=== PATIENT | female | born 1970 | race African-American/Black ===

== ENCOUNTER → 2022-11-17 08:09 | Outpatient (BNVA) | payer OTHER, SELFPAY | PROVIDERS: PCP Internal Medicine; Visit Provider Physician Assistant ==

== ENCOUNTER → 2022-11-28 08:17 | Outpatient (BNVA) | payer OTHER, SELFPAY | PROVIDERS: PCP Internal Medicine; Visit Provider Physician Assistant | DX: E66.9 Obesity, unspecified (principal); E78.5 Hyperlipidemia, unspecified; I89.0 Lymphedema, not elsewhere classified; I10 Essential (primary) hypertension; D68.9 Coagulation defect, unspecified; K58.9 Irritable bowel syndrome, unspecified; K76.0 Fatty (change of) liver, not elsewhere classified; Z98.84 Bariatric surgery status; Z68.38 Body mass index [BMI] 38.0-38.9, adult | CPT/HCPCS: 99202 ==

== ENCOUNTER 2023-01-02 08:10 | Outpatient (REF) | payer OTHER, SELFPAY ==
[2023-01-02 08:28] LABS: MANUAL DIFF FLAG NO
[2023-01-02 08:48] LABS: Basophils Percent Auto 0.4 % (0-2); Eosinophils Percent Auto 0.7 % (0-4); Hematocrit 42.4 % (37.0-47.0); Hemoglobin 13.7 g/dl (12.0-16.0); Imm Gran Abs Auto 0.01 X10*3/uL (0.00-0.03); Imm Gran Pct Auto 0.2 % (0.0-0.4); Lymphocytes Absolute Auto 1.5 X10*3/uL (1.2-4.9); Lymphocytes Percent Auto 27.7 % (20-40); Mean Corpuscular HGB Conc 32.3 g/dl (31.0-35.0); Mean Corpuscular Hemoglobin 29.8 pg (27.0-33.0); Mean Corpuscular Volume 92.4 fL (80.0-98.0); Mean Platelet Volume 9.3 fL (9.4-12.3); Monocytes Absolute Auto 0.3 X10*3/uL (0.1-1.2); Monocytes Percent Auto 5.6 % (2-11); Neutrophils Absolute Auto 3.5 x10*3/uL (2.0-8.3); Neutrophils Percent Auto 65.4 % (45-73); Platelet Count 291 X10*3/uL (160-400); Red Blood Count 4.59 X10*6/uL (4.20-5.50); White Blood Count 5.3 X10*3/uL (4.8-10.8)
[2023-01-02 09:02] LABS: Estimated Average Glucose 105 mg/dL; Hemoglobin A1c % 5.3 %
[2023-01-04 14:28] LABS: Calcium (PTHI) 10.1 mg/dL (8.6-10.4); PTHI 55 pg/mL (16-77)
[2023-01-05 14:54] LABS: Zinc 75 mcg/dL (60-130)
[2023-01-06 06:04] LABS: Vitamin A 31 mcg/dL (38-98)
[2023-01-07 15:39] LABS: Vitamin B1 <6 nmol/L (8-30)
== END 2023-01-02 08:11 | disposition home or self-care (01) ==
LOC: HO.LAB 08:10
PROVIDERS: PCP Internal Medicine; Visit Provider Physician Assistant
DX: D68.9 Coagulation defect, unspecified (principal); E66.9 Obesity, unspecified; E78.5 Hyperlipidemia, unspecified; I10 Essential (primary) hypertension; K58.9 Irritable bowel syndrome, unspecified; K76.0 Fatty (change of) liver, not elsewhere classified; Z98.84 Bariatric surgery status; Z71.3 Dietary counseling and surveillance
CPT/HCPCS: 36415; 80053; 80061; 82306; 82607; 82728; 82746; 83036; 83525; 83540; 83970; 84425; 84443; 84590; 84630; 85025; 86140; 97802

== ENCOUNTER → 2023-02-17 10:02 | Outpatient (BNVA) | payer OTHER, SELFPAY | PROVIDERS: PCP Internal Medicine; Visit Provider Physician Assistant | DX: E66.9 Obesity, unspecified (principal); I82.220 Acute embolism and thrombosis of inferior vena cava; Z68.35 Body mass index [BMI] 35.0-35.9, adult | CPT/HCPCS: 99212 ==

== ENCOUNTER 2023-03-21 09:10 | Outpatient (AMB) | payer OTHER, SELFPAY ==
--- NOTE | 2023-03-21 09:15 | A.OFFVIS_ITS ---
Intake VS Expanded 03/21/23 09:19 Height 5 ft 8 in Weight 226 lb 12.8 oz BMI 34.5 BP 127/82 Blood Pressure Location Rt brachial Blood Pressure Position Sitting Pulse 72 Pulse Source Pulse Oximeter Temp 96 F L Temperature Source Temporal Artery Scan Pulse Oximetry 98 Oxygen Delivery Method Room Air Body Fat 84.4 Body Fat Percentage 37.3 Free Fat Mass 142.2 Muscle Mass 135.2 Visceral Mass 10.0 Water Mass 101.2 BMR 1,939 Intake Visit Reasons: (OV) F/U MWL Allergies No Known Allergies Allergy (Verified 03/21/23 09:18) HPI HPI Comments History of Present Illness Details MWL patient started on 11/28/22 at 252.1 lbs, TBWL of 25.3 lbs or 10%. Goal of 160 lbs and being able to hike with daughter in [place]. Meal plan now: morning -shake afternoon - shake - sometimes frogets bar dinner Walks up to 5 miles per day. PFSH Surgical History History of back surgery Hx of breast biopsy Hx of colonoscopy Hx of hysterectomy Hx of laparoscopic gastric banding S/P laparoscopic sleeve gastrectomy Family History Mother No problems noted. Father No problems noted. Sister No problems noted. Sister No problems noted. Son No problems noted. Son No problems noted. Son No problems noted. Daughter No problems noted. Social History Alcohol intake: former Patient Tobacco Use Status: Never used Tobacco Physical Exam Vital Signs: Last Vital Signs Temp 96 F L 03/21/23 09:19 Pulse 72 03/21/23 09:19 BP 127/82 03/21/23 09:19 Pulse Ox 98 03/21/23 09:19 Oxygen Delivery Method Room Air 03/21/23 09:19 BMI result Body Mass Index 34.5 Assessment & Plan Assessment & Plan (1) Obesity: Code(s): E66.9 - Obesity, unspecified Plan: Pt has completed our MWL program with 25.3 lbs or 10% TBWL in 4 months. She will continue her meal and exercise , declined appt with RD at this time. We discussed o organization and midfulness as keys to continuing her new lifestyle. Will set goal of weighing less than 200 lbs and hining, using TBP videos also by next appt with me in 3 months. Patient is obese and is not considered stable at this time. I spent 25 minutes in total with patient reviewing/updating records, examining the patient and counseling the patient on weight management as detailed above. (2) S/P laparoscopic sleeve gastrectomy: Comment: [id number] Code(s): Z98.84 - Bariatric surgery status Coding Level of Care Code Est Pt Level 4 (93880) Diagnoses Obesity E66.9 S/P laparoscopic sleeve gastrectomy Z98.84
[2023-03-21 09:19] VITALS: BP 127/82; PULSE 72; TEMP 35.5; O2SAT 98; BMI 34.5
== END 2023-03-21 09:50 | disposition home or self-care (01) ==
PROVIDERS: PCP Internal Medicine; Visit Provider Physician Assistant
DX: E66.9 Obesity, unspecified (principal); Z68.34 Body mass index [BMI] 34.0-34.9, adult; Z90.3 Acquired absence of stomach [part of]; Z98.84 Bariatric surgery status
CPT/HCPCS: 99213

== ENCOUNTER → 2023-03-21 09:10 | Outpatient (BNVA) | payer OTHER, SELFPAY | PROVIDERS: PCP Internal Medicine; Visit Provider Physician Assistant | DX: E66.9 Obesity, unspecified (principal); Z98.84 Bariatric surgery status; Z68.34 Body mass index [BMI] 34.0-34.9, adult | CPT/HCPCS: 99212 ==

== ENCOUNTER 2023-08-11 08:58 | Outpatient (AMB) | payer OTHER, SELFPAY ==
--- NOTE | 2023-08-11 09:06 | A.SPINEOV_ITS ---
Intake Intake Visit Reasons: Lumbar spinal stenosis Intake Note: Ms. Goff is here today c/o low back pain. MRI done @ [facility]. Manager Non Profit Required: No Allergies No Known Allergies Allergy (Verified 03/21/23 09:18) Assessment & Plan Assessment & Plan (1) Chronic SI joint pain: Code(s): M53.3 - Sacrococcygeal disorders, not elsewhere classified; G89.29 - Other chronic pain Plan Dear Cale, Thank you for referring Mrs Goff to our office today. She is a very nice 53-year-old female with a history of a previous lumbar surgery [place] [address] Mata who presents to the office today, who presents with a multiyear history of pain on the left side of her low back which radiates down into her posterior thigh and into her calf. The pain has progressed slowly over time, but it is now to a point where it is there 24 hours a day. It is particularly bad at night when she is trying to sleep. If she lays on her back or on her left side it will radiate down her leg. She can get up and move around but it does not necessarily help. The symptoms are not provoked specifically with activity but prolonged walking can make her feel as though she has to limp and she will walk in the flexed posture. Using a shopping cart can help when she is in the store. She has taken over the years medications including tramadol, Tylenol, morphine, oxycodone. She cannot take anti-inflammatories due to a clotting disorder and a blood thinner that she is on. She has been through physical therapy. She has also been through of a host of cortisone injections with Dr. Naranjo. There is a list of these on the [facility] website from an office visit that he recently had for her. She did recently have an L4 block but does not report any significant improvement from that. PMH: History of colon cancer, she had a polyp removed which was cancerous but no further subsequent treatment has been necessary. 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 History of depression, anxiety, recurrent UTI, irritable bowel syndrome, GERD, hypertension, borderline high cholesterol Social hx: She reports that she does not smoke cigarettes, she did try marijuana for her pain and it helped but she did not like the idea of using a long-term. She has 1 cocktail each evening but no excessive alcohol consumption. She has 4 children, all natural births. Medications: Eliquis, tramadol, Tylenol, Ativan, Zyrtec, Flonase, Lasix, Ditropan, Linzess, Cozaar, Protonix, duloxetine Allergies: Oxycodone and Vicodin give her nausea Physical exam: No acute distress, strength and reflexes normal, she has positive FEDERICO sign on the left, positive Gaenslen sign on the left as well as positive finger Carson sign on the left. Imaging review: She has a lumbar MRI done at [facility] in 2022 showing a severely collapsed disc at L5-S1 with what appears to be postsurgical changes on the left side of the lamina. I do not see any specific nerve compression other than some mild foraminal stenosis. Impression: 53-year-old female history of a previous L5-S1 surgery in 1999 presents with a multiyear history of a left-sided low back pain going down into her posterior thigh and into her calf. It is particularly worse at night and when she sleeping on her back or on her left side. It can be elicited with activity as well to a degree. She has been through numerous rounds of conservative treatment for this including PT, injections and medication trials. There are 2 potential sources of her pain. The 1st thing that stands out obviously that she has a severely collapsed disc at L5-S1 but only very mild nerve root impingement. The 2nd thing and I think this may be more pertinent is that her SI joint is demonstrating on physical exam multiple signs of irritation and her story seems to fit well with SI joint inflammation, particularly in that there is a lot of pain with laying on her side at night that will cause it to go down her leg. She did have for natural births, and it is known that that can be a factor in causing SI joint pain. She did have an SI joint injection according to the [facility] records, but it was many years ago. I am going to send a referral back to Dr. Naranjo to see if he will inject this area to more time to see we can get a consistent response with pain relief. If that does not help, then I think we need to look back at the L5-S1 disc as the potential source. Thank you for allowing us to care for your patient. The total time spent with this visit with this patient was 45 minutes reviewing history, physical exam, lumbar MRI imaging review, and implementation of treatment plan or further diagnostic testing Ezio Machado MD,PhD [facility] Orders: Referrals Physiatry Referral G89.29 - Other chronic pain, M53.3 - Sacrococcygeal disorders, not elsewhere classified Coding Level of Care Code New Pt Level 4 (70990) Diagnoses Chronic SI joint pain M53.3; G89.29
== END 2023-08-11 09:38 | disposition home or self-care (01) ==
PROVIDERS: PCP Internal Medicine; Referring Provider Physician Assistant; Visit Provider Physician Assistant
DX: M53.3 Sacrococcygeal disorders, not elsewhere classified (principal); G89.29 Other chronic pain
CPT/HCPCS: 99204

== ENCOUNTER → 2023-08-11 08:58 | Outpatient (BNVA) | payer OTHER, SELFPAY | PROVIDERS: PCP Internal Medicine; Visit Provider Physician Assistant | DX: M53.3 Sacrococcygeal disorders, not elsewhere classified (principal); G89.29 Other chronic pain | CPT/HCPCS: 99202 ==

== ENCOUNTER 2025-05-21 08:41 | Outpatient (REF) | payer OTHER, SELFPAY ==
--- NOTE | 2025-05-21 08:43 | EMG_ITS ---
Chief complaint: Right worse than left arm pain and numbness Reason for referral: Evaluate for Carpal Tunnel Syndrome Referred by: Dar READ Procedure done: Bilateral upper extremities NCS/EMG Precautions and/or limitations: None The limb temperature was monitored continuously and remained between 32-36 degrees C during the performance of the NCS. Nerve Conduction Studies Anti Sensory Summary Table ?Stim Site NR Onset (ms) Norm Onset (ms) Peak (ms) Norm Peak (ms) O-P Amp (?V) Norm O-P Amp Site1 Site2 Delta-0 (ms) Dist (cm) Compa (m/s) Norm Compa (m/s) Left Median Anti Sensory (2nd Digit) Wrist ? 3.5 4.6 <3.6 27.6 >10 Wrist 2nd Digit 3.5 14.0 40 Right Median Anti Sensory (2nd Digit) Wrist ? 3.1 4.0 <3.6 24.5 >10 Wrist 2nd Digit 3.1 14.0 45 Right Radial Anti Sensory (Thumb) Forearm ? 1.4 1.9 <3.1 43.9 Forearm Thumb 1.4 0.0 Left Ulnar Anti Sensory (5th Digit) Wrist ? 2.4 3.2 <3.7 42.2 >15.0 Wrist 5th Digit 2.4 14.0 58 Right Ulnar Anti Sensory (5th Digit) Wrist ? 2.4 3.3 <3.7 26.1 >15.0 Wrist 5th Digit 2.4 14.0 58 Motor Summary Table ?Stim Site NR Onset (ms) Norm Onset (ms) O-P Amp (mV) Norm O-P Amp iAmp (mV) Amp (1st) (%) Site1 Site2 Delta-0 (ms) Dist (cm) Compa (m/s) Norm Compa (m/s) Left Median Motor (Abd Poll Brev) Wrist ? 7.2 <3.9 3.4 >4.5 3.9 100.0 Elbow Wrist 5.0 23.0 46 >45 Elbow ? 12.2 3.1 3.4 91.2 Right Median Motor (Abd Poll Brev) Wrist ? 4.3 <3.9 8.6 >4.5 9.6 100.0 Elbow Wrist 4.6 23.0 50 >45 Elbow ? 8.9 7.3 8.1 84.9 Left Ulnar Motor (Abd Dig Minimi) Wrist ? 2.8 <3.0 10.5 >5 12.0 100.0 B Elbow Wrist 3.9 22.0 56 >45 B Elbow ? 6.7 10.3 11.8 98.1 A Elbow B Elbow 1.4 10.0 71 >45 A Elbow ? 8.1 10.2 11.6 97.1 Right Ulnar Motor (Abd Dig Minimi) Wrist ? 2.9 <3.0 11.5 >5 15.0 100.0 B Elbow Wrist 3.7 22.0 59 >45 B Elbow ? 6.6 11.6 15.1 100.9 A Elbow B Elbow 1.4 10.0 71 >45 A Elbow ? 8.0 11.7 15.1 101.7 EMG ?Side Muscle Nerve Root Ins Act Fibs Psw Amp Dur Poly Recrt Int Pat Comment Right 1stDorInt Ulnar C8-T1 Nml Nml Nml Nml Nml 0 Nml Complete Right FlexCarRad Median C6-7 Nml Nml Nml Nml Nml 0 Nml Complete Right FlexCarpiUln Ulnar C8,T1 Nml Nml Nml Nml Nml 0 Nml Complete Right Biceps Musculocut C5-6 Nml Nml Nml Nml Nml 0 Nml Complete Right Triceps Radial C6-7-8 Nml Nml Nml Nml Nml 0 Nml Complete Right Deltoid Axillary C5-6 Nml Nml Nml Nml Nml 0 Nml Complete Left 1stDorInt Ulnar C8-T1 Nml Nml Nml Nml Nml 0 Nml Complete Left FlexCarRad Median C6-7 Nml Nml Nml Nml Nml 0 Nml Complete Left FlexCarpiUln Ulnar C8,T1 Nml Nml Nml Nml Nml 0 Nml Complete Left Biceps Musculocut C5-6 Nml Nml Nml Nml Nml 0 Nml Complete Left Triceps Radial C6-7-8 Nml Nml Nml Nml Nml 0 Nml Complete Left Deltoid Axillary C5-6 Nml Nml Nml Nml Nml 0 Nml Complete FINDINGS: Right median motor nerve showed prolonged distal latency, normal amplitude and normal conduction velocity. Left median motor nerve showed prolonged distal latency, small amplitude and normal conduction velocity. Bilateral median sensory nerves showed prolonged peak latency. All other nerves tested were within normal. Concentric needle EMG was performed in selected muscles of the bilateral upper extremities. Study did not reveal signs of electric abnormalities as shown in the table above. IMPRESSION: 1. This is an abnormal study. 2. There is electrodiagnostic evidence for bilateral moderate-severe median neuropathy at the wrist, consistent with carpal tunnel syndrome. 3. There is no electrodiagnostic evidence for ulnar neuropathy, brachial plexopathy, or cervical radiculopathy. Thank you for your kind referral. Yahaira Carolina MD, LIZETH Board Certified, [place] Board of [employer] Medicine and Rehabilitation (ABPMR) Board Certified, [place] Board of Electrodiagnostic Medicine (ABEM) CODIN [phone] MTDD
--- OUTSIDE RECORDS SUMMARY | 2025-05-21 10:04 | XMS_ITS | Clinical Summary ---
Author Organization [facility] Address [address] [place] [address] Care Team Providers Care Diet Aide Name Role Phone Unavailable Primary Care Provider Unavailabl e Source Comments PLEASE NOTE, if this patient is a minor, it may be UNLAWFUL to discuss sensitive information that is contained in these records (such as FAMILY PLANNING, MENTAL HEALTH or SUBSTANCE ABUSE) with the minor patient's parent or other person without the patient's specific authorization.[facility] Social History Tobacco Use Types Packs/Day Years Used Date Smoking Tobacco: Never Assessed Social Connections Answer Date Recorded Social Connections and Isolation 0 02/24/2021 Financial Resource Strain Answer Date R ecorded Financial Resource Strain 0 2020 Stress Answer Date Recorded Stress 0 02/24/2021 Physical Activity Answer Date Recorded Physical Activity 0 02/24/2021 Food Insecurity Answer Date Recorded Food 0 02/24/2021 Transportation Needs Answer Date Record ed Transportation 0 02/24/2021 Housing Stability Answer Date Recorded Housing 0 02/24/2021 Safety and Environment Answer Date Kelvin rded Safety 0 02/24/2021 Utilities Answer Date Recorded Utilities 0 02/24/2021 Employment Answer Date Recorded Employment 0 02/24/2021 Comments Unknown Sex and Gender Information Value Date Recorded Sex Assigned at Not on file Legal Sex Female 5:23 AM PDT Gender Identity Not on file Sexual Orientation Not on file Plan of Treatment Not on file Insurance [facility] NET DENTAL
--- OUTSIDE RECORDS SUMMARY | 2025-05-21 10:04 | XMS_ITS | Encounter Summary ---
Author Organization [facility] Address [address] [place] [address] Care Team Providers Care Tank Truck Mechanic Name Role Phone Antelmo Ruelas MD Primary Care Provider [phone] Reason for Visit * Reason Onset Date Comments Forms/questionnaires 05/14/2025 [facility] Medical Form Encounter Details Date Type Department Care Team (Late st Contact Info) Description 05/14/2025 Telephone Internal Medicine - [address] [phone] Antelmo Ruelas MD [address] [place] [id number] Social History Tobacco Use Types Packs/Day Years Used Date Smoking Tobacco: Never Smokeless Tobacco: Never Alcohol Use Standard Drinks/Week Comments Yes 0 (1 standard drink = 0.6 oz pur e alcohol) Interpersonal Safety Answer Date Record ed Physical Abuse 10/09/2024 Verbal Abuse 10/09/2024 Comments No Sex and Gender Information Value Date Recorded Sex Assigned at Female 07/30/2024 1:28 PM EST Legal Sex Female 6:07 AM EST Gender Identity Female 07/30/2024 1:28 PM EST Sexual Orientation Straight 07/30/2024 1: 28 PM EST documented as of this encounter Progress Notes * Belem Mccain MA - 05/19/2025 3:48 PM EDT See message from 04/11/25. * Kt Breen - 05/19/2025 8:40 AM EDT Pt came in person to check on the status of her paperwork, pls call the pt back at [phone]. The deadline of this paperwork was 04/25/25. * Stephanie Olivo - 05/14/2025 1:29 PM EDT Please see 04-11-25 encounter Pt states that she picked up 1 of 2 forms that were dropped off but the one she dropped off 04-11-[address] Ruelas and she needs it cayetano. documented in this encounter Plan of Treatment Upcoming Encounters Date Type Department Care Team (Late st Contact Info) Description 07/10/2025 8:15 AM EDT Office Visit Bariatric Surgery - [address] [phone] Lucretia Garvin PA [address] [place] [phone] 12/22/2025 3:40 PM EDT Appointment Radiology Department - [address] [phone] documented as of this encounter Visit Diagnoses Not on filedocumented in this encounter Care Teams Tank Truck Mechanic Relationship Specialty Start Date End Date Antelmo Ruelas MD [address] [place] [phone] PCP - General Internal Medicine 07/01/11 documented as of this encounter
--- OUTSIDE RECORDS SUMMARY | 2025-05-21 10:04 | XMS_ITS ---
Author Organization [address] [facility] Address [address] [place] [address] Phone Care Team Providers Care Ride Assembly Supervisor Name Role Phone Antelmo Ruelas MD Primary Care Provider [phone] Active Problems Problem Noted Date Diagnosed Date S/P bariatric surgery 12/12/2024 History of recurrent deep vein thrombosis (DVT) 10/21/2024 Bilateral primary osteoarthritis of knee 025 Abdominal pain 10/16/2024 Phlebitis 10/16/2024 Class 2 severe obesity with serious comorbidity and body mass index (BMI) of 35.0 to 35.9 in adult ([facility] V24, [facility] V28) 10/16/2024 Pulmonary embolism without a cute cor pulmonale ([facility] V24, [facility] V28) 07/25/2024 Hepatic steatosis 11/10/2022 History of COVID-19 09/14/2021 Obstructive sleep apnea 12/09/2020 Overview (07/01/2024): [facility] Home Sleep Apnea Test: Date 12/02/2020; Wt 270#; BMI 41; CHI (AHI) 5, AI 1; HI 4; Unclassified apneas 0; Obstructive apneas 0; Central apneas 4; Mixed apneas 0; hypopneas 14; average oxygen saturation 93% (lowest 88% without saturations <88% for 5% or more of study) - Obstructive Sleep Apnea - mild; mostly hypopneas with central apneas; without sleep related hypoventilation by 2020 home sleep apnea test. 11/2021 Home Sleep Study did not reveal sleep apnea or nocturnal hypoxia. mychart sent - if still symptomatic; recommend diagnostic polysomnogram Iron deficiency 09/17/2020 Overview (07/01/2024): Without anemia, 09/2020 Vitamin D deficiency 09/17/2020 Overview (07/01/2024): 09/2020 Uterine fibroid 09/16/2020 Venous insufficiency of both lower extremities 0 09/16/2020 Breast mass 07/07/2020 Overview (07/01/2024): right breast major duct excision on 05/29/2020; the pathology demonstrates a large intraductal papilloma and apocrine metaplasia. 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 Resection was a cure. NO potential for recurrance at that location. 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 Past Plans No past plan information found. Radiation Treatments * No radiation treatments are documented for this patient in [facility]. Treatments may have been administered in another system. Lifetime Dose Tracking * Chemical Lifetime Dose Automatic Entry Manual Entr y Fluoro Time 2 minutes 2 minutes 0 minutes Air Kerma 86.82 mGy 86.82 mGy 0 mGy Dose Area Product 1,478.8 mGy-cm2 1,478.8 mGy-cm2 0 mG y-cm2
--- OUTSIDE RECORDS SUMMARY | 2025-05-21 10:05 | XMS_ITS | Clinical Summary ---
Author Organization [facility] Address [address] [place] [address] Phone Care Team Providers Care Circus Hand Name Role Phone Antelmo Ruelas MD Primary Care Provider [phone] Allergies Active Allergy Reactions Criticality Noted Date Comments Hydrocodone Nausea Only Low 10/09/2024 HYDROMORPHONE OK Oxycodone Hcl Nausea And Vomiting Low 07/01/2024 HYDROMORPHONE OK Medications cetirizine (ZyrTEC) 10 mg tablet Take 1 tablet (10 mg total) by mouth 1 (one) time each day. 2 Active fluticasone propionate (FLONASE) 50 mcg/actuation nasal spray INHALE 2 SPRAYS BY NASAL ROUTE DAILY 2 Active LORazepam (ATIVAN) 0.5 mg tablet Take 1 tablet (0.5 mg total) by mouth if needed for anxiety. Active rivaroxaban (XARELTO) 20 mg tablet Take by mouth 1 (one) time each day with dinner. Take with food. Active losartan (COZAAR) 25 mg tablet Take 1 tablet (25 mg total) by mouth 1 (one) time each day. 90 tablet 1 4 Active gabapentin (NEURONTIN) 300 mg capsule Take 1 capsule (300 mg total) by mouth 3 (three) times a day. Active albuterol HFA (PROAIR HFA ; PROVENTIL HFA ; VENTOLIN HFA) 90 mcg/actuation inhalerIndicati ons:Acute cough Inhale 2 puffs by mouth every 4 (four) hours if needed for wheezing. Inhale 2 Puffs into the lungs every 4 hours as needed for Cough or Wheezing. - Inhalation 6.7 g 4 Active multivitamin tablet Take 1 tablet by mouth 1 (one) time each day. Active BIOTIN ORAL Take by mouth. Act fiorella ferrous sulfate 325 mg (65 mg iron) EC tablet Take 1 tablet (325 mg total) by mouth 1 (one) time each day with breakfast. Do not crush, chew, or split. Active omeprazole (PriLOSEC) [address] capsule Take 1 capsule (40 mg total) by mouth 1 (one) time each day. DO NOT CRUSH OR CHEW 5 Active chlorthalidone (HYGROTON) 25 mg tablet Take 1 tablet (25 mg total) by mouth 1 (one) time each day. Active methylPREDNISol one (MEDROL) 4 mg tablet Take 6 tabs PO on day 1, 5 tabs PO on day 2, 4 tabs PO on day 3, 3 tabs PO on day 2, 2 tabs PO on day 5 and 1 tab PO on day 6. 21 tablet 5 Active Active Problems Problem Noted Date Diagnosed Date S/P bariatric surgery 12/12/2024 History of recurrent deep vein thrombosis (DVT) 10/21/2024 Bilateral primary osteoarthritis of knee 025 Abdominal pain 10/16/2024 Phlebitis 10/16/2024 Class 2 severe obesity with serious comorbidity and body mass index (BMI) of 35.0 to 35.9 in adult ([facility] V24, [facility] V28) 10/16/2024 Pulmonary embolism without a cute cor pulmonale ([facility] V24, [facility] V28) 07/25/2024 Hepatic steatosis 11/10/2022 History of COVID-19 09/14/2021 Obstructive sleep apnea 12/09/2020 Overview (07/01/2024): [facility] Home Sleep Apnea Test: Date 12/02/2020; Wt [...] Hips, Knees Recurrent UTI 01/10/2012 Hyperlipidemia 09/15/2011 Encounters Date Type Department Care Team Description 05/14/2025 Telephone Internal Medicine - [address] [phone] Antelmo Ruelas MD 05/06/2025 Telephone Internal Medicine - [address] [phone] Antelmo Ruelas MD 04/24/2025 7:30 AM EDT Treatment [address] [phone] Richard Fernandez, [employer] Strain of right Achilles tendon, initial encounter (Primary Dx) 04/11/2025 Telephone Internal Medicine - [address] [phone] Antelmo Ruelas MD 04/08/2025 6:33 PM EDT - 04/08/2025 9:50 PM EDT Emergency [facility] Emergency [address] [place] [phone] Antelmo Montero MD Pain (Primary Dx); Hx of pulmonary embolus; Deep vein thrombosis (DVT) of right lower extremity, unspecified chronicity, unspecified vein ([facility] V24, [facility] V28) Discharge Disposition: Home or Self Care 04/08/2025 1:30 PM EDT Office Visit Internal Medicine - [address] [phone] Treva Bergman, LIN Acute pain of left shoulder (Primary Dx); Acute midline thoracic back pain; Left hand pain; Pulmonary embolism without acute cor pulmonale, unspecified chronicity, unspecified pulmonary embolism type ([facility] V24, [facility] V28) 03/21/2025 Telephone Internal Medicine - [address] [phone] Sissy Shah RN 03/19/2025 9:30 AM EDT Office Visit Walk-In Clinic - [address] [phone] Herb Baum PA Right lower quadrant abdominal pain (Primary Dx); Symptoms involving urinary system 03/18/2025 Telephone Internal Medicine - [address] [phone] Antelmo Ruelas MD 03/13/2025 7:15 AM EDT Evaluation [facility] Rehabilitation [facility] [address] [place] [address] Anne Fernandez, PT Strain of right Achilles tendon, initial encounter (Primary Dx) 03/11/2025 8:15 AM EDT Office Visit Bariatric Surgery - [place] [address] [place] [address] Lucretia Garvin PA Class 2 severe obesity due to excess calories with serious comorbidity and body mass index (BMI) of 35.0 to 35.9 in adult (CMS/HCC V24, [facility] V28) (Primary Dx); Bariatric surgery status 02/24/2025 2:30 PM EDT Office Visit Obstetrics and Gynecology - [address] [phone] Sarah Novak, WANDA Vulvar irritation (Primary Dx) from Last 3 Months Immunizations Name Administration Dates Next Due Influenza Quadravalent, MDCK , 0.5ml, preservative free (Flucelvax) 6mo and older 06/21/2023,06/23/2022,06/10/2021,2019 Influenza trivalent, 0.5mL, preservative free (Fluarix; FluLaval; Fluzone) ages 6mo and older (Afluria) 3 years and older 06/15/2015,06/18/2012,08/29/2011 PPD Test 01/20/2017,06/18/2012 Rubella 10/23/2015 Tb Skin Test 10/28/2022 Tdap Tetanus diptheria acell ular pertussis (Boostrix; Adacel) 7yo and older 06/21/2023,08/29/2011 Surgical History Surgery Date Site/Laterality Comments GASTRIC BYPASS 04/16/2016 PROCEDURE: GASTRIC BYPASS FOR OBESIT; COMMENT: Sleeve Gastrecetomy, previous lap band surgery BACK SURGERY 10/17/1999 PROCEDURE: HISTORICAL BACK SURGERY; COMMENT: Lumbar Laminectomy UPPER GASTROINTESTINAL ENDOSCOPY 04/09/2003 Benjamin PROCEDURE: LA UPPER GI ENDOSCOPY PERFORMED; COMMENT: Antral gastritis; H. pylori treated with Prevpac UPPER GASTROINTESTINAL ENDOSCOPY 11/19/2012 PROCEDURE: LA UPPER GI ENDOSCOPY PERFORMED; COMMENT: lap band; chronic gastritis with H. pylori UPPER GASTROINTESTINAL ENDOSCOPY 07/01/2020 PROCEDURE: UPPER GI ENDOSCOPY/EXAM; COMMENT: esophagitis COLONOSCOPY 07/01/2020 PROCEDURE: HISTORICAL COLONOSCOPY; COMMENT: large pedunculated polyp removed from transverse colon with adenocarcinoma OTHER SURGICAL HISTORY PROCEDURE: ---- OTHER ----; COMMENT: IVC filter, remains in place OTHER SURGICAL HISTORY PROCEDURE: ---- OTHER ----; COMMENT: ablation of uterine fibroid COLONOSCOPY 08/04/2021 PROCEDURE: HISTORICAL COLONOSCOPY; COMMENT: tubular adenoma OTHER SURGICAL HISTORY 12/07/2021 PROCEDURE: LA SLCTV CATH PLMT JOE SYS 1ST ORDER BRANCH OTHER SURGICAL HISTORY 12/07/2021 PROCEDURE: X-RAY EXAM OF TRUNK VEINS OTHER SURGICAL HISTORY 12/07/2021 PROCEDURE: LA INTRAVASCULAR US NONCORONARY RS&I INTIAL VESSEL OTHER SURGICAL HISTORY 12/07/2021 PROCEDURE: LA INTRAVASCULAR US NONCORONARY RS&I ADDL VESSEL OTHER SURGICAL HISTORY 12/07/2021 PROCEDURE: ULTRASOUND GUIDANCE FOR VASCULAR AC TOTAL ABDOMINAL HYSTERECTOMY GASTRIC BAND ADJUSTMENT BAND REMOVED STEREOTACTIC CORE BIOPSY BX BREAST W DEVICE 1ST LESION STEREOTACTIC GUIDE Left benign Medical History Medical History Date Comments History of DVT (deep vein thrombosis) 08/19/2011 DX:History of DVT (deep vein thrombosis) Essential hypertension 01/27/2016 DX:Essent ial hypertension IBS (irritable bowel syndrome) 07/19/2012 D X:IBS (irritable bowel syndrome) Anticoagulated on Coumadin 12/17/2017 DX:An ticoagulated on Coumadin Morbid obesity with BMI of 4 0.0-44.9, adult (CMS/HCC V24, CMS/HCC V28) 11/02/2015 DX:Morbid obesity wit h BMI of 40.0-44.9, adult (HCC) GERD (gastroesophageal reflu x disease) 05/21/2013 DX:GERD (gastroesophageal re flux disease); COMMENT: H.pylori Osteoarthritis 06/18/2012 DX:Osteoarthriti s; COMMENT: Cervical, & Lumbosacral Spine, Hips, Knees History of bariatric surgery 06/18/2012 DX: History of bariatric surgery; COMMENT: Gastric sleeve, previous lap band Allergic rhinitis 11/30/2018 DX:Allergic rh initis Hyperlipidemia 09/15/2011 DX:Hyperlipidemi a Recurrent UTI 01/10/2012 DX:Recurrent UTI Hematuria, microscopic 11/30/2018 DX:Hematu tab, microscopic Stress incontinence 11/30/2018 DX:Stress in continence Lumbar radiculitis 11/30/2018 DX:Lumbar rad iculitis Adjustment reaction with anx iety and depression 02/13/2018 DX:Adjustment reaction with anxiety and depression Chronic constipation 07/19/2012 DX:Chronic constipation Lymphedema 11/02/2015 DX:Lymphedema 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 Resection was a cure. NO potential for recurrance at that location. Recommend repeat colonoscopy in 1 year and then every 5 years Asthma Hiatal hernia Chronic kidney disease CYST ON K IDNEY Clotting disorder ([facility]/HCC V24) Pulmonary embolism (CMS/HCC V24, CMS/HCC V28) Neuromuscular disorder (CMS/ HCC V24, [facility]/HCC V28) CLOTS IN LEGS Family History Medical History Relation Name Comments No Known Problems Brother 1 No Known Problems Brother 2 Allergies Daughter Other: muscle deficiency Daughter Hypertension Father Colon cancer Maternal Grandfather Other: bone cancer Maternal Grandfather Prostate cancer Maternal Grandfather Throat cancer Maternal Grandfather COPD Maternal Grandmother CA, Hyp ertension, Cataract No Known Problems Mother No Known Problems Sister 1 No Known Problems Sister 2 No Known Problems Sister 3 No Known Problems Son 1 No Known Problems Son 2 No Known Problems Son 3 Blindness Neg Hx Breast cancer Neg Hx Glaucoma Neg Hx Macular degeneration Neg Hx Strabismus Neg Hx Relation Name Status Comments Brother 1 Alive Brother 2 Alive Daughter Alive Father Alive Maternal Grandfather Maternal Grandmother Materna l Grandmother with PE/DVT Mother Alive Sister 1 Alive Sister 2 Alive Sister 3 Alive Son 1 Alive Son 2 Alive Son 3 Alive Social History Tobacco Use Types Packs/Day Years Used Date Smoking Tobacco: Never Smokeless Tobacco: Never Tobacco Cessation:Counseling Given: Not Answered Alcohol Use Standard Drinks/Week Comments Yes 0 [...] Orientation Straight 07/30/2024 1: 28 PM EST Obstetrics History Para Term AB IAB SAB Ectopic Multiple Livin g Live Births 4 4 4 4 4 Date Outcome GA Total Labor Labor/2nd/3rd Weight Sex Type Anes PTL Mica A1 A5 Name Clin 1982 Term M Vag-Spo nt Living 1983 Term M Vag-Spo nt Living 1989 Term F Incompl ete M Living 1992 Term M Vag-Spo nt Living Last Filed Vital Signs Vital Sign Reading Time Taken Comments Blood Pressure 127/86 04/08/2025 9:24 PM EDT Pulse 59 04/08/2025 9:24 PM EDT Temperature 36.8 C (98.3 F) 04/08/2025 9:24 PM EDT Respiratory Rate 18 04/08/2025 9:24 PM EDT Oxygen Saturation 100% 04/08/2025 9:24 PM EDT Inhaled Oxygen Concentration - - Weight 100 kg (221 lb) 04/08/2025 3:33 PM EDT Height 172.7 cm (5' 8 ) 04/08/2025 3:33 PM EDT Body Mass Index 33.6 04/08/2025 3:33 PM EDT Plan of Treatment Upcoming Encounters Date Type Department Care Team (Late st Contact Info) Description 07/10/2025 8:15 AM EDT Office Visit Bariatric Surgery - [address] [phone] Lucretia Garvin, JACEK [address] [place] [phone] 12/22/2025 3:40 PM EDT Appointment Radiology Department [address] [phone] Health Maintenance Due Date Last Done Comments Hepatitis B Vaccines (1 of 3 - 19+ 3-dose series) 1987 Zoster Vaccines (1 of 2) 1987 Cervical Cancer Screening: Pap Smear 1989 Pneumococcal Vaccine: 50+ Years (2 of 2 - PCV) 05/11/2016 05/11/2015 COVID-19 Vaccine (3 - Moderna risk series) 12/21/2020 11/23/2020, 10/26/2020 HIV Screening 08/20/2022 Hepatitis C Screening 08/20/2022 Social Influencers of Health Screening 08/20/2022 Depression Screening 09/11/2024 Influenza Vaccine (#1) 2025 , 06/21/2023, 06/23/2022, Additional history exists Hypertension/CHF/CAD Annual BMP Blood Test 04/08/2026 04/08/2025, 01/14/2025, 10/10/2024, Additional history exists Breast Cancer Screening 12/16/2026 12/17/19 25, 04/16/2021, 03/12/2020, Additional history exists Colorectal Cancer Screening: Colonoscopy 03/23/2028 03/23/2023 Cholesterol Screening (Lipid Panel) 01/14/2030 01/14/2025, 10/23/2023 DTaP,Tdap,and Td Vaccines (4 - Td or Tdap) 06/21/2033 06/21/2023, 06/21/2022, 08/29/2011 Hepatitis A Vaccines Aged Out 01/02/2014 No long er eligible based on patient's age to complete this topic HIB Vaccines Aged Out No longer eligi ble based on patient's age to complete this topic HPV Vaccines Aged Out No longer eligi ble based on patient's age to complete this topic IPV Vaccines Aged Out No longer eligi ble based on patient's age to complete this topic MMR Vaccines Aged Out No longer eligi ble based on patient's age to complete this topic Meningococcal ACWY Vaccine Aged Out N o longer eligible based on patient's age to complete this topic Meningococcal B Vaccine Aged Out No l onger eligible based on patient's age to complete this topic RSV Immunization Patients Under 20 months Aged Out No longer eligible based on patient's age to complete this topic Varicella Vaccines Aged Out No longer eligible based on patient's age to complete this topic Procedures Procedure Name Priority Date/Time Associated Diagnosis Comments URINALYSIS MICROSCOPIC ONLY Routine 05/07/2025 1:09 PM EDT Micturition frequency URINALYSIS MICROSCOPIC ONLY Routine 05/07/2025 1:09 PM EDT Micturition frequency CULTURE URINE Routine 05/07/2025 1:09 PM EDT Micturition frequency ECG ANNOTATED 04/10/2025 TROPONIN I HIGH SENSITIVITY STAT 04/08/2025 7:[address] ANGIO CHEST WO AND/OR W CONTRAST STAT 04/08/2025 7:18 PM EDT Pain Hx of pulmonary embolus ECG 12-LEAD STAT 04/08/2025 7:01 PM EDT VAS US DUPLEX LOWER EXT VENOUS RIGHT STAT 04/08/2025 6:13 PM EDT Pain CBC WITH AUTO DIFFERENTIAL STAT 04/08/2025 3:48 PM EDT PROTHROMBIN TIME WITH INR STAT 04/08/2025 3:48 PM EDT MAGNESIUM STAT 04/08/2025 3:48 PM EDT LIPASE STAT 04/08/2025 3:48 PM EDT COMPREHENSIVE METABOLIC PANEL STAT 04/08/2025 3:48 PM EDT CBC AND DIFFERENTIAL STAT 04/08/2025 3:48 PM EDT POC URINE NON-AUTO W/O MICRO Routine 03/19/2025 10:39 AM EDT Symptoms involving urinary system URINALYSIS MICROSCOPIC ONLY Routine 03/19/2025 10:20 AM EDT Symptoms involving urinary system URINALYSIS MICROSCOPIC ONLY Routine 03/19/2025 10:20 AM EDT Symptoms involving urinary system CULTURE URINE Routine 03/19/2025 10:20 AM EDT Symptoms involving urinary system LIPID PANEL WITH REFLEX TO DIRECT LDL Routine 01/14/2025 1:32 PM EDT Essential hypertension MG MAMMO DIGITAL SCREENING W SANTY BILAT Routine 12/16/2024 5:36 PM EDT Screening mammogram for breast cancer HM COLONOSCOPY Routine 03/23/2023 from Last 3 Months or Most Recently Relevant to Health Maintenance Results * (ABNORMAL) Urinalysis microscopic only (05/07/2025 1:09 PM EDT) Only the most recent of2 resultswithin the time period is included. RBC, Urine 3.7 0 - 4 /HPF LAB URINALYSIS - AUTOMATED METHOD 05/07/2025 3:06 PM [facility] WBC, Urine 8.4(H) 0 - 4 /HPF LAB URINALYSIS - AUTOMATED METHOD 05/07/2025 3:06 PM [facility] Squamous Epithelial, Urine 19 0 - 60 /LPF LAB URINALYSIS - AUTOMATED METHOD 05/07/2025 3:06 PM [facility] Bacteria, Urine Many(A) Negative /HPF LAB URINALYSIS - AUTOMATED METHOD 05/07/2025 3:06 PM [facility] Hyaline Casts, Urine 0.8 0 - 3 /LPF LAB URINALYSIS - AUTOMATED METHOD 05/07/2025 3:06 PM [facility] Urine Urine specimen obtained by clean catch procedure / Unknown Non-blood Collection / Unknown 05/07/2025 1:09 PM EDT 05/07/2025 1:09 PM EDT Naresh Scott MD LAB URINE ORDERABLES Final Resul t [facility] [address] [place] [address], [place] [phone] * (ABNORMAL) Culture urine (05/07/2025 1:09 PM EDT) Only the most recent of2 resultswithin the time period is included. Culture, Urine >=100,000 CFU/mL Escherichia coli(A) KRYSTAL 05/09/2025 10:37 AM EDT [facility] Urine Urine specimen obtained by clean catch procedure / Unknown Non-blood Collection / Unknown 05/07/2025 1:09 PM EDT 05/07/2025 1:09 PM EDT Narrative Organism Antibiotic Method Susceptibility Escherichia coli Amoxicillin/Clavulanate KRYSTAL 4 ug/ml: Susceptible Escherichia coli Ampicillin/Sulbactam KRYSTAL 4 ug/ml: Susceptible Escherichia coli Piperacillin/Tazobactam KRYSTAL <=4 ug/ml: Susceptible Escherichia coli Cefazolin (Urine) KRYSTAL <=1 ug/ml: Susceptible Escherichia coli Cefoxitin KRYSTAL <=4 ug/ml: Susceptible Escherichia coli Ceftazidime KRYSTAL <=0.5 ug/ml: Susceptible Escherichia coli Ceftriaxone KRYSTAL <=0.25 ug/ml: Susceptible Escherichia coli Cefepime KRYSTAL <=0.12 ug/ml: Susceptible Escherichia coli Meropenem KRYSTAL <=0.25 ug/ml: Susceptible Escherichia coli Amikacin KRYSTAL 2 ug/ml: Susceptible Escherichia coli Gentamicin KRYSTAL <=1 ug/ml: Susceptible Escherichia coli Ciprofloxacin KRYSTAL <=0.06 ug/ml: Susceptible Escherichia coli Levofloxacin KRYSTAL <=0.12 ug/ml: Susceptible Escherichia coli Nitrofurantoin KRYSTAL <=16 ug/ml: Susceptible Escherichia coli Trimethoprim/Sulfamethoxazole KRYSTAL <=20 ug/ml: Susceptible Naresh Scott MD LAB MICROBIOLOGY - GENERAL ORDER SHAW Final Result Performing Organization Address [facility] Co de Phone Number [facility] [address] [place] [address], [place] [phone] * ECG-Annotated (04/10/2025) us Provider Onbase ECG ORDERABLES Final Result * Troponin I High Sensitivity (04/08/2025 7:57 PM EDT) [facility] High Sensitivity Troponin I 4 <=54 ng/L LAB CHEMISTRY METHOD 04/08/2025 8:32 PM EDT [facility] Blood Venous blood specimen / Unknown Venipuncture / Unknown 04/08/2025 7:57 PM EDT 04/08/2025 8:02 PM EDT Narrative [facility] - 04/08/2025 8:32 PM EDT High levels of biotin in samples may falsely decrease hsTroponin values. Use caution when interpreting hsTroponin results in patients taking biotin who exhibit renal impairment (eGFR <60) or in patients taking more than 20 mg/day of biotin. us Antelmo Montero MD LAB BLOOD ORDERABLES Final Resul t Performing Organization Address [facility] Co de Phone Number [facility] [address] [place] [address], * CT Angio Chest wo and/or w Contrast (04/08/2025 7:18 PM EDT) Anatomical Region Laterality Modality Body Computed Tomogra phy 04/08/2025 8:02 PM EDT Impressions 04/08/2025 8:02 PM EDT Impression: 1. No pulmonary embolism, aortic dissection or acute pulmonary disease. This document has been electronically signed by: Denver Rahman MD on 04/08/2025 20:02:43 Narrative 04/08/2025 8:02 PM EDT INDICATION: PE suspected, high prob Exam: Contrast-enhanced chest CT pulmonary angiogram with multiplanar reformats. Comparison: None. Findings: There is no pulmonary embolism or thoracic aortic dissection. No mediastinal or hilar masses or adenopathy. No pleural or pericardial effusions. Images below the diaphragms reveal no acute abnormalities. Hepatic cysts are present. Sequela of prior gastric bypass procedure is partially imaged, without evidence of operative complication Lungs are free of focal consolidation. Airways are patent. No pneumothorax. Osseous structures reveal no destructive osseous lesions. Procedure Note Denver Rahman MD - 04/08/2025 INDICATION: PE suspected, high prob Exam: Contrast-enhanced chest CT pulmonary angiogram with multiplanar reformats. Comparison: None. Findings: There is no pulmonary embolism or thoracic aortic dissection.No mediastinal or hilar masses or adenopathy. No pleural or pericardial effusions. Images below the diaphragms reveal no acute abnormalities. Hepatic cysts are present. Sequela of prior gastric bypass procedure is partially imaged, without evidence of operative complication Lungs are free of focal consolidation. Airways are patent. Nopneumothorax. Osseous structures reveal no destructive osseous lesions. IMPRESSION: Impression: 1. No pulmonary embolism, aortic dissection or acute pulmonary disease. This document has been electronically signed by: Denver Rahman MD on 04/08/2025 20:02:43 Antelmo Montero MD IMG CT PROCEDURES Final Result * ECG 12 lead (04/08/2025 7:01 PM EDT) Ventricular Rate ECG 59 BPM GEMUSE Atrial Rate 59 BPM GEMUSE P-R Interval 188 ms GEMUSE QRS Duration 82 ms GEMUSE Q-T Interval 458 ms GEMUSE QTc 453 ms GEMUSE P Wave Edison 50 degrees GEMUSE R Edison 31 degrees GEMUSE T Edison 31 degrees GEMUSE ECG Interpretation Sinus bradycardia When compared with ECG of 08-OCT-2024 10:56, No significant change was found Confirmed by TOR MONROE ([id number]) on 04/09/2025 10:02:31 PM GEMUSE 04/08/2025 7:01 PM EDT 04/09/2025 10:02 PM EDT David Chavarria MD ECG ORDERABLES Final Resul t GEMUSE * Vascular US Duplex Lower Extremity Venous Right (04/08/2025 6:13 PM EDT) Anatomical Region Laterality Modality Vascular, Abdomen Ultrasound 04/09/2025 9:11 AM EDT Impressions 04/09/2025 9:14 AM EDT Impression: 1. Age indeterminate, partially occlusive deep vein thrombosis in the popliteal vein, similar to the 06/29/24 exam. 2. Age indeterminate deep calf vein thrombosis involving a gastrocnemius vein, also similar to previous. Telerad JACEK ([id number]) -------- FINAL REPORT -------- Dictated By: Khushi Stone Dictated Date: 04/09/2025 09:11 ET Assigned Physician: Khushi Stone Reviewed and Electronically Signed By: Khushi Stone Signed Date: 04/09/2025 09:14 ET Workstation ID: [id number] Transcribed By: Self Edit Transcribed Date: 04/09/2025 09:11 ET Narrative 04/09/2025 9:14 AM EDT History: Right lower extremity pain. History of deep vein thrombosis. Comparison: 06/29/24 Findings: Duplex and color Doppler imaging of the deep veins of the right lower extremity was performed from the calf to the inguinal ligament. The common femoral and femoral veins are patent and compress completely. Normal spontaneous and phasic venous flow is demonstrated with Doppler. The popliteal vein is mildly distended and only partially compressible, consistent with deep vein thrombosis. The appearance is similar to the previous study, suggesting chronicity, although acute thrombus cannot be completely excluded. A short segment of a gastrocnemius vein in the calf is also noncompressible, similar to the previous exam. The remainder of the deep calf veins are patent and compressible. Procedure Note Khushi Stone MD - 04/09/2025 History: Right lower extremity pain. History of deep vein thrombosis. Comparison: 06/29/24 Findings: Duplex and color Doppler imaging of the deep veins of the right lowerextremity was performed from the calf to the inguinal ligament. The common femoral and femoral veins are patent and compress completely.Normal spontaneous and phasic venous flow is demonstrated with Doppler. The popliteal vein is mildly distended and only partially compressible,consistent with deep vein thrombosis. The appearance is similar to theprevious study, suggesting chronicity, although acute thrombus cannot becompletely excluded. A short segment of a gastrocnemius vein in the calf is alsononcompressible, similar to the previous exam. The remainder of the deepcalf veins are patent and compressible. IMPRESSION: Impression: 1. Age indeterminate, partially occlusive deep vein thrombosis in thepopliteal vein, similar to the 06/29/24 exam. 2. Age indeterminate deep calf vein thrombosis involving a gastrocnemiusvein, also similar to previous. [place] ([id number]) -------- FINAL REPORT -------- Dictated By: Khushi Stone Dictated Date: 04/09/2025 09:11 ET Assigned Physician: Khushi Stone Reviewed and Electronically Signed By: Khushi Stone Signed Date: 04/09/2025 09:14 ET Workstation ID: [id number] Transcribed By: Self Edit Transcribed Date: 04/09/2025 09:11 ET us David Chavarria MD CV VASCULAR PROCEDURES Mireille l Result * CBC auto differential (04/08/2025 3:48 PM EDT) [facility] WBC 5.8 4.8 - 10.8 K/mcL LAB HEMETOLOGY METHOD 04/08/2025 4:13 PM EDT [facility] RBC 4.00 3.80 - 4.80 M/mcL LAB HEMETOLOGY METHOD 04/08/2025 4:13 PM EDT [facility] Hemoglobin 12.0 11.5 - 16.0 g/dL LAB HEMETOLOGY METHOD 04/08/2025 4:13 PM EDT [facility] Hematocrit 37.2 35.0 - 47.0 % LAB HEMETOLOGY METHOD 04/08/2025 4:13 PM EDT [facility] MCV 92.5 79.0 - 98.0 FL LAB HEMETOLOGY METHOD 04/08/2025 4:13 PM EDT [facility] MCH 29.9 27.0 - 32.0 pcg LAB HEMETOLOGY METHOD 04/08/2025 4:13 PM EDT [facility] MCHC 32.3 32.0 - 37.0 g/dL LAB HEMETOLOGY METHOD 04/08/2025 4:13 PM [facility] RDW 14.7 11.0 - 15.0 % LAB HEMETOLOGY METHOD 04/08/2025 4:13 PM EDT [facility] Platelets 327 130 - 400 K/mcL LAB HEMETOLOGY METHOD 04/08/2025 4:13 PM [facility] MPV 9.0 7.0 - 11.0 FL LAB HEMETOLOGY METHOD 04/08/2025 4:13 PM [facility] NRBC 0.0 <1.0 % LAB HEMETOLOGY METHOD 04/08/2025 4:13 PM [facility] NRBC Absolute 0.00 <0.10 K/mcL LAB HEMETOLOGY METHOD 04/08/2025 4:13 PM [facility] Neutrophils Relative 60.8 % LAB HEMETOLOGY METHOD 04/08/2025 4:13 PM [facility] Lymphocytes Relative 30.6 % LAB HEMETOLOGY METHOD 04/08/2025 4:13 PM [facility] Monocytes Relative 7.4 % LAB HEMETOLOGY METHOD 04/08/2025 4:13 PM [facility] Eosinophils Relative 0.7 % LAB HEMETOLOGY METHOD 04/08/2025 4:13 PM [facility] Basophils Relative 0.3 % LAB HEMETOLOGY METHOD 04/08/2025 4:13 PM [facility] Immature Granulocytes Relative 0.2 % LAB HEMETOLOGY METHOD 04/08/2025 4:13 PM EDT [facility] Neutrophils Absolute 3.51 1.50 - 7.00 K/mcL LAB HEMETOLOGY METHOD 04/08/2025 4:13 PM EDT [facility] Lymphocytes Absolute 1.77 1.00 - 5.00 K/mcL LAB HEMETOLOGY METHOD 04/08/2025 4:13 PM EDT [facility] Monocytes Absolute 0.43 0.20 - 1.00 K/mcL LAB HEMETOLOGY METHOD 04/08/2025 4:13 PM EDT [facility] Eosinophils Absolute 0.04 0.00 - 0.50 K/mcL LAB HEMETOLOGY METHOD 04/08/2025 4:13 PM EDT [facility] Basophils Absolute 0.02 0.00 - 0.20 K/mcL LAB HEMETOLOGY METHOD 04/08/2025 4:13 PM EDT [facility] Immature Granulocytes Absolute 0.01 0.00 - 0.03 K/mcL LAB HEMETOLOGY METHOD 04/08/2025 4:13 PM EDT [facility] Blood Venous blood specimen / Unknown Venipuncture / Unknown 04/08/2025 3:48 PM EDT 04/08/2025 3:54 PM EDT us David Chavarria MD LAB BLOOD ORDERABLES Final Result [facility] [address] [place] [address], * (ABNORMAL) Prothrombin time with INR (04/08/2025 3:48 PM EDT) Protime 15.3(H) 10.6 - 13.9 sec LAB COAGULATION METHOD 04/08/2025 4:14 PM EDT [facility] INR 1.2 LAB COAGULATION METHOD 04/08/2025 4:14 PM EDT [facility] Blood Venous blood specimen / Unknown Venipuncture / Unknown 04/08/2025 3:48 PM EDT 04/08/2025 3:54 PM EDT David Chavarria MD LAB BLOOD ORDERABLES Final Result Performing Organization Address [facility]/ZIP Co de Phone Number [facility] [address] [place] [address], [place] [phone] * Magnesium (04/08/2025 3:48 PM EDT) Pathologist [facility] Magnesium 2.1 1.9 - 2.6 mg/dL LAB CHEMISTRY METHOD 04/08/2025 4:33 PM EDT [facility] Blood Venous blood specimen / Unknown Venipuncture / Unknown 04/08/2025 3:48 PM EDT 04/08/2025 3:54 PM EDT David Chavarria MD LAB BLOOD ORDERABLES Final Result Performing Organization Address [facility] Co de Phone Number [facility] [address] [place] [address], [place] [phone] * Lipase (04/08/2025 3:48 PM EDT) [facility] Lipase 30 13 - 75 unit/L LAB CHEMISTRY METHOD 04/08/2025 4:33 PM EDT [facility] Blood Venous blood specimen / Unknown Venipuncture / Unknown 04/08/2025 3:48 PM EDT 04/08/2025 3:54 PM EDT us David Chavarria MD LAB BLOOD ORDERABLES Final Result Performing Organization Address City/[facility]/ZIP Co de Phone Number [facility] [address] [place] [address], [place] [phone] * Comprehensive metabolic panel (04/08/2025 3:48 PM EDT) Sodium 142 133 - 145 mmol/L LAB CHEMISTRY METHOD 04/08/2025 4:33 PM [facility] Potassium 4.0 3.5 - 5.5 mmol/L LAB CHEMISTRY METHOD 04/08/2025 4:33 PM [facility] Chloride 109 96 - 110 mmol/L LAB CHEMISTRY METHOD 04/08/2025 4:33 PM [facility] CO2 27 21 - 32 mmol/L LAB CHEMISTRY METHOD 04/08/2025 4:33 PM [facility] Anion Gap 6 3 - 11 LAB CHEMISTRY METHOD 04/08/2025 4:33 PM [facility] Glucose 87 70 - 100 mg/dL LAB CHEMISTRY METHOD 04/08/2025 4:33 PM [facility] BUN 8 5 - 25 mg/dL LAB CHEMISTRY METHOD 04/08/2025 4:33 PM [facility] Creatinine 0.74 0.50 - 1.10 mg/dL LAB CHEMISTRY METHOD 04/08/2025 4:33 PM [facility] eGFR 95 >=60 mL/min/1. 73m2 LAB CHEMISTRY METHOD 04/08/2025 4:33 PM [facility] Comment:Calculation based on the Chronic Kidney Disease Epidemiology Collaboration (CKD-EPI) equation refit without adjustment for race. BUN/Creatinine Ratio 10.8 LAB CHEMISTRY METHOD 04/08/2025 4:33 PM [facility] Calcium 9.5 8.5 - 10.5 mg/dL LAB CHEMISTRY METHOD 04/08/2025 4:33 PM [facility] AST (SGOT) 14 10 - 42 unit/L LAB CHEMISTRY METHOD 04/08/2025 4:33 PM [facility] ALT (SGPT) 24 10 - 60 unit/L LAB CHEMISTRY METHOD 04/08/2025 4:33 PM [facility] Alkaline Phosphatase 87 42 - 121 unit/L LAB CHEMISTRY METHOD 04/08/2025 4:33 PM EDT [facility] Total Protein 7.1 6.0 - 8.0 g/dL LAB CHEMISTRY METHOD 04/08/2025 4:33 PM EDT [facility] Albumin 3.9 3.2 - 5.0 g/dL LAB CHEMISTRY METHOD 04/08/2025 4:33 PM EDT [facility] Total Bilirubin 0.8 0.0 - 1.4 mg/dL LAB CHEMISTRY METHOD 04/08/2025 4:33 PM EDT [facility] Blood Venous blood specimen / Unknown Venipuncture / Unknown 04/08/2025 3:48 PM EDT 04/08/2025 3:54 PM EDT David Chavarria MD LAB BLOOD ORDERABLES Final Result [facility] [address] [place] [address], [place] [phone] * (ABNORMAL) POC Urine Non-Auto W/O Micro (03/19/2025 10:39 AM EDT) GLUCOSE POC Negative Negative, Trace mg/dL Leukocytes UA POC 1+(A) Negative mg/dL Nitrite UA POC Negative Urobilinogen UA POC 0.2 E.U./dL mg/dL Protein UA POC Positive Positive, Negative PH UA POC 5.0 ISIDRA/HM UA POC Trace(A) Negative Specific [place] UA POC 1.015 Ketones UA POC Negative Negative Bilirubin UA POC Negative Negative Urine Urine specimen obtained by clean catch procedure / Unknown 03/19/2025 10:39 AM EDT Herb READ POINT OF CARE TEST ENTER/E DIT ORDERABLES Final Result * Lipid panel with reflex to direct LDL (01/14/2025 1:32 PM EDT) Cholesterol 183 0 - 200 mg/dL LAB CHEMISTRY METHOD 01/14/2025 7:40 PM EDT [facility] Triglycerides 81 0 - 150 mg/dL LAB CHEMISTRY METHOD 01/14/2025 7:40 PM EDT [facility] HDL 71 >=40 mg/dL LAB CHEMISTRY METHOD 01/14/2025 7:40 PM EDT [facility] LDL Calculated 96 0 - 100 mg/dL LAB CHEMISTRY METHOD 01/14/2025 7:40 PM EDT [facility] VLDL Cholesterol Evaristo 16.2 mg/dL LAB CHEMISTRY METHOD 01/14/2025 7:40 PM EDT [facility] Non HDL Chol. (LDL+VLDL) 112 <145 mg/dL LAB CHEMISTRY METHOD 01/14/2025 7:40 PM EDT [facility] Chol/HDL Ratio 2.6 0.0 - 4.4 LAB CHEMISTRY METHOD 01/14/2025 7:40 PM EDT [facility] Blood Venous blood specimen / Unknown Venipuncture / Unknown 01/14/2025 1:32 PM EDT 01/14/2025 1:33 PM EDT Antelmo Ruelas MD LAB BLOOD ORDERABLES Final Res ult [facility] [address] [place] [address], [place] [phone] * MG Mammo Digital Screening w Santy bilat (12/16/2024 5:36 PM EDT) Anatomical Region Laterality Modality Breast Bilateral Mammography 12/17/2024 5:12 PM EDT Impressions 12/17/2024 5:14 PM EDT No mammographic evidence of malignancy. BREAST DENSITY: B - There are scattered areas of fibroglandular density. BI-RADS CATEGORY: 1 - NEGATIVE RECOMMENDATION: Screening bilateral mammogram is recommended in 1 year. MAMMO LOCATION: [facility], [address], [place], [address], . -------- FINAL REPORT -------- Dictated By: Alison Chavarria Dictated Date: 12/17/2024 17:12 ET Assigned Physician: Alison Chavarria Reviewed and Electronically Signed By: Alison Chavarria Signed Date: 12/17/2024 17:14 ET Workstation ID: [id number] Transcribed By: Self Edit Transcribed Date: 12/17/2024 17:12 ET Narrative 12/17/2024 5:14 PM EDT EXAM: Screening Mammogram CLINICAL: 54 years old, Female, routine annual exam. COMPARISON: 04/16/2021 and 03/12/2020 TECHNIQUE: Bilateral MLO and CC views were obtained digitally with 3-D mammogram (digital breast tomosynthesis). Computer-aided detection was utilized in evaluation of this exam (CAD). FINDINGS: No new suspicious mass, architectural distortion, or suspicious calcifications. Procedure Note Alison Chavarria MD - 12/17/2024 EXAM: Screening Mammogram CLINICAL: 54 years old, Female, routine annual exam. COMPARISON: 04/16/2021 and 03/12/2020 TECHNIQUE: Bilateral MLO and CC views were obtained digitally with 3-Dmammogram (digital breast tomosynthesis). Computer-aided detection wasutilized in evaluation of this exam (CAD). FINDINGS: No new suspicious mass, architectural distortion, or suspiciouscalcifications. IMPRESSION: No mammographic evidence of malignancy. BREAST DENSITY: B - There are scattered areas of fibroglandular density. BI-RADS CATEGORY: 1 - NEGATIVE RECOMMENDATION: Screening bilateral mammogram is recommended in 1 year. MAMMO LOCATION: [facility], [address] [place] [address], [id number], . -------- FINAL REPORT -------- Dictated By: Alison Chavarria Dictated Date: 12/17/2024 17:12 ET Assigned Physician: Alison Chavarria Reviewed and Electronically Signed By: Alison Chavarria Signed Date: 12/17/2024 17:14 ET Workstation ID: [id number] Transcribed By: Self Edit Transcribed Date: 12/17/2024 17:12 ET us Antelmo Ruelas MD IMG BI PROCEDURES Final Result * Colonoscopy (03/23/2023) Colonoscopy no interpretation , abstracted Anatomical Region Laterality Modality Other Historical Provider HEALTH MAINTENANCE Final Result from Last 3 Months or Most Recently Relevant to Health Maintenance Insurance [facility] [employer] Advance Directives * Full Code - Default (Latest Code Status on File) Date Activated Date Inactivated Comments 10/09/2024 6:39 AM 10/10/2024 5:39 PM This is orde r is used when code status has not been discussed with the patient, or code status is otherwise unknown/unconfirmed To update the patient's code status, place a code status order. Do not modify or discontinue any currently active code status orders. Care Teams Circus Hand Relationship Specialty Start Date End Date Antelmo Ruelas MD [address] [place] [id number] PCP - General Internal Medicine 07/01/11
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
== END 2025-05-21 08:42 | disposition home or self-care (01) ==
LOC: HO.NEURO 08:41
DX: R20.0 Anesthesia of skin (principal); R20.2 Paresthesia of skin; R94.131 Abnormal electromyogram [EMG]
CPT/HCPCS: 95886; 95911

== ENCOUNTER → 2025-05-21 08:43 | Outpatient (BNV) | payer OTHER, SELFPAY | PROVIDERS: Visit Provider Physical Medicine & Rehabilitation | DX: G56.03 Carpal tunnel syndrome, bilateral upper limbs (principal); G62.89 Other specified polyneuropathies | CPT/HCPCS: 95886; 95911 ==

== ENCOUNTER 2025-07-07 09:55 | Outpatient (AMB) | payer OTHER, SELFPAY ==
--- NOTE | 2025-07-07 09:58 | A.OFFVIS_ITS ---
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 Patient reports symptoms began several months ago. Patient complains of left hand numbness and tingling with associated sleep disturbance. 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 She also complains of left small finger locking. Has tried braces but these worsen the pain. She has also tried using a ball. Denies any prior injuries or surgeries to the left hand. Patient is on Xarelto. IMPRESSION 05/21/25: 1. This is an abnormal study. 2. There is electrodiagnostic evidence for bilateral moderate-severe median neuropathy at the wrist, consistent with carpal tunnel syndrome. 3. There is no electrodiagnostic evidence for ulnar neuropathy, brachial plexopathy, or cervical radiculopathy. 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 Patient reports symptoms began several months ago. Patient complains of left hand numbness and tingling with associated sleep disturbance. 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 She also complains of left small finger locking. Has tried braces but these worsen the pain. She has also tried using a ball. Denies any prior injuries or surgeries to the left hand. Patient is on Xarelto. IMPRESSION 05/21/25: 1. This is an abnormal study. 2. There is electrodiagnostic evidence for bilateral moderate-severe median neur opathy at the wrist, consistent with carpal tunnel syndrome. 3. There is no electrodiagnostic evidence for ulnar neuropathy, brachial plexopathy, or cervical radiculopathy. [facility] Surgical History Hx of breast biopsy History of back surgery Hx of hysterectomy S/P laparoscopic sleeve gastrectomy Hx of laparoscopic gastric banding Hx of colonoscopy Family History Mother No problems noted. Father No problems noted. Sister No problems noted. Sister No problems noted. Son No problems noted. Son No problems noted. Son No problems noted. Daughter No problems noted. 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 Good APB muscle firing and good finger cross. Vascular: Capillary refill brisk. ROM: Patient can make a fist and extend all their digits. Skin: No lacerations or abrasions noted. General: No ecchymosis. No erythema or evidence of infection. Assessment & Plan Assessment & Plan (1) Carpal tunnel syndrome, bilateral: Code(s): G56.03 - Carpal tunnel syndrome, bilateral upper limbs Category: Medical Plan 1. Right carpal tunnel syndrome Symptoms intermittent, daily, worse at night I educated the patient about the condition. I discussed both operative and nonoperative treatment options. The patient would like to proceed with surgery. The risks and benefits of operative treatment were discussed with the patient and the patient wishes to proceed with surgery. These risks include, but are not limited to, risk of damage to blood vessels, nerves, tendons, infection, recurrence, incomplete relief of preoperative symptoms, persistent pain, possible need for further surgery, and the risks associated with regional blocks and/or anesthesia. Plan is to take the patient to the operating room at some point in the next few weeks for the following procedures: 1. Right carpal tunnel release under local anesthesia All of the preoperative paperwork including the consent was discussed today. All of the patient's questions were answered in the clinic today. The patient understands that they will be in contact with our surgical supplies sterilizer to discuss scheduling their procedure. Patient denies diabetes, asthma, heart issues, lung issues, kidney issues, or current smoking. Patient is on Xarelto, does not need to stop prior to surgery due to epinephrine in local numbing medication Coding Level of Care Code New Pt Level 4 (34781) Diagnoses Carpal tunnel syndrome, bilateral G56.03
[2025-07-07 09:59] VITALS: BMI 33.3
--- OUTSIDE RECORDS SUMMARY | 2025-07-07 11:33 | XMS_ITS ---
Author Organization [facility] Address [address] [place] [address] Phone Care Team Providers Care Vice Investigator Name Role Phone Antelmo Ruelas MD Primary Care Provider [phone] Active Problems Problem Noted Date Diagnosed Date DVT (deep venous thrombosis) ([facility], [facility]) 06/05/2025 S/P bariatric surgery 12/12/2024 History of recurrent deep vein thrombosis (DVT) 10/21/2024 Bilateral primary osteoarthritis of knee 025 Abdominal pain 10/16/2024 Phlebitis 10/16/2024 Class 2 severe obesity with serious comorbidity and body mass index (BMI) of 35.0 to 35.9 in adult 10/16/2024 Pulmonary embolism without a cute cor pulmonale (CMS/HCC V24, CMS/HCC V28) 07/25/2024 Hepatic steatosis 11/10/2022 History of COVID-19 09/14/2021 Obstructive sleep apnea 12/09/2020 Overview (07/01/2024): [facility] [place] Home Sleep Apnea Test: Date 12/02/2020; Wt [...] Knees Recurrent UTI 01/10/2012 Hyperlipidemia 09/15/2011 Current Treatment and Therapy Plans No current plan information found. Past Treatment and Therapy Plans No past plan information found. Lifetime Dose Tracking * Chemical Lifetime Dose Automatic Entry Manual Entr y Fluoro Time 2 minutes 2 minutes 0 minutes Air Kerma 86.82 mGy 86.82 mGy 0 mGy Dose Area Product 1,478.8 mGy-cm2 1,478.8 mGy-cm2 0 mG y-cm2
--- OUTSIDE RECORDS SUMMARY | 2025-07-07 11:33 | XMS_ITS | Clinical Summary ---
Author Organization [facility] Address [address] [place] [address] Phone Care Team Providers Care Inhalation Therapist Name Role Phone Antelmo Ruelas MD Primary Care Provider [phone] Allergies Active Allergy Reactions Criticality Noted Date [...] by mouth if needed for anxiety. Active losartan (COZAAR) 25 mg tablet Take 1 tablet (25 mg total) by mouth 1 (one) time each day. 90 tablet 1 4 Active albuterol HFA (PROAIR HFA ; PROVENTIL [...] mouth 1 (one) time each day. Active rivaroxaban (XARELTO) starter pack Take 1 tablet (15 mg) by mouth 2 (two) times a day with meals for 21 days. Then take 1 tablet (20 mg) by mouth 1 (one) time each day with dinner. 51 tablet 5 Active Active Problems Problem Noted Date Diagnosed Date DVT (deep venous thrombosis) ([facility] V24, [facility] V28) 06/05/2025 S/P bariatric surgery 12/12/2024 History of recurrent deep vein thrombosis (DVT) 10/21/2024 Bilateral primary osteoarthritis of knee 025 Abdominal pain 10/16/2024 Phlebitis 10/16/2024 Class 2 severe obesity with serious comorbidity and body mass index (BMI) of 35.0 to 35.9 in adult 10/16/2024 Pulmonary embolism without a cute cor pulmonale ([facility] V24, [facility] V28) 07/25/2024 Hepatic steatosis 11/10/2022 History of COVID-19 09/14/2021 Obstructive sleep apnea 12/09/2020 [place] (07/01/2024[place] [facility] [place] Apnea Test: Date 12/02/2020; Wt [...] Encounters Date Type Department Care Team Description 06/05/2025 12:18 PM EDT - 06/06/2025 3:04 PM EDT Hospital Encounter [facility] Urology [address] [place] [phone] Bobby Abrams MD Seralathan, Manikandan, MD Kela, Kashyap Devendrabhai, MD Chest pain, unspecified type (Primary Dx); Acute deep vein thrombosis (DVT) of proximal vein of right lower extremity (CMS/HCC V24, CMS/HCC V28); Acute deep vein thrombosis (DVT) of other specified vein of right lower extremity (CMS/HCC V24, CMS/HCC V28) Discharge Disposition: Home-Health Care [facility] [place] 06/04/2025 9:02 PM EDT - 06/04/2025 10:39 PM EDT Emergency [facility] Emergency [address] [place] [phone] Juan Ramon Tinsley MD Leg pain (Primary Dx); Acute deep vein thrombosis (DVT) of proximal vein of right lower extremity (CMS/HCC V24, CMS/HCC V28); History of DVT (deep vein thrombosis); Anticoagulant long-term use Discharge Disposition: Left Against Medical Advice 06/04/2025 2:00 PM EDT Office Visit [facility] [address] [place] [address] [phone] Antelmo Ruelas MD Right leg pain (Primary Dx); History of recurrent deep vein thrombosis (DVT) 06/04/2025 Telephone [facility] [address] [place] [address] [phone] Antelmo Ruelas MD 06/04/2025 Telephone [facility] [address] [place], [place] [address], [place] [phone] Antelmo Ruelas MD 05/14/2025 [facility] [address] [place] [address] Antelmo Ruelas MD 05/06/2025 Telephone Internal Medicine - [address] [phone] Antelmo Ruelas MD 04/24/2025 7:30 AM EDT Treatment [facility] Outpatient Rehabilitation [facility] [address] [phone] Richard Fernandez, TRAINING COORDINATOR Strain of right Achilles tendon, initial encounter (Primary Dx) 04/11/2025 Telephone Internal Medicine - [address] [phone] Antelmo Ruelas MD 04/08/2025 6:33 PM EDT - 04/08/2025 9:50 PM EDT Emergency [facility] Emergency [address] [place] [phone] Antelmo Montero MD Pain (Primary Dx); Hx of pulmonary embolus; Deep vein thrombosis (DVT) of right lower extremity, unspecified chronicity, unspecified vein ([facility] V24, [facility] V28) Discharge Disposition: Home or Self Care 04/08/2025 1:30 PM EDT Office Visit Internal Medicine - [address] [phone] Treva Bergman, LIN Acute pain of left shoulder (Primary Dx); Acute midline thoracic back pain; Left hand pain; Pulmonary embolism without acute cor pulmonale, unspecified chronicity, unspecified pulmonary embolism type ([facility] V24, [facility] V28) from Last 3 Months Immunizations Immunization Administration Dates Next Due Influenza Quadravalent, MDCK [...] Laminectomy UPPER GASTROINTESTINAL ENDOSCOPY 04/09/2003 Benjamin PROCEDURE: [facility] UPPER GI ENDOSCOPY PERFORMED; COMMENT: Antral gastritis; H. pylori treated with Prevpac UPPER GASTROINTESTINAL ENDOSCOPY 11/19/2012 PROCEDURE: [facility] UPPER GI ENDOSCOPY PERFORMED; COMMENT: lap band; [...] tubular adenoma OTHER SURGICAL HISTORY 12/07/2021 PROCEDURE: [facility] SLCTV CATH PLMT JOE SYS 1ST ORDER BRANCH OTHER SURGICAL HISTORY 12/07/2021 PROCEDURE: X-RAY EXAM OF TRUNK VEINS OTHER SURGICAL HISTORY 12/07/2021 PROCEDURE: [facility] INTRAVASCULAR US NONCORONARY RS&I INTIAL VESSEL OTHER SURGICAL HISTORY 12/07/2021 PROCEDURE: [facility] INTRAVASCULAR US NONCORONARY RS&I ADDL VESSEL OTHER [...] obesity wit h BMI of 40.0-44.9, adult ([facility]) GERD (gastroesophageal reflu x disease) 05/21/2013 DX:GERD [...] 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 Resection was a cure. NO potential for recurrance at that location. 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 No 06/04/2025 Food Access & Nutrition Answer Date Rec orded Do you have access to a vari ety of food including fruits and vegetables? Yes 06/04/2025 Access to Healthcare Answer Date Record ed Within the last 3 months, ho w many times did you visit the emergency department for your medical care? 3 06/04/2025 Health Literacy Answer Date Recorded How often do you need to hav e someone help you when you read instructions, pamphlets, or other written material from your doctor or pharmacy? Never 06/04/2025 Caregiver: How often do you need to have someone help you when you read instructions, pamphlets, or other written material from your doctor or pharmacy? Not on file 06/04/2025 Financial Risk Answer Date Recorded How hard is it for you to pa y for the very basics like food, housing, medical care, and air conditioning / heating? Somewhat hard 06/04/2025 Transportation Answer Date Recorded Has the lack of transportati on kept you from meetings, work, or from getting things needed for daily living? No Has the lack of transportati on kept you from medical appointments or from getting medications? No 06/04/2025 Social Isolation Answer Date Recorded How often do you feel lonely or isolated from those around you? Sometimes 06/04/2025 Food Risk Answer Date Recorded Within the past 12 months we worried whether our food would run out before we got money to buy more. Never true 06/04/2025 Within the past 12 months th e food we bought just didn't last and we didn't have money to get more. Never true 06/04/2025 Dependent Care Answer Date Recorded Do you need help finding or paying for care for your loved ones. For example, children's tutor nursery or elderly care for an older adult? No 06/04/2025 Education Answer Date Recorded Do you think completing more education or training, like finishing a GED, going to college, or learning a trade, would be helpful for you? Yes 06/04/2025 Employment and Income Answer Date Recor ded During the last four weeks, have you been actively looking for work? Yes 06/04/2025 Living Situation Answer Date Recorded What is your living situation? Unrecognized valu e 06/04/2025 Interpersonal Safety Answer Date Record ed Physical Abuse Unrecognized value 06/05/2025 Verbal Abuse Unrecognized value 06/05/2025 Comments No Sex and Gender Information Value [...] Sign Reading Time Taken Comments Blood Pressure 144/87 06/06/2025 8:58 AM EDT Pulse 50 06/06/2025 8:58 AM EDT Temperature 36.4 C (97.5 F) 06/06/2025 8:58 AM EDT Respiratory Rate 20 06/06/2025 8:58 AM EDT Oxygen Saturation 100% 06/06/2025 8:58 AM EDT Inhaled Oxygen Concentration - - Weight 99.8 kg (220 lb) 06/05/2025 1:47 PM EDT Height 170.2 cm (5' 7 ) 06/05/2025 11:11 AM EDT Body Mass Index 34.46 06/05/2025 11:11 AM EDT Plan of Treatment Upcoming Encounters Date Type Department Care Team (Late st Contact Info) Description 07/10/2025 8:15 AM EDT Office Visit Bariatric Surgery - [address] [place] [phone] Lucretia Shaw PA [address] [place] [phone] 12/22/2025 3:40 PM EDT Appointment Radiology Department [address] [phone] Health Maintenance Due Date Last Done Comments Hepatitis B Vaccines (1 of 3 - 19+ 3-dose series) 1987 Zoster Vaccines (1 of 2) 1987 Cervical Cancer Screening: Pap Smear 1989 Pneumococcal Vaccine: 50+ Years (2 of 2 - PCV) 05/11/2016 05/11/2015 RSV Immunization Adult Patients (1 - Risk 50-74 years 1-dose series) 2018 COVID-19 Vaccine (3 - Moderna risk series) 12/21/2020 11/23/2020, 10/26/2020 HIV Screening 08/20/2022 Hepatitis C Screening 08/20/2022 Influenza Vaccine (#1) 2025 , 06/21/2023, 06/23/2022, Additional history exists Social Influencers of Health Screening 06/04/2026 06/04/2025 Hypertension/CHF/CAD Annual BMP Blood Test 06/06/2026 06/06/2025, 06/05/2025, 04/08/2025, Additional history exists Breast Cancer Screening 12/16/2026 12/17/19, 04/16/2021, 03/12/2020, Additional history exists Colorectal Cancer Screening: Colonoscopy 03/23/2028 03/23/2023 Cholesterol Screening (Lipid Panel) 01/14/2030 01/14/2025, 10/23/2023 DTaP,Tdap,and Td Vaccines (4 - Td or Tdap) 06/21/2033 06/21/2023, 06/21/2022, 08/29/2011 Hepatitis A Vaccines Aged Out 01/02/2014 No long er eligible based on patient's age to complete this topic Depression Screening Completed 06/04/2025 HIB Vaccines Aged Out No longer eligi [...] Procedure Name Priority Date/Time Associated Diagnosis Comments ACTIVATED PARTIAL THROMBOPLASTIN TIME Timed 06/06/2025 8:32 AM EDT CBC WITH AUTO DIFFERENTIAL Routine 06/06/2025 8:32 AM EDT CBC AND DIFFERENTIAL Routine 06/06/2025 8:32 AM EDT BASIC METABOLIC PANEL Routine 06/06/2025 8:32 AM EDT ACTIVATED PARTIAL THROMBOPLASTIN TIME Routine 06/06/2025 2:38 AM EDT ACTIVATED PARTIAL THROMBOPLASTIN TIME Routine 06/06/2025 1:15 AM EDT ECG ANNOTATED 06/06/2025 ACTIVATED PARTIAL THROMBOPLASTIN TIME Routine 06/05/2025 10:47 PM EDT ACTIVATED PARTIAL THROMBOPLASTIN TIME Timed 06/05/2025 8:02 PM EDT HEPARIN AND LOW MOLECULAR WEIGHT ANTI XA LEVEL Timed 06/05/2025 8:02 PM EDT TROPONIN I HIGH SENSITIVITY Timed 06/05/2025 8:[address] ANGIO CHEST WO AND/OR W CONTRAST STAT 06/05/2025 3:25 PM EDT Chest pain, unspecified type ACTIVATED PARTIAL THROMBOPLASTIN TIME STAT Add-on 06/05/2025 1:45 PM EDT HEPARIN AND LOW MOLECULAR WEIGHT ANTI XA LEVEL STAT Add-on 06/05/2025 1:45 PM EDT CBC WITH AUTO DIFFERENTIAL STAT 06/05/2025 1:45 PM EDT TYPE AND SCREEN STAT 06/05/2025 1:45 PM EDT PROTHROMBIN TIME WITH INR STAT 06/05/2025 1:45 PM EDT B-TYPE NATRIURETIC PEPTIDE STAT 06/05/2025 1:45 PM EDT LIPASE STAT 06/05/2025 1:45 PM EDT COMPREHENSIVE METABOLIC PANEL STAT 06/05/2025 1:45 PM EDT CBC AND DIFFERENTIAL STAT 06/05/2025 1:45 PM EDT TROPONIN I HIGH SENSITIVITY Timed 06/05/2025 1:45 PM EDT ECG 12-LEAD STAT 06/05/2025 1:43 PM EDT [facility] 30-74 MINUTES Routine 06/05/2025 10:56 AM EDT VAS US DUPLEX LOWER EXT VENOUS RIGHT STAT 06/04/2025 7:38 PM EDT Leg pain VAS US DUPLEX IVC COMPLETE Routine 05/30/2025 10:30 AM EDT URINALYSIS MICROSCOPIC ONLY Routine 05/07/2025 1:09 PM [...] AND DIFFERENTIAL STAT 04/08/2025 3:48 PM EDT LIPID PANEL WITH REFLEX TO DIRECT LDL Routine 01/14/2025 1:32 PM EDT Essential hypertension MG MAMMO DIGITAL SCREENING W SANTY BILAT Routine 12/16/2024 5:36 PM EDT Screening mammogram for breast cancer HM COLONOSCOPY Routine 03/23/2023 from Last 3 Months or Most Recently Relevant to Health Maintenance Results * (ABNORMAL) CBC auto differential (06/06/2025 8:32 AM EDT) Only the most recent of3 resultswithin the time period is included. WBC 4.2(L) 4.8 - 10.8 K/[facility] LAB HEMETOLOGY METHOD 06/06/2025 9:12 AM EDT [facility] RBC 3.70(L) 3.80 - 4.80 M/mcL LAB HEMETOLOGY METHOD 06/06/2025 9:12 AM [facility] Hemoglobin 11.0(L) 11.5 - 16.0 g/dL LAB HEMETOLOGY METHOD 06/06/2025 9:12 AM [facility] Hematocrit 34.0(L) 35.0 - 47.0 % LAB HEMETOLOGY METHOD 06/06/2025 9:12 AM [facility] MCV 92.9 79.0 - 98.0 FL LAB HEMETOLOGY METHOD 06/06/2025 9:12 AM [facility] MCH 30.1 27.0 - 32.0 pcg LAB HEMETOLOGY METHOD 06/06/2025 9:12 AM [facility] MCHC 32.4 32.0 - 37.0 g/dL LAB HEMETOLOGY METHOD 06/06/2025 9:12 AM [facility] RDW 15.4(H) 11.0 - 15.0 % LAB HEMETOLOGY METHOD 06/06/2025 9:12 AM [facility] Platelets 277 130 - 400 K/mcL LAB HEMETOLOGY METHOD 06/06/2025 9:12 AM [facility] MPV 9.4 7.0 - 11.0 FL LAB HEMETOLOGY METHOD 06/06/2025 9:12 AM [facility] NRBC 0.0 <1.0 % LAB HEMETOLOGY METHOD 06/06/2025 9:12 AM [facility] NRBC Absolute 0.00 <0.10 K/mcL LAB HEMETOLOGY METHOD 06/06/2025 9:12 AM [facility] Neutrophils Relative 49.6 % LAB HEMETOLOGY METHOD 06/06/2025 9:12 AM [facility] Lymphocytes Relative 40.9 % LAB HEMETOLOGY METHOD 06/06/2025 9:12 AM [facility] Monocytes Relative 6.7 % LAB HEMETOLOGY METHOD 06/06/2025 9:12 AM [facility] Eosinophils Relative 2.6 % LAB HEMETOLOGY METHOD 06/06/2025 9:12 AM [facility] Basophils Relative 0.2 % LAB HEMETOLOGY METHOD 06/06/2025 9:12 AM [facility] Immature Granulocytes Relative 0.0 % LAB HEMETOLOGY METHOD 06/06/2025 9:12 AM [facility] Neutrophils Absolute 2.07 1.50 - 7.00 K/mcL LAB HEMETOLOGY METHOD 06/06/2025 9:12 AM [facility] Lymphocytes Absolute 1.71 1.00 - 5.00 K/mcL LAB HEMETOLOGY METHOD 06/06/2025 9:12 AM [facility] Monocytes Absolute 0.28 0.20 - 1.00 K/mcL LAB HEMETOLOGY METHOD 06/06/2025 9:12 AM [facility] Eosinophils Absolute 0.11 0.00 - 0.50 K/mcL LAB HEMETOLOGY METHOD 06/06/2025 9:12 AM [facility] Basophils Absolute 0.01 0.00 - 0.20 K/mcL LAB HEMETOLOGY METHOD 06/06/2025 9:12 AM [facility] Immature Granulocytes Absolute 0.00 0.00 - 0.03 K/mcL LAB HEMETOLOGY METHOD 06/06/2025 9:12 AM [facility] Blood Venous blood specimen / Unknown Venipuncture / Unknown 06/06/2025 8:32 AM EDT 06/06/2025 9:06 AM EDT us Sarah READ LAB BLOOD ORDERABLES Fi nal Result Performing Organization Address [facility]/ZIP Co de Phone Number [facility] [address] [place] [address], [place] [phone] * (ABNORMAL) Activated Partial Thromboplastin Time - Every 6 Hours (06/06/2025 8:32 AM EDT) Only the most recent of6 resultswithin the time period is included. [facility] aPTT 86.2(H) 24.1 - 39.3 sec LAB COAGULATION METHOD 06/06/2025 9:38 AM EDT [facility] Blood Venous blood specimen / Unknown Venipuncture / Unknown 06/06/2025 8:32 AM EDT 06/06/2025 9:06 AM EDT Bulmaro Al MD LAB BLOOD ORDERABLES Fi nal Result Performing Organization Address [facility]/ZIP Co de Phone Number [facility] [address] [place] [address], [place] [phone] * (ABNORMAL) Basic metabolic panel (06/06/2025 8:32 AM EDT) [facility] Sodium 142 133 - 145 mmol/L LAB CHEMISTRY METHOD 06/06/2025 9:50 AM EDT [facility] Potassium 4.2 3.5 - 5.5 mmol/L LAB CHEMISTRY METHOD 06/06/2025 9:50 AM EDT [facility] Chloride 112(H) 96 - 110 mmol/L LAB CHEMISTRY METHOD 06/06/2025 9:50 AM EDT [facility] CO2 27 21 - 32 mmol/L LAB CHEMISTRY METHOD 06/06/2025 9:50 AM EDT [facility] Anion Gap 3 3 - 11 LAB CHEMISTRY METHOD 06/06/2025 9:50 AM EDT [facility] Glucose 80 70 - 100 mg/dL LAB CHEMISTRY METHOD 06/06/2025 9:50 AM EDT [facility] BUN 9 5 - 25 mg/dL LAB CHEMISTRY METHOD 06/06/2025 9:50 AM EDT [facility] Creatinine 0.49(L) 0.50 - 1.10 mg/dL LAB CHEMISTRY METHOD 06/06/2025 9:50 AM EDT [facility] eGFR 111 >=60 mL/min/1. 73m2 LAB CHEMISTRY METHOD 06/06/2025 9:50 AM EDT [facility] Comment:Calculation based on the Chronic Kidney Disease Epidemiology Collaboration (CKD-EPI) equation refit without adjustment for race. BUN/Creatinine Ratio 18.4 LAB CHEMISTRY METHOD 06/06/2025 9:50 AM EDT [facility] Calcium 9.0 8.5 - 10.5 mg/dL LAB CHEMISTRY METHOD 06/06/2025 9:50 AM EDT [facility] Blood Venous blood specimen / Unknown Venipuncture / Unknown 06/06/2025 8:32 AM EDT 06/06/2025 9:06 AM EDT Sarah READ LAB BLOOD ORDERABLES Fi nal Result [facility] [address] [place] [address], * ECG-Annotated (06/06/2025) Only the most recent of2 resultswithin the time period is included. us Provider Onbase MD ECG ORDERABLES Final Result * Troponin I high sensitivity (06/05/2025 8:02 PM EDT) Only the most recent of3 resultswithin the time period is included. High Sensitivity Troponin I 3 <=54 ng/L LAB CHEMISTRY METHOD 06/05/2025 9:41 PM EDT [facility] Blood Venous blood specimen / Unknown Venipuncture / Unknown 06/05/2025 8:02 PM EDT 06/05/2025 8:31 PM EDT [facility] - 06/05/2025 9:41 PM EDT High levels of biotin in samples may falsely decrease hsTroponin values. Use caution when interpreting hsTroponin results in patients taking biotin who exhibit renal impairment (eGFR <60) or in patients taking more than 20 mg/day of biotin. us Bobby Abrams MD LAB BLOOD ORDERABLES Final Resul t Performing Organization Address [facility]/ZIP Co de Phone Number [facility] [address] [place] [address], [place] [phone] * (ABNORMAL) Anti-Xa - Every 6 Hours (06/05/2025 8:02 PM EDT) Only the most recent of2 resultswithin the time period is included. Heparin Anti-Xa 1.25(H) 0.30 - 0.70 I Unit/mL LAB COAGULATION METHOD 06/05/2025 9:16 PM EDT [facility] Blood Venous blood specimen / Unknown Venipuncture / Unknown 06/05/2025 8:02 PM EDT 06/05/2025 8:31 PM EDT [facility] - 06/05/2025 9:16 PM EDT Therapeutic range listed is for Unfractionated Heparin. LMW Heparin therapeutic range: 0.50-1.20 IU/mL us Bobby Abrams MD LAB BLOOD ORDERABLES Final Resul t Performing Organization Address [facility]/ZIP Co de Phone Number [facility] [address] [place] [address], [place] [phone] * CT Angio Chest wo and/or w Contrast (06/05/2025 3:25 PM EDT) Only the most recent of2 resultswithin the time period is included. Anatomical Region Laterality Modality Body Computed Tomogra phy 06/05/2025 3:47 PM EDT Impressions 06/05/2025 3:59 PM EDT 1. No CT evidence of acute pulmonary embolism to the lobar level. Evaluation of the segmental and subsegmental pulmonary arteries is limited due to motion artifact and small peripheral pulmonary emboli cannot be excluded. 2. 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 3. Cardiomegaly. 4. Gastric bypass. Formed stool in the proximal jejunum distal to the GJ anastomosis which could be related to stasis. Stool in the splenic flexure. -------- FINAL REPORT -------- Dictated By: Cash Rivera Dictated Date: 06/05/2025 15:47 ET Assigned Physician: Cash Rivera Reviewed and Electronically Signed By: Cash Rivera Signed Date: 06/05/2025 15:59 ET Workstation ID: [id number] Transcribed By: Self Edit Transcribed Date: 06/05/2025 15:47 ET Narrative 06/05/2025 3:59 PM EDT PROCEDURE: CT ANGIO CHEST INDICATION: PE suspected, high prob COMPARISON: None. TECHNIQUE: CT pulmonary angiogram performed following uneventful IV administration of ISOVUE contrast material with bolus timing technique from the thoracic inlet through the lung bases. 3-D multiplanar reformations were obtained by the technologist on an independent workstation. [employer] VCT dose reduction utilizing iterative reconstruction. Total exam DLP 409 (mGy-cm) FINDINGS: There is no CT evidence of acute pulmonary embolism to the lobar level. Evaluation of the segmental and subsegmental pulmonary arteries is limited due to motion artifact and small peripheral pulmonary emboli cannot be excluded. 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 Cardiomegaly. The thoracic aorta is normal in caliber. There is no evidence for mediastinal or hilar lymphadenopathy. No concerning opacity. There are no pleural effusions. Small hiatal hernia. Gastric bypass. Formed stool in the proximal jejunum distal to the GJ anastomosis which could be related to stasis. Stool in the splenic flexure. Low-attenuation lesions in the liver. The included skeletal structures are within normal limits for technique. Procedure Note Cash Rivera MD - 06/05/2025 PROCEDURE: CT ANGIO CHEST INDICATION: PE suspected, high prob COMPARISON: None. TECHNIQUE: CT pulmonary angiogram performed following uneventful IVadministration of ISOVUE contrast material with bolus timing techniquefrom the thoracic inlet through the lung bases. 3-D multiplanar reformations were obtained by the technologist on anindependent workstation. [employer] VCT dose reduction utilizing iterative reconstruction. Total exam DLP 409 (mGy-cm) FINDINGS: There is no CT evidence of acute pulmonary embolism to the lobar level.Evaluation of the segmental and subsegmental pulmonary arteries is limiteddue to motion artifact and small peripheral pulmonary emboli cannot beexcluded. 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 Cardiomegaly. The thoracic aorta is normal in caliber. There is no evidence for mediastinal or hilar lymphadenopathy. No concerning opacity. There are no pleural effusions. Small hiatal hernia. Gastric bypass. Formed stool in the proximaljejunum distal to the GJ anastomosis which could be related to stasis.Stool in the splenic flexure. Low-attenuation lesions in the liver. The included skeletal structures are within normal limits for technique. IMPRESSION: 1. No CT evidence of acute pulmonary embolism to the lobar level.Evaluation of the segmental and subsegmental pulmonary arteries is limiteddue to motion artifact and small peripheral pulmonary emboli cannot beexcluded. 2. 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 3. Cardiomegaly. 4. Gastric bypass. Formed stool in the proximal jejunum distal to the GJanastomosis which could be related to stasis. Stool in the splenicflexure. -------- FINAL REPORT -------- Dictated By: Cash Rivera Dictated Date: 06/05/2025 15:47 ET Assigned Physician: Cash Rivera Reviewed and Electronically Signed By: Cash Rivera Signed Date: 06/05/2025 15:59 ET Workstation ID: [id number] Transcribed By: Self Edit Transcribed Date: 06/05/2025 15:47 ET Bobby Abrams MD [facility] PROCEDURES Final Result * Protime-INR (06/05/2025 1:45 PM EDT) Only the most recent of2 resultswithin the time period is included. Protime 12.0 10.6 - 13.9 sec LAB COAGULATION METHOD 06/05/2025 2:34 PM EDT [facility] INR 1.0 LAB COAGULATION METHOD 06/05/2025 2:34 PM EDT [facility] Blood Venous blood specimen / Unknown Venipuncture / Unknown 06/05/2025 1:45 PM EDT 06/05/2025 1:58 PM EDT us Bobby Abrams MD LAB BLOOD ORDERABLES Final Resul t Performing Organization Address [facility]/ZIP Co de Phone Number [facility] [address] [place] [address], [place] [phone] * Type and screen (06/05/2025 1:45 PM EDT) ABO Group B 06/05/2025 3:12 PM EDT [facility] Rh Type Positive 06/05/2025 3:12 PM EDT [facility] Antibody Screen Negative 06/05/2025 3:12 PM EDT [facility] Blood Venous blood specimen / Unknown Venipuncture / Unknown 06/05/2025 1:45 PM EDT 06/05/2025 1:59 PM EDT us Bobby Abrams MD LAB BLOOD BANK TEST ORDERABLES F inal Result Performing Organization Address City/[facility]/ZIP Co de Phone Number [facility] [address] [place] [address], [place] [phone] * B-type natriuretic peptide (06/05/2025 1:45 PM EDT) BNP 92 <=100 pcg/mL LAB CHEMISTRY METHOD 06/05/2025 2:38 PM EDT [facility] Blood Venous blood specimen / Unknown Venipuncture / Unknown 06/05/2025 1:45 PM EDT 06/05/2025 1:58 PM EDT us Bobby Abrams MD LAB BLOOD ORDERABLES Final Resul t Performing Organization Address City/[facility]/ZIP Co de Phone Number [facility] [address] [place] [address], [place] [phone] * Lipase (06/05/2025 1:45 PM EDT) Only the most recent of2 resultswithin the time period is included. Lipase 30 13 - 75 unit/L LAB CHEMISTRY METHOD 06/05/2025 2:26 PM EDT [facility] Blood Venous blood specimen / Unknown Venipuncture / Unknown 06/05/2025 1:45 PM EDT 06/05/2025 1:58 PM EDT us Bobby Abrams MD LAB BLOOD ORDERABLES Final Resul t Performing Organization Address [facility] de Phone Number [facility] [address] [place] [address], [place] [phone] * (ABNORMAL) Comprehensive metabolic panel (06/05/2025 1:45 PM EDT) Only the most recent of2 resultswithin the time period is included. Pathologist [facility] [place] Sodium 144 133 - 145 mmol/L LAB CHEMISTRY METHOD 06/05/2025 2:27 PM EDT [facility] Potassium 4.0 3.5 - 5.5 mmol/L LAB CHEMISTRY METHOD 06/05/2025 2:27 PM EDT [facility] Chloride 112(H) 96 - 110 mmol/L LAB CHEMISTRY METHOD 06/05/2025 2:27 PM EDT [facility] CO2 26 21 - 32 mmol/L LAB CHEMISTRY METHOD 06/05/2025 2:27 PM EDT [facility] Anion Gap 6 3 - 11 LAB CHEMISTRY METHOD 06/05/2025 2:27 PM EDT [facility] Glucose 85 70 - 100 mg/dL LAB CHEMISTRY METHOD 06/05/2025 2:27 PM [facility] BUN 13 5 - 25 mg/dL LAB CHEMISTRY METHOD 06/05/2025 2:27 PM [facility] Creatinine 0.71 0.50 - 1.10 mg/dL LAB CHEMISTRY METHOD 06/05/2025 2:27 PM [facility] eGFR 100 >=60 mL/min/1. 73m2 LAB CHEMISTRY METHOD 06/05/2025 2:27 PM [facility] Comment:Calculation based on the Chronic Kidney Disease Epidemiology Collaboration (CKD-EPI) equation refit without adjustment for race. BUN/Creatinine Ratio 18.3 LAB CHEMISTRY METHOD 06/05/2025 2:27 PM [facility] Calcium 9.0 8.5 - 10.5 mg/dL LAB CHEMISTRY METHOD 06/05/2025 2:27 PM [facility] AST (SGOT) 24 10 - 42 unit/L LAB CHEMISTRY METHOD 06/05/2025 2:27 PM [facility] ALT (SGPT) 33 10 - 60 unit/L LAB CHEMISTRY METHOD 06/05/2025 2:27 PM [facility] Alkaline Phosphatase 83 42 - 121 unit/L LAB CHEMISTRY METHOD 06/05/2025 2:27 PM [facility] Total Protein 6.6 6.0 - 8.0 g/dL LAB CHEMISTRY METHOD 06/05/2025 2:27 PM [facility] Albumin 3.5 3.2 - 5.0 g/dL LAB CHEMISTRY METHOD 06/05/2025 2:27 PM [facility] Total Bilirubin 0.5 0.0 - 1.4 mg/dL LAB CHEMISTRY METHOD 06/05/2025 2:27 PM [facility] Blood Venous blood specimen / Unknown Venipuncture / Unknown 06/05/2025 1:45 PM EDT 06/05/2025 1:58 PM EDT Bobby Abrams MD LAB BLOOD ORDERABLES Final Resul t Performing Organization Address City/[facility]/ZIP Co de Phone Number [place] [facility] [address] [place] [address], [place] [phone] * ECG 12 lead (06/05/2025 1:43 PM EDT) Only the most recent of2 resultswithin the time period is included. Ventricular Rate ECG 57 BPM [facility] Atrial Rate 57 BPM [facility] P-R Interval 190 ms [facility] QRS Duration 80 ms [facility] Q-T Interval 454 ms GEM[facility] QTc 441 ms GEMUSE P Wave [place] 49 degrees GEMUSE R [place] 49 degrees GEMUSE T [place] 50 degrees GEMUSE ECG Interpretation Sinus bradycardia Otherwise normal ECG When compared with ECG of 08-APR-2025 19:01, T wave amplitude has decreased in Anterior leads Confirmed by Parisa FAROOQ JOHN ([id number]) on 06/05/2025 3:45:31 PM [facility] 06/05/2025 1:43 PM EDT 06/05/2025 3:45 PM EDT Bobby Abrams MD ECG ORDERABLES Final Result Performing Organization Address City/[facility] Co de Phone Number [facility] * [facility] 30-74 MINUTES (06/05/2025 10:56 AM EDT) Narrative Bobby Abrams MD - 06/05/2025 10:56 AM EDT Bobby Abrams MD 06/05/2025 5:04 PM Critical Care Performed by: Bobby Abrams MD Authorized by: Bobby Abrams MD Critical care provider statement: Critical care time (minutes): 36 Total face to face critical care time (minutes): 36 Critical care time was exclusive of: Separately billable procedures and treating other patients Critical care was necessary to treat or prevent imminent or life-threatening deterioration of the following conditions: Circulatory failure Critical care was time spent personally by me on the following activities: Development of treatment plan with patient or surrogate, discussions with consultants, evaluation of patient's response to treatment, ordering and review of laboratory studies, ordering and review of radiographic studies, re-evaluation of patient's condition, review of old charts, ordering and performing treatments and interventions and examination of patient Face to face critical care was time spent personally by me on the following activities: Examination of patient, ordering and review of laboratory studies, ordering and review of radiographic studies, pulse oximetry and obtaining history from patient or surrogate I assumed direction of critical care for this patient from another provider in my specialty: no Care discussed with: admitting provider Comments: DVT refractory Xarelto requiring IV heparin us Bobby Abarms MD IN CLINIC/BEDSIDE ORDERABLES Fin al Result * Vascular US duplex lower extremity venous right (06/04/2025 7:38 PM EDT) Only the most recent of2 resultswithin the time period is included. Anatomical Region Laterality Modality Vascular, Abdomen Ultrasound 06/04/2025 8:05 PM EDT Addenda Addendum by Madyson Reynolds MD on 06/04/2025 8:09 PM EDT ADDENDUM: This report was discussed with Dr. Lucretia Wellington on Jun 04, 2025 20:09:00 EDT. This document has been electronically signed by: Susan Nicholson on 06/04/2025 20:09:20 Impressions 06/04/2025 8:05 PM EDT Impression: 1. Positive study for acute occlusive DVT within the right gastrocnemius vein and a nonocclusive DVT within the proximal right peroneal vein. 2. Previously seen nonocclusive thrombus in the popliteal vein has resolved. This document has been electronically signed by: Madyson Reynolds MD on 06/04/2025 20:05:15 Narrative 06/04/2025 8:05 PM EDT INDICATION: pain Exam: Right lower extremity venous Doppler ultrasound Comparison: 04/08/2025 Clinical History: Pain Findings: Right lower extremity venous Doppler examination was performed. Selected images from the procedure are provided for interpretation. Right lower extremity: Prior study had demonstrated nonocclusive thrombus in the popliteal vein and gastrocnemius vein. The popliteal vein thrombus appears to have resolved. Acute occlusive DVT within the right gastrocnemius vein. Nonocclusive DVT seen within the proximal peroneal vein. Remaining veins in the right lower extremity are patent without thrombosis. Procedure Note Madyson Reynolds MD - 06/04/2025 INDICATION: pain Exam: Right lower extremity venous Doppler ultrasound Comparison: 04/08/2025 Clinical History: Pain Findings: Right lower extremity venous Doppler examination was performed. Selected images from the procedure are provided for interpretation. Right lower extremity: Prior study had demonstrated nonocclusive thrombus in the popliteal vein and gastrocnemius vein. The popliteal vein thrombus appears to have resolved. Acute occlusive DVT within the right gastrocnemius vein. Nonocclusive DVT seen within the proximal peroneal vein. Remaining veins in the right lower extremity are patent without thrombosis. IMPRESSION: Impression: 1. Positive study for acute occlusive DVT within the right gastrocnemius vein and a nonocclusive DVT within the proximal right peroneal vein. 2. Previously seen nonocclusive thrombus in the popliteal vein has resolved. This document has been electronically signed by: Madyson Reynolds MD on 06/04/2025 20:05:15 Poly READ CV VASCULAR PROCEDURES Edited Result - Final * Vascular US duplex IVC complete (05/30/2025 10:30 AM EDT) Anatomical Region Laterality Modality Vascular, Abdomen Ultrasound Historical Provider CV VASCULAR PROCEDURES Fi nal Result * (ABNORMAL) Urinalysis microscopic only (05/07/2025 1:09 PM EDT) RBC, Urine 3.7 0 - 4 /HPF LAB URINALYSIS - AUTOMATED METHOD 05/07/2025 3:06 PM EDT [facility] WBC, Urine 8.4(H) 0 - 4 /HPF LAB URINALYSIS - AUTOMATED METHOD 05/07/2025 3:06 PM EDT [facility] Squamous Epithelial, Urine 19 0 - 60 /LPF LAB URINALYSIS - AUTOMATED METHOD 05/07/2025 3:06 PM EDT [facility] Bacteria, Urine Many(A) Negative /HPF LAB URINALYSIS - AUTOMATED METHOD 05/07/2025 3:06 PM EDT [facility] Hyaline Casts, Urine 0.8 0 - 3 /LPF LAB URINALYSIS - AUTOMATED METHOD 05/07/2025 3:06 PM EDT [facility] Urine Urine specimen obtained by clean catch procedure / Unknown Non-blood Collection / Unknown 05/07/2025 1:09 PM EDT 05/07/2025 1:09 PM EDT us Naresh Scott MD LAB URINE ORDERABLES Final Resul t [facility] [address] [place] [address], * (ABNORMAL) Culture urine (05/07/2025 1:09 PM EDT) Culture, Urine >=100,000 CFU/mL Escherichia coli(A) KYRSTAL 05/09/2025 10:37 AM EDT [facility] Urine Urine specimen obtained by [...] KRYSTAL <=16 ug/ml: Susceptible Escherichia coli Trimethoprim/Sulfamethoxazole RKYSTAL <=20 ug/ml: Susceptible Naresh Scott MD LAB MICROBIOLOGY - GENERAL ORDER SHAW Final Result Performing Organization Address [facility]/ZIP Co de Phone Number [facility] [address] [place] [address], [place] [phone] * Magnesium (04/08/2025 3:48 PM EDT) [facility] Magnesium 2.1 1.9 - 2.6 mg/dL LAB CHEMISTRY METHOD 04/08/2025 4:33 PM EDT [facility] Blood Venous blood specimen / Unknown Venipuncture / Unknown 04/08/2025 3:48 PM EDT 04/08/2025 3:54 PM EDT David Chavarria MD LAB BLOOD ORDERABLES Final Result Performing Organization Address [facility]/ZIP Co de Phone Number [facility] [address] [place] [address], [place] [phone] * Lipid panel with reflex to direct LDL (01/14/2025 1:32 PM EDT) Cholesterol 183 0 - 200 mg/dL LAB CHEMISTRY METHOD 01/14/2025 7:40 PM EDT [facility] Triglycerides 81 0 - 150 mg/dL LAB CHEMISTRY METHOD 01/14/2025 7:40 PM EDT [facility] HDL 71 >=40 mg/dL LAB CHEMISTRY METHOD 01/14/2025 7:40 PM EDT [facility] LDL Calculated 96 0 - 100 mg/dL LAB CHEMISTRY METHOD 01/14/2025 7:40 PM EDT [facility] VLDL Cholesterol Evaristo 16.2 mg/dL LAB CHEMISTRY METHOD 01/14/2025 7:40 PM EDT [facility] Non HDL Chol. (LDL+VLDL) 112 <145 mg/dL LAB CHEMISTRY METHOD 01/14/2025 7:40 PM EDT [facility] Chol/HDL Ratio 2.6 0.0 - 4.4 LAB CHEMISTRY METHOD 01/14/2025 7:40 PM EDT [facility] Blood Venous blood specimen / Unknown Venipuncture / Unknown 01/14/2025 1:32 PM EDT 01/14/2025 1:33 PM EDT us Antelmo Ruelas MD LAB BLOOD ORDERABLES Final Res ult [facility] [address] [place] [address], [place] [phone] * MG Mammo Digital Screening w Santy bilat (12/16/2024 5:36 PM EDT) Anatomical Region Laterality Modality Breast Bilateral Mammography 12/17/2024 5:12 PM EDT Impressions 12/17/2024 5:14 PM EDT No mammographic evidence of malignancy. BREAST DENSITY: B - There are scattered areas of fibroglandular density. BI-RADS CATEGORY: 1 - NEGATIVE RECOMMENDATION: Screening bilateral mammogram is recommended in 1 year. MAMMO LOCATION: [facility], [address] [place] [address], [id number], . -------- FINAL REPORT -------- Dictated By: Alison Chavarria Dictated Date: 12/17/2024 17:12 ET Assigned Physician: Alison Chavarria Reviewed and Electronically Signed By: Alison Chavarria Signed Date: 12/17/2024 17:14 ET Workstation ID: [id number] Transcribed By: Self Edit Transcribed Date: 12/17/2024 [...] is recommended in 1 year. MAMMO LOCATION: [facility], [address] [place] [address], [phone], . -------- FINAL REPORT -------- Dictated By: Alison Chavarria Dictated Date: 12/17/2024 17:12 ET Assigned Physician: Alison Chavarria Reviewed and Electronically Signed By: Alison Chavarria Signed Date: 12/17/2024 17:14 ET Workstation ID: [id number] Transcribed By: Self Edit Transcribed Date: 12/17/2024 17:12 ET Antelmo Ruelas MD IMG BI PROCEDURES Final Result * Colonoscopy (03/23/2023) Colonoscopy no interpretation , abstracted Anatomical Region Laterality Modality Other Historical Provider HEALTH MAINTENANCE Final Result from Last 3 Months or Most Recently Relevant to Health Maintenance Insurance [facility] Advance Directives * Full Code - Default (Latest Code Status on File) Date Activated Date Inactivated Comments 06/05/2025 7:37 PM 06/06/2025 6:02 PM This is orde r is used when code status has not been discussed with the patient, or code status is otherwise unknown/unconfirmed To update the patient's code status, place a code status order. Do not modify or discontinue any currently active code status orders. * Full Code - Default Date Activated Date Inactivated Comments 10/09/2024 6:39 AM 10/10/2024 5:39 PM This is orde r is used when code status has not been discussed with the patient, or code status is otherwise unknown/unconfirmed To update the patient's code status, place a code status order. Do not modify or discontinue any currently active code status orders. Care Teams Inhalation Therapist Relationship Specialty Start Date End Date Antelmo Ruelas MD [address] [place] [id number] PCP - General Internal Medicine 07/01/11
--- OUTSIDE RECORDS SUMMARY | 2025-07-07 11:33 | XMS_ITS ---
Author Name [facility] Organization Unknown History of Medication Use Medication Directions Dispensed Refills Start Date End Date Stat us ursodioL (ACTIGALL) 300 mg capsule Take 1 capsule (300 mg total) by mouth 2 (two) times a day. 10/14/2024 active HYDROmorphone (DILAUDID) 2 mg tablet Take 1 tablet (2 mg total) by mouth every 4 (four) hours if needed for moderate pain. Max Daily Amount: 12 mg 10/10/2024 active albuterol HFA (PROAIR HFA ; PROVENTIL HFA ; VENTOLIN HFA) 90 mcg/actuation inhaler Inhale 2 puffs by mouth every 4 (four) hours if needed for wheezing. Inhale 2 Puffs into the lungs every 4 hours as needed for Cough or Wheezing. - Inhalation 08/21/2024 active losartan (COZAAR) 25 mg tablet Take 1 tablet (25 mg total) by mouth 1 (one) time each day. 07/25/2024 active pantoprazole (PROTONIX) 40 mg EC tablet Take 1 tablet (40 mg total) by mouth 1 (one) time each day. 03/06/2024 active fluticasone propionate (FLONASE) 50 mcg/actuation nasal spray INHALE 2 SPRAYS BY NASAL ROUTE DAILY 03/22/2022 active cetirizine (ZyrTEC) 10 mg tablet Take 1 tablet (10 mg total) by mouth 1 (one) time each day. 10/05/2021 active BIOTIN ORAL Take by mouth. activ e enoxaparin (Lovenox) 100 mg/mL syringe Inject 1 mL (100 mg total) under the skin every 12 (twelve) hours. active gabapentin (NEURONTIN) 300 mg capsule Take 1 capsule (300 mg total) by mouth 3 (three) times a day. active LORazepam (ATIVAN) 0.5 mg tablet Take 1 tablet (0.5 mg total) by mouth if needed for anxiety. active multivitamin tablet Take 1 tablet by mouth 1 (one) time each day. active rivaroxaban (XARELTO) 20 mg tablet Take by mouth 1 (one) time each day with dinner. Take with food. active Allergies Allergen Reaction Severity Comment Documented Date Source Status CONTACT METAL AGENT RASH REACTION TO CHEAP JEWELRY 10/21/2024 [facility] active HYDROCODONE NAUSEA ONLY HYDROMORPHONE OK 10/09/2024 [facility]_T [facility] active OXYCODONE HCL NAUSEA AND VOMITING HYDROMORPHONE OK 07/01/2024 [facility] active Problems Problem Status Onset Date Problem Type Date of Resoluti on Source Chronic constipation active 2012-07-19 ProblemAct [facility] Lumbar radicular pain active 2018-11-30 ProblemAct [facility] Hyperlipidemia active 2011-09-15 Problem[address] [facility] Uterine fibroid active 2020-09-[address] [facility] Abdominal pain active 2024-10-16 ProblemAct [facility]_ [facility] Breast mass active 2020-07-07 ProblemAct [facility] GERD (gastroesophageal reflux disease) active 2013-05-21 ProblemAct [facility] Recurrent UTI active 2012-01-10 ProblemAct [facility]T [facility] Bilateral primary osteoarthritis of knee active 2024-10-21 ProblemAct [facility] Osteoarthritis active 2012-06-18 ProblemAct [facility] History of recurrent deep vein thrombosis (DVT) active 2024-10-21 ProblemAct [facility] Hematuria, microscopic active 2018-11-30 ProblemAct [facility] Pulmonary embolism without acute cor pulmonale active 2024-07-25 ProblemAct [facility] Stress incontinence active 2018-11-30 ProblemAct [facility] Adjustment reaction with anxiety and depression active 2018-02-13 ProblemAct [facility] Severe obesity active 2024-10-16 ProblemAct [facility] 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-07-01 ProblemAct [facility] Venous insufficiency of both lower extremities active 2020-09-16 ProblemAct [facility] 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 ProblemAct [facility] History of COVID-19 active 2021-09-14 ProblemAct [facility] Vitamin D deficiency active 2020-09-17 ProblemAct [facility] Lymphedema active 2015-11-02 ProblemAct [facility] Iron deficiency active 2020-09-[address] [facility] Allergic rhinitis active 2018-11-30 ProblemAct [facility] Phlebitis active 2024-10-16 ProblemAct [facility] AN IBS (irritable bowel syndrome) active 2012-07-19 ProblemAct [facility] Essential hypertension active 2016-01-27 ProblemAct [facility] Hepatic steatosis active 2022-11-10 ProblemAct [facility] Obstructive sleep apnea active 2020-12-09 ProblemAct [facility] Immunizations Vaccine Date Source Lot Number Status Influenza Quadravalent, MDCK , 0.5ml, preservative free (Flucelvax) 6mo and older 06/21/2023 [id number] completed Tdap Tetanus diptheria acell ular pertussis (Boostrix; Adacel) 7yo and older 06/21/2023 [facility] [id number] completed Tb Skin Test 10/28/2022 [facility] completed Influenza Quadravalent, MDCK , 0.5ml, preservative free (Flucelvax) 6mo and older 06/23/2022 [facility] [id number] completed Influenza Quadravalent, MDCK , 0.5ml, preservative free (Flucelvax) 6mo and older 06/10/2021 [facility] [id number] completed Influenza Quadravalent, MDCK , 0.5ml, preservative free (Flucelvax) 6mo and older 05/21/2020 [facility] [id number] completed PPD Test 01/20/2017 [facility] [id number] completed Rubella 10/23/2015 [facility] completed Influenza trivalent, 0.5mL, preservative free (Fluarix; FluLaval; Fluzone) ages 6mo and older (Afluria) 3 years and older 06/15/2015 [facility] [id number] completed Influenza trivalent, 0.5mL, preservative free (Fluarix; FluLaval; Fluzone) ages 6mo and older (Afluria) 3 years and older 06/18/2012 [facility] [id number] completed PPD Test 06/18/2012 [facility] [id number] completed Influenza trivalent, 0.5mL, preservative free (Fluarix; FluLaval; Fluzone) ages 6mo and older (Afluria) 3 years and older 08/29/2011 [facility] [id number] completed Tdap Tetanus diptheria acell ular pertussis (Boostrix; Adacel) 7yo and older 08/29/2011 [facility] [id number] completed Care Team Organization Name Specialty Phone Email Start Date End [facility] Antelmo Ruelas Primary Care 07/19/2022 04/29/20 24
== END 2025-07-07 10:25 | disposition home or self-care (01) ==
LOC: HO.HOS 09:55
DX: G56.03 Carpal tunnel syndrome, bilateral upper limbs (principal)
CPT/HCPCS: 99204

== ENCOUNTER → 2025-07-07 09:55 | Outpatient (BNVA) | payer OTHER, SELFPAY | DX: G56.03 Carpal tunnel syndrome, bilateral upper limbs (principal) | CPT/HCPCS: 99202 ==

== ENCOUNTER 2025-07-14 10:50 | Day surgery (SDC) | payer OTHER, SELFPAY ==
--- OUTSIDE RECORDS SUMMARY | 2025-07-09 18:08 | XMS_ITS | Data Portability ---
Author Organization [facility], [id number] Address [address] [place] [address] Assessment No assessment recorded. Plan of Treatment Reminders Order Date Submit Date Provider Last Modified By Organization Details Last Modified Time Details Appointments None recorded. Lab None recorded. Referral None recorded. Procedures None recorded. Surgeries None recorded. Imaging None recorded. Medication Orders Aplisol 5 tub. unit/0.1 mL intradermal injection solution 2022 023 [email or web address] Not available 3 08:33:09 Patient TargetsNo targets recorded. Patient InstructionsNo instructions recorded. Reason for Referral None Reported. Medical Equipment None Reported. Medications Name Sig Start Date Stop Date Status Note LastModified by Organization Details LastModified Time silver sulfadiazi ne 1 % topical cream APPLY TO AFFECTED AREA TWICE A DAY active Not Available Not Available No t Available azithromyc in 250 mg tablet TAKE 1 TABLET BY MOUTH EVERY DAY FOR 4 DAYS active Not Available Not Available No t Available fluconazol e 150 mg tablet TAKE 1 TAB NEEDED FOR YEAST INFECTION SYMPTOMS, MAY REPEAT DOSE IN 72 HOURS IF SYMPTOMS PERSIST active Not Available Not Available No t Available Aplisol 5 tub. unit/0.1 mL intraderma l injection solution Inject 0.1 mL by intraderm al route. 2022 active Billable units for PPD is one. Units are not the dose. Not Available Not Available Not Available sertraline 100 mg tablet TAKE 1 TABLET BY MOUTH EVERY DAY IN THE MORNING active Not Available Not Available No t Available ciprofloxa tomas 500 mg tablet TAKE 1 TABLET BY MOUTH TWICE A DAY FOR DIARRHEA active Not Available Not Available No t Available doxycyclin e monohydrat e 100 mg tablet TAKE 1 TABLET BY MOUTH TWICE A DAY FOR 10 DAYS active Not Available Not Available No t Available tramadol 50 mg tablet TAKE 1 TABLET BY MOUTH EVERY 6 HOURS NEEDED FOR PAIN FOR UP TO 7 DAYS. active Not Available Not Available No t Available methenamin e hippurate 1 gram tablet TAKE 1 TABLET BY MOUTH TWICE A DAY active Not Available Not Available No t Available vitamin A 3,000 mcg (10,000 unit) capsule TAKE 2 CAPSULES BY MOUTH EVERY DAY FOR 14 DAYS active Not Available Not Available No t Available lorazepam 0.5 mg tablet TAKE 1 TABLET BY MOUTH EVERY DAY NEEDED active Not Available Not Available No t Available pantoprazo le 40 mg tablet,del ayed release TAKE 1 TABLET BY MOUTH EVERY DAY active Not Available Not Available No t Available Proctofoam HC 1 %-1 % APPLY 1 SPRAY TOPICALLY 4 TIMES DAILY FOR 10 DAYS. active Not Available Not Available No t Available warfarin 5 mg tablet PLEASE SEE ATTACHED FOR DETAILED DIRECTION S active Not Available Not Available No t Available losartan 25 mg tablet TAKE 1 TABLET BY MOUTH EVERY DAY active Not Available Not Available No t Available oxybutynin chloride ER 5 mg tablet,ext ended release 24 hr TAKE 1 TABLET BY MOUTH EVERY DAY active Not Available Not Available No t Available gabapentin 300 mg capsule TAKE 1-4 CAPSULE ORAL EVERY NIGHT FOR 30 DAYS. RECOMMEND 1-2 HOURS BEFORE BEDTIME active Not Available Not Available No t Available codeine 10 mg-guaifen esin 100 mg/5 mL oral liquid TAKE 5 ML BY MOUTH EVERY 6 HOURS,X7 DAYS NEEDED FOR COUGH *N/C* active Not Available Not Available No t Available furosemide 20 mg tablet TAKE 1 TABLET BY MOUTH EVERY DAY active Not Available Not Available No t Available morphine 15 mg immediate release tablet PLEASE SEE ATTACHED FOR DETAILED DIRECTION S active Not Available Not Available No t Available cefdinir 300 mg capsule TAKE 1 CAPSULE BY MOUTH TWICE A DAY active Not Available Not Available No t Available fluticason e propionate 50 mcg/actuat ion nasal spray,susp ension USE 2 SPRAYS IN EACH NOSTRIL DAILY active Not Available Not Available No t Available thiamine HCl (vitamin B1) 50 mg tablet TAKE 1 TABLET BY MOUTH EVERY DAY active Not Available Not Available No t Available Laxative (bisacodyl ) 5 mg tablet,del ayed release TAKE 2 TABLETS BY MOUTH AT 6PM DIRECTED. active Not Available Not Available No t Available enoxaparin 100 mg/mL subcutaneo us syringe USE SUBCUTANE OUS TWICE A DAY FOR 14 DAYS active Not Available Not Available No t Available vitamin A palmitate 3,000 mcg (10,000 unit) capsule TAKE 2 CAPSULES BY MOUTH EVERY DAY FOR 2 WEEKS active Not Available Not Available No t Available duloxetine 30 mg capsule,de layed release TAKE 1 CAPSULE BY MOUTH EVERY DAY IN THE MORNING active Not Available Not Available No t Available GaviLyte-G 236 gram-22.74 gram-6.74 gram-5.86 gram oral solution PLEASE SEE ATTACHED FOR DETAILED DIRECTION S active Not Available Not Available No t Available Vitals None Recorded Social History None recorded. Functional Status None recorded. Mental Status None recorded. Family History Nothing Reported. Medical History No medical history recorded. Gynecological HistoryNo gynecological history recorded. Obstetrics History GPAL:G 0 P 0 0 0 0 Past Encounters Encounter ID Performer Location Encounter Start Date Encounter Closed Date Diagnosis/Indication Diagnosis SNOMED-CT Code Diagnosis ICD10 Code Diagnosis IMO Codes Diagnosis Note [id number] [address] [place] [address] 05/06/2020 18:15:23 05/06/2020 18:40:11 [id number] Andreia Rapp [facility] [address] [place] [address] 04/18/2023 16:33:56 04/18/2023 18:06:29 Tuberculosis screening 659553110 Z11.1 Health Concerns Section Related Observation LastModified by Organization Detai ls LastModified Time None Recorded Concern Status LastModified by Organization Details LastModified Time None Recorded Advance Directives Directive None Recorded Payers Insurance Date Sequence Insurance Name Policy Number Policy Lomeli Covered Member ID Lomeli Member ID Guarantor Name 04/18/2023 [facility] OTHER Yojana Goff 04/18/2023 1 [facility] PL[facility] - [facility] (MEDICAID REPLACEMENT - HMO) SAMI Goff [id number] Yojana Goff OBGyn Episode No OBEpisode recorded.
--- OUTSIDE RECORDS SUMMARY | 2025-07-09 18:08 | XMS_ITS | Clinical Summary ---
Author Organization [facility] Address [address] [place] [address] Care Team Providers Care Supervisor Model Making Name Role Phone Unavailable Primary Care Provider [...] Plan of Treatment Not on file Insurance [facility] [employer]
--- OUTSIDE RECORDS SUMMARY | 2025-07-09 18:08 | XMS_ITS | Clinical Summary ---
Author Organization [address] [facility] Address [address] [place] [address] Phone Care Team Providers Care Digitizer Operator Name Role Phone Antelmo Ruelas MD Primary Care Provider [phone] Allergies Active Allergy Reactions Criticality Noted Date [...] Date Diagnosed Date DVT (deep venous thrombosis) ([facility] V24, [facility] V28) 06/05/2025 S/P bariatric surgery 12/12/2024 History of recurrent deep vein thrombosis (DVT) 10/21/2024 Bilateral primary osteoarthritis of knee 025 Abdominal pain 10/16/2024 Phlebitis 10/16/2024 Class 2 severe obesity with serious comorbidity and body mass index (BMI) of 35.0 to 35.9 in adult 10/16/2024 Pulmonary embolism without a cute cor pulmonale ([facility] V24, [facility] V28) 07/25/2024 Hepatic steatosis 11/10/2022 History of COVID-19 09/14/2021 Obstructive sleep apnea 12/09/2020 Overview (07/01/2024): [facility] Home Sleep Apnea Test: Date 12/02/2020; [...] - 06/06/2025 3:04 PM EDT Hospital Encounter [facility] [address] [place] [phone] Bobby Abrams MD Seralathan, Manikandan, MD Kela, Kashyap Devendrabhai, MD Chest pain, unspecified type (Primary Dx); Acute deep vein thrombosis (DVT) of proximal vein of right lower extremity (CMS/HCC V24, CMS/HCC V28); Acute deep vein thrombosis (DVT) of other specified vein of right lower extremity (CMS/HCC V24, CMS/HCC V28) Discharge Disposition: Home-Health Care [facility] 06/04/2025 9:02 PM EDT - 06/04/2025 10:39 PM EDT Emergency [facility] Emergency [address] [place] [phone] Juan Ramon Tinsley MD Leg pain (Primary Dx); Acute deep vein thrombosis (DVT) of proximal vein of right lower extremity (CMS/HCC V24, CMS/HCC V28); History of DVT (deep vein thrombosis); Anticoagulant long-term use Discharge Disposition: Left Against Medical Advice 06/04/2025 2:00 PM EDT Office Visit [facility] [address] [place] [address], [place] [phone] Antelmo Ruelas MD Right leg pain (Primary Dx); History of recurrent deep vein thrombosis (DVT) 06/04/2025 Telephone [facility] Medicine - [facility] [address] [place] [address] [phone] Antelmo Ruelas MD 06/04/2025 Telephone Internal Medicine - [facility] [address] [place], [place] [address], [place] [phone] Antelmo Ruelas MD 05/14/2025 [facility] [address] [place] [address] Antelmo Ruelas MD 05/06/2025 Telephone Internal Medicine - [address] [phone] Antelmo Ruelas MD 04/24/2025 7:30 AM EDT Treatment [facility] [address] [phone] Richard Fernandez, CYLINDRICAL MIXER Strain of right Achilles tendon, initial encounter (Primary Dx) 04/11/2025 Telephone Internal Medicine - [address] [phone] Antelmo Ruelas MD 04/08/2025 6:33 PM EDT - 04/08/2025 9:50 PM EDT Emergency [facility] [address] [place] [phone] Antelmo Montero MD Pain (Primary Dx); Hx of pulmonary embolus; Deep vein thrombosis (DVT) of right lower extremity, unspecified chronicity, unspecified vein ([facility] V24, [facility] V28) Discharge Disposition: Home or Self Care 04/08/2025 1:30 PM EDT Office Visit Internal Medicine - [address] [phone] Treva Bergman, LIN Acute pain of left shoulder (Primary Dx); Acute midline thoracic back pain; Left hand pain; Pulmonary embolism without acute cor pulmonale, unspecified chronicity, unspecified pulmonary embolism type ([facility] V24, [facility] V28) from Last 3 Months [...] Laminectomy UPPER GASTROINTESTINAL ENDOSCOPY 04/09/2003 Benjamin PROCEDURE: GA UPPER GI ENDOSCOPY PERFORMED; COMMENT: Antral gastritis; H. pylori treated with Prevpac UPPER GASTROINTESTINAL ENDOSCOPY 11/19/2012 PROCEDURE: GA UPPER GI ENDOSCOPY PERFORMED; COMMENT: lap band; [...] tubular adenoma OTHER SURGICAL HISTORY 12/07/2021 PROCEDURE: GA SLCTV CATH PLMT JOE SYS 1ST ORDER BRANCH OTHER SURGICAL HISTORY 12/07/2021 PROCEDURE: X-RAY EXAM OF TRUNK VEINS OTHER SURGICAL HISTORY 12/07/2021 PROCEDURE: GA INTRAVASCULAR US NONCORONARY RS&I INTIAL VESSEL OTHER SURGICAL HISTORY 12/07/2021 PROCEDURE: GA INTRAVASCULAR US NONCORONARY RS&I ADDL VESSEL OTHER [...] obesity wit h BMI of 40.0-44.9, adult ([facility]) GERD (gastroesophageal reflu x disease) [...] 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 Resection was a cure. NO potential for recurrance at that location. 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 For example, child care provider or elderly care for an older adult? [...] AM EDT Office Visit Bariatric Surgery - [address] [place] [phone] Lucretia Shaw PA [address] [place] [phone] 08/01/2025 11:15 AM EST Office Visit Internal Medicine - [address] [phone] Madeline Winkler, LIN [address] [place] [address] 12/22/2025 3:40 PM EDT Appointment Radiology Department - [address] [phone] Health Maintenance Due Date Last Done Comments [...] ECG 12-LEAD STAT 06/05/2025 1:43 PM EDT [facility] 30-74 MINUTES Routine 06/05/2025 10:56 [...] is included. WBC 4.2(L) 4.8 - 10.8 K/mcL LAB HEMETOLOGY METHOD 06/06/2025 9:12 AM [facility] RBC 3.70(L) 3.80 - 4.80 M/mcL LAB HEMETOLOGY METHOD 06/06/2025 9:12 AM [facility] Hemoglobin 11.0(L) 11.5 - 16.0 g/dL LAB HEMETOLOGY METHOD 06/06/2025 9:12 AM [facility] Hematocrit 34.0(L) 35.0 - 47.0 % LAB HEMETOLOGY METHOD 06/06/2025 9:12 AM [facility] MCV 92.9 79.0 - 98.0 FL LAB HEMETOLOGY METHOD 06/06/2025 9:12 AM [facility] MCH 30.1 27.0 - 32.0 pcg LAB HEMETOLOGY METHOD 06/06/2025 9:12 AM [facility] MCHC 32.4 32.0 - 37.0 g/dL LAB HEMETOLOGY METHOD 06/06/2025 9:12 AM [facility] RDW 15.4(H) 11.0 - 15.0 % LAB HEMETOLOGY METHOD 06/06/2025 9:12 AM [facility] Platelets 277 130 - 400 K/mcL LAB HEMETOLOGY METHOD 06/06/2025 9:12 AM [facility] MPV 9.4 7.0 - 11.0 FL LAB HEMETOLOGY METHOD 06/06/2025 9:12 AM [facility] NRBC 0.0 <1.0 % LAB HEMETOLOGY METHOD 06/06[facility]25 [facility] NRBC Absolute 0.00 <0.10 K/mcL LAB HEMETOLOGY METHOD 06/06/2025 9:12 AM [facility] Neutrophils Relative 49.6 % LAB HEMETOLOGY METHOD 06/06/2025 9:12 AM [facility] Lymphocytes Relative 40.9 % LAB HEMETOLOGY METHOD 06/06/2025 9:12 AM [facility] Monocytes Relative 6.7 % LAB HEMETOLOGY METHOD 06/06/2025 9:12 AM [facility] Eosinophils Relative 2.6 % LAB HEMETOLOGY METHOD 06/06/2025 9:12 AM [facility] Basophils Relative 0.2 % LAB HEMETOLOGY METHOD 06/06/2025 9:12 AM [facility] Immature Granulocytes Relative 0.0 % LAB HEMETOLOGY METHOD 06/06/2025 9:12 AM [facility] Neutrophils Absolute 2.07 1.50 - 7.00 K/mcL LAB HEMETOLOGY METHOD 06/06/2025 9:12 AM [facility] Lymphocytes Absolute 1.71 1.00 - 5.00 K/mcL LAB HEMETOLOGY METHOD 06/06/2025 9:12 AM [facility] Monocytes Absolute 0.28 0.20 - 1.00 K/mcL LAB HEMETOLOGY METHOD 06/06/2025 9:12 AM [facility] Eosinophils Absolute 0.11 0.00 - 0.50 K/mcL LAB HEMETOLOGY METHOD 06/06/2025 9:12 AM [facility] Basophils Absolute 0.01 0.00 - 0.20 K/mcL LAB HEMETOLOGY METHOD 06/06/2025 9:12 AM [facility] Immature Granulocytes Absolute 0.00 0.00 - 0.03 K/mcL LAB HEMETOLOGY METHOD 06/06/2025 9:12 AM EDT [facility] Blood Venous blood specimen / Unknown Venipuncture / Unknown 06/06/2025 8:32 AM EDT 06/06/2025 9:06 AM EDT Sarah READ LAB BLOOD ORDERABLES Fi nal Result Performing Organization Address [facility] de Phone Number [facility] [address] [place] [address], [place] [phone] * (ABNORMAL) Activated Partial Thromboplastin Time - Every 6 Hours (06/06/2025 8:32 AM EDT) Only the most recent of6 resultswithin the time period is included. aPTT 86.2(H) 24.1 - 39.3 sec LAB COAGULATION METHOD 06/06/2025 9:38 AM EDT [facility] Blood Venous blood specimen / Unknown Venipuncture / Unknown 06/06/2025 8:32 AM EDT 06/06/2025 9:06 AM EDT Bulmaro Al MD LAB BLOOD ORDERABLES Fi nal Result Performing Organization Address [facility] de Phone Number [facility] [address] [place] [address], [place] [phone] * (ABNORMAL) Basic metabolic panel (06/06/2025 8:32 AM EDT) Sodium 142 133 - 145 mmol/L LAB CHEMISTRY METHOD 06/06/2025 9:50 AM EDT [facility] Potassium 4.2 3.5 - 5.5 mmol/L LAB CHEMISTRY METHOD 06/06/2025 9:50 AM EDT [facility] Chloride 112(H) 96 - 110 mmol/L LAB CHEMISTRY METHOD 06/06/2025 9:50 AM EDT [facility] CO2 27 21 - 32 mmol/L LAB CHEMISTRY METHOD 06/06/2025 9:50 AM [facility] Anion Gap 3 3 - 11 LAB CHEMISTRY METHOD 06/06/2025 9:50 AM [facility] Glucose 80 70 - 100 mg/dL LAB CHEMISTRY METHOD 06/06/2025 9:50 AM [facility] BUN 9 5 - 25 mg/dL LAB CHEMISTRY METHOD 06/06/2025 9:50 AM [facility] Creatinine 0.49(L) 0.50 - 1.10 mg/dL LAB CHEMISTRY METHOD 06/06/2025 9:50 AM [facility] eGFR 111 >=60 mL/min/1. 73m2 LAB CHEMISTRY METHOD 06/06/2025 9:50 AM [facility] Comment:Calculation based on the Chronic Kidney Disease Epidemiology Collaboration (CKD-EPI) equation refit without adjustment for race. BUN/Creatinine Ratio 18.4 LAB CHEMISTRY METHOD 06/06/2025 9:50 AM [facility] Calcium 9.0 8.5 - 10.5 mg/dL LAB CHEMISTRY METHOD 06/06/2025 9:50 AM [facility] Blood Venous blood specimen / Unknown Venipuncture / Unknown 06/06/2025 8:32 AM EDT 06/06/2025 9:06 AM EDT us Sarah READ LAB BLOOD ORDERABLES Fi nal Result [facility] [address] [place] [address], * ECG-Annotated (06/06/2025) Only the most recent of2 resultswithin the time period is included. us Provider Onbase MD ECG ORDERABLES Final Result * Troponin I high sensitivity (06/05/2025 8:02 PM EDT) Only the most recent of3 resultswithin the time period is included. [facility] High Sensitivity Troponin I 3 <=54 ng/L LAB CHEMISTRY METHOD 06/05/2025 9:41 PM EDT [facility] Blood Venous blood specimen / Unknown Venipuncture / Unknown 06/05/2025 8:02 PM EDT 06/05/2025 8:31 PM EDT [facility] - 06/05/2025 9:41 PM EDT High levels of biotin in samples may falsely decrease hsTroponin values. Use caution when interpreting hsTroponin results in patients taking biotin who exhibit renal impairment (eGFR <60) or in patients taking more than 20 mg/day of biotin. us Bobby Abrams MD LAB BLOOD ORDERABLES Final Resul t Performing Organization Address City/[facility]/ZIP Co de Phone Number [facility] [address] [place] [address], [place] [phone] * (ABNORMAL) Anti-Xa - Every 6 Hours (06/05/2025 8:02 PM EDT) Only the most recent of2 resultswithin the time period is included. [facility] Heparin Anti-Xa 1.25(H) 0.30 - 0.70 I Unit/mL LAB COAGULATION METHOD 06/05/2025 9:16 PM EDT [facility] Blood Venous blood specimen / Unknown Venipuncture / Unknown 06/05/2025 8:02 PM EDT 06/05/2025 8:31 PM EDT [facility] - 06/05/2025 9:16 PM EDT Therapeutic range listed is for Unfractionated Heparin. LMW Heparin therapeutic range: 0.50-1.20 IU/mL us Bobby Abrams MD LAB BLOOD ORDERABLES Final Resul t Performing Organization Address [facility]/ZIP Co de Phone Number [facility] [address] [place] [address], [place] [phone] * CT Angio Chest wo and/or w [...] Signed Date: 06/05/2025 15:59 ET Workstation ID: [id number] Transcribed By: Self Edit Transcribed Date: 06/05/2025 15:47 ET Narrative 06/05/2025 3:59 PM EDT PROCEDURE: CT ANGIO CHEST INDICATION: PE suspected, high prob COMPARISON: None. TECHNIQUE: CT pulmonary angiogram performed following uneventful IV administration of ISOVUE contrast material with bolus timing technique from the thoracic inlet through the lung bases. 3-D multiplanar reformations were obtained by the technologist on an independent workstation. [employer] VCT dose reduction utilizing iterative reconstruction. Total [...] obtained by the technologist on anindependent workstation. [employer] VCT dose reduction utilizing iterative reconstruction. Total [...] Signed Date: 06/05/2025 15:59 ET Workstation ID: [id number] Transcribed By: Self Edit Transcribed Date: 06/05/2025 15:47 ET us Bobby Abrams MD IMG CT PROCEDURES Final Result * Protime-INR (06/05/2025 1:45 PM EDT) Only the most recent of2 resultswithin the time period is included. Protime 12.0 10.6 - 13.9 sec LAB COAGULATION METHOD 06/05/2025 2:34 PM EDT [facility] INR 1.0 LAB COAGULATION METHOD 06/05/2025 2:34 PM EDT [facility] Blood Venous blood specimen / Unknown Venipuncture / Unknown 06/05/2025 1:45 PM EDT 06/05/2025 1:58 PM EDT us Bobby Abrams MD LAB BLOOD ORDERABLES Final Resul t Performing Organization Address City/[facility]/ZIP Co de Phone Number [facility] [address] [place] [address], [place] [phone] * Type and screen (06/05/2025 1:45 PM EDT) Pathologist [facility] B 06/05/2025 3:12 PM EDT [facility] Rh Type Positive 06/05/2025 3:12 PM EDT [facility] Antibody Screen Negative 06/05/2025 3:12 PM EDT [facility] Blood Venous blood specimen / Unknown Venipuncture / Unknown 06/05/2025 1:45 PM EDT 06/05/2025 1:59 PM EDT us Bobby Abrams MD LAB BLOOD BANK TEST ORDERABLES F inal Result [facility] [address] [place] [address], [place] [phone] * B-type natriuretic peptide (06/05/2025 1:45 PM EDT) BNP 92 <=100 pcg/mL LAB CHEMISTRY METHOD 06/05/2025 2:38 PM EDT [facility] Blood Venous blood specimen / Unknown Venipuncture / Unknown 06/05/2025 1:45 PM EDT 06/05/2025 1:58 PM EDT us Bobby Abrams MD LAB BLOOD ORDERABLES Final Resul t Performing Organization Address City/[facility]/ZIP Co de Phone Number [facility] [address] [place] [address], [place] [phone] * Lipase (06/05/2025 1:45 PM EDT) Only the most recent of2 resultswithin the time period is included. Lipase 30 13 - 75 unit/L LAB CHEMISTRY METHOD 06/05/2025 2:26 PM EDT [facility] Blood Venous blood specimen / Unknown Venipuncture / Unknown 06/05/2025 1:45 PM EDT 06/05/2025 1:58 PM EDT us Bobby Abrams MD LAB BLOOD ORDERABLES Final Resul t Performing Organization Address [facility] de Phone Number [facility] [address] [place] [address], [place] [phone] * (ABNORMAL) Comprehensive metabolic panel (06/05/2025 1:45 PM EDT) Only the most recent of2 resultswithin the time period is included. Sodium 144 133 - 145 mmol/L LAB CHEMISTRY METHOD 06/05/2025 2:27 PM EDT [facility] Potassium 4.0 3.5 - 5.5 mmol/L LAB CHEMISTRY METHOD 06/05/2025 2:27 PM EDT [facility] Chloride 112(H) 96 - 110 mmol/L LAB CHEMISTRY METHOD 06/05/2025 2:27 PM [facility] CO2 26 21 - 32 mmol/L LAB CHEMISTRY METHOD 06/05/2025 2:27 PM [facility] Anion Gap 6 3 - 11 LAB CHEMISTRY METHOD 06/05/2025 2:27 PM [facility] Glucose 85 70 - 100 mg/dL LAB CHEMISTRY METHOD 06/05/2025 2:27 PM [facility] BUN 13 5 - 25 mg/dL LAB CHEMISTRY METHOD 06/05/2025 2:27 PM [facility] Creatinine 0.71 0.50 - 1.10 mg/dL LAB CHEMISTRY METHOD 06/05/2025 2:27 PM [facility] eGFR 100 >=60 mL/min/1. 73m2 LAB CHEMISTRY METHOD 06/05/2025 2:27 PM [facility] Comment:Calculation based on the Chronic Kidney Disease Epidemiology Collaboration (CKD-EPI) equation refit without adjustment for race. BUN/Creatinine Ratio 18.3 LAB CHEMISTRY METHOD 06/05/2025 2:27 PM [facility] Calcium 9.0 8.5 - 10.5 mg/dL LAB CHEMISTRY METHOD 06/05/2025 2:27 PM [facility] AST (SGOT) 24 10 - 42 unit/L LAB CHEMISTRY METHOD 06/05/2025 2:27 PM [facility] ALT (SGPT) 33 10 - 60 unit/L LAB CHEMISTRY METHOD 06/05/2025 2:27 PM [facility] Alkaline Phosphatase 83 42 - 121 unit/L LAB CHEMISTRY METHOD 06/05/2025 2:27 PM [facility] Total Protein 6.6 6.0 - 8.0 g/dL LAB CHEMISTRY METHOD 06/05/2025 2:27 PM [facility] Albumin 3.5 3.2 - 5.0 g/dL LAB CHEMISTRY METHOD 06/05/2025 2:27 PM EDT [facility] Total Bilirubin 0.5 0.0 - 1.4 mg/dL LAB CHEMISTRY METHOD 06/05/2025 2:27 PM EDT [facility] Blood Venous blood specimen / Unknown Venipuncture / Unknown 06/05/2025 1:45 PM EDT 06/05/2025 1:58 PM EDT Bobby Abrams MD LAB BLOOD ORDERABLES Final Resul t [facility] [address] [place] [address], [place] [phone] * ECG 12 lead (06/05/2025 1:43 PM EDT) Only the most recent of2 resultswithin the time period is included. Ventricular Rate ECG 57 BPM GEMUSE Atrial Rate 57 BPM GEMUSE P-R Interval 190 ms GEMUSE QRS Duration 80 ms GEMUSE Q-T Interval 454 ms GEMUSE QTc 441 ms GEMUSE P Wave [place] 49 degrees GEMUSE R [place] 49 degrees GEMUSE T [place] 50 degrees GEMUSE ECG Interpretation Sinus bradycardia Otherwise normal ECG When compared with ECG of 08-APR-2025 19:01, T wave amplitude has decreased in Anterior leads Confirmed by Parisa FAROOQ JOHN ([id number]) on 06/05/2025 3:45:31 PM GEMUSE 06/05/2025 1:43 PM EDT 06/05/2025 3:45 PM EDT us Bobby Abrams MD ECG ORDERABLES Final Result Performing Organization Address City/[facility]/ZIP Co de Phone Number GEMUSE * [facility] 30-74 MINUTES (06/05/2025 10:56 AM [...] refractory Xarelto requiring IV heparin us Bobby Abrams MD IN CLINIC/BEDSIDE ORDERABLES Fin al Result [...] - AUTOMATED METHOD 05/07/2025 3:06 PM EDT [facility] WBC, Urine 8.4(H) 0 - 4 /HPF LAB URINALYSIS - AUTOMATED METHOD 05/07/2025 3:06 PM EDT [facility] Squamous Epithelial, Urine 19 0 - 60 /LPF LAB URINALYSIS - AUTOMATED METHOD 05/07/2025 3:06 PM EDT [facility] Bacteria, Urine Many(A) Negative /HPF LAB URINALYSIS - AUTOMATED METHOD 05/07/2025 3:06 PM EDT [facility] Hyaline Casts, Urine 0.8 0 - 3 /LPF LAB URINALYSIS - AUTOMATED METHOD 05/07/2025 3:06 PM EDT [facility] Urine Urine specimen obtained by clean catch procedure / Unknown Non-blood Collection / Unknown 05/07/2025 1:09 PM EDT 05/07/2025 1:09 PM EDT Naresh Scott MD LAB URINE ORDERABLES Final Resul t [facility] [address] [place] [address], [place] [phone] * (ABNORMAL) Culture urine (05/07/2025 1:09 PM EDT) Culture, Urine >=100,000 CFU/mL Escherichia coli(A) KRYSTAL 05/09/2025 10:37 AM EDT [facility] Urine Urine specimen obtained [...] ORDER SHAW Final Result Performing Organization Address City/[facility]/ZIP Co de Phone Number [facility] [address] [place] [address], [place] [phone] * Magnesium (04/08/2025 3:48 PM EDT) Pathologist [facility] Magnesium 2.1 1.9 - 2.6 mg/dL LAB CHEMISTRY METHOD 04/08/2025 4:33 PM EDT [facility] Blood Venous blood specimen / Unknown Venipuncture / Unknown 04/08/2025 3:48 PM EDT 04/08/2025 3:54 PM EDT David Chavarria MD LAB BLOOD ORDERABLES Final Result Performing Organization Address City/[facility]/ZIP Co de Phone Number [facility] [address] [place] [address], [place] [phone] * Lipid panel with reflex to direct LDL (01/14/2025 1:32 PM EDT) Cholesterol 183 0 - 200 mg/dL LAB CHEMISTRY METHOD 01/14/2025 7:40 PM EDT [facility] Triglycerides 81 0 - 150 mg/dL LAB CHEMISTRY METHOD 01/14/2025 7:40 PM EDT [facility] HDL 71 >=40 mg/dL LAB CHEMISTRY METHOD 01/14/2025 7:40 PM EDT [facility] LDL Calculated 96 0 - 100 mg/dL LAB CHEMISTRY METHOD 01/14/2025 7:40 PM EDT [facility] VLDL Cholesterol Evaristo 16.2 mg/dL LAB CHEMISTRY METHOD 01/14/2025 7:40 PM EDT [facility] Non HDL Chol. (LDL+VLDL) 112 <145 mg/dL LAB CHEMISTRY METHOD 01/14/2025 7:40 PM EDT [facility] Chol/HDL Ratio 2.6 0.0 - 4.4 LAB CHEMISTRY METHOD 01/14/2025 7:40 PM EDT [facility] Blood Venous blood specimen / Unknown Venipuncture / Unknown 01/14/2025 1:32 PM EDT 01/14/2025 1:33 PM EDT us Antelmo Ruelas MD LAB BLOOD ORDERABLES Final Res ult [facility] [address] [place] [address], [place] [phone] * MG Mammo Digital Screening w Santy bilat (12/16/2024 5:36 PM EDT) Anatomical Region Laterality Modality Breast Bilateral Mammography 12/17/2024 5:12 PM EDT Impressions 12/17/2024 5:14 PM EDT No mammographic evidence of malignancy. BREAST DENSITY: B - There are scattered areas of fibroglandular density. BI-RADS CATEGORY: 1 - NEGATIVE RECOMMENDATION: Screening bilateral mammogram is recommended in 1 year. MAMMO LOCATION: [facility], [address] [place] [address], [phone], . -------- FINAL REPORT -------- Dictated By: Alison Chavarria Dictated Date: 12/17/2024 17:12 ET Assigned Physician: Alison Chavarria Reviewed and Electronically Signed By: Alison Chavarria Signed Date: 12/17/2024 17:14 ET Workstation ID: [id number] Transcribed By: Self Edit Transcribed Date: 12/17/2024 [...] is recommended in 1 year. MAMMO LOCATION: [facility], [address] [place] [address], [id number], . -------- FINAL REPORT -------- Dictated By: Alison Chavarria Dictated Date: 12/17/2024 17:12 ET Assigned Physician: Alison Chavarria Reviewed and Electronically Signed By: Alison Chavarria Signed Date: 12/17/2024 17:14 ET Workstation ID: [id number] Transcribed By: Self Edit Transcribed Date: 12/17/2024 17:12 ET Antelmo PATEL BI PROCEDURES Final Result * Colonoscopy (03/23/2023) Colonoscopy no interpretation , abstracted Anatomical Region Laterality Modality Other Historical Provider MD HEALTH MAINTENANCE Final Result from Last 3 Months or Most Recently Relevant to Health Maintenance Insurance [facility] Advance Directives * Full Code - [...] currently active code status orders. Care Teams Digitizer Operator Relationship Specialty Start Date End Date Antelmo Ruelas MD [address] [place] [id number] PCP - General Internal Medicine 07/01/11
--- OUTSIDE RECORDS SUMMARY | 2025-07-09 18:08 | XMS_ITS ---
Author Organization [facility] Address [address] [place] [address] Phone Care Team Providers Care Apartment Rental Agent Name Role Phone Antelmo Ruelas MD Primary Care Provider [phone] Active Problems Problem Noted Date Diagnosed Date DVT (deep venous thrombosis) ([facility] V24, [facility] V28) 06/05/2025 S/P bariatric surgery [...] 09/14/2021 Obstructive sleep apnea 12/09/2020 Overview (07/01/2024): [facility] Home Sleep Apnea Test: Date 12/02/2020; [...]
[2025-07-14 11:01] VITALS: BMI 33.4
--- NOTE | 2025-07-14 11:39 | P.OP_ITS ---
Operative Note Operative Note Date of Service: 07/14/25 Narrative: Preop diagnosis: 1. Right Carpal tunnel syndrome Postop diagnosis: same Procedure: 1. Right Carpal tunnel release Surgeon: Sheree Lin MD Medical Office Receptionist Assistant: None Anesthesia: local block using 1% lidocaine with epinephrine Findings: Thickened transverse carpal ligament. EBL: Less than 5 mL Specimens: None Complications: None Disposition: Brought to recovery room in stable condition Plan: Follow-up for 10-14 days for wound check and suture removal Indications: The patient is 55 years old, with right carpal tunnel syndrome that has been unresponsive to nonoperative management. The risks and benefits of operative treatment including but not limited to risk of damage to blood vessels, nerves, tendons, infection, persistent pain, persistent symptoms, or possible need for additional surgery were discussed with the patient and the patient wishes to proceed with surgery. Procedure: Once consent was obtained a local block was performed using a combination of 1% lidocaine with epinephrine. The patient was then brought back to the operating suite and placed on the operative table in supine position. The right upper extremity was prepped and draped in a standard surgical fashion. Once assured that we had a good block, a 2.0 cm longitudinal incision was made centered over the carpal tunnel. The incision was made through the skin to the subcutaneous tissues using a #15 blade. Dissection was made down to the level of the transverse carpal ligament with care being taken to protect the palmar cutaneous nerve. Once the transverse carpal ligament was clearly visualized, a longitudinal incision was made in the transverse carpal ligament 1st using a #15 blade, then using tenotomy scissors under direct visualization. Care was taken to look for and protect the motor branch of the median nerve when seen in this area. Once satisfied with our carpal tunnel release the wound was copiously irrigated with normal saline and hemostasis was obtained with a brief period of local pressure. The skin edges were reapproximated with some 5.0 nylon suture material and a sterile dressing was applied. The patient appears to have tolerated the procedure well and with no complic ations. All digits were well vascularized at the conclusion of the case.
--- NOTE | 2025-07-14 11:40 | MHC.SHP ---
Pre-Procedural Eval Section A - 24 Hr Update-Section A only Date of Service: 07/14/25 The patient is an INPATIENT: No Changes since office visit: No Cold of Flu in the past 2 weeks, No New Medical Problems, No Changes in Medication and No Patient answered all questions The patient has been examined within 24 hours of the surgical procedure. The History & Physical has been completed within 30 days and I have reviewed it.: Yes Section B - Complete if H&P > 30 days Chief Complaint: Carpal tunnel syndrome, right upper limb Allergies: Allergies Allergy/AdvReac Type Severity Reaction Status Date / Time No Known Allergies Allergy Verified 07/14/25 11:07 Plan Diagnosis/Plan: Unchanged I have reviewed the history and physical and performed a pertinent physical examination on my patient. No changes have occurred unless specified. Time Spent With Patient Time: Total time managing care of this patient today ____ minutes.
[2025-07-14 12:55] VITALS: BP 143/90; PULSE 73; RESP 16; O2SAT 100
== END 2025-07-14 13:09 | disposition home or self-care (01) ==
PROVIDERS: PCP Internal Medicine; Visit Provider Orthopaedic Surgery
PROC: (CPT 64721; principal; 2025-07-14 13:30)
DX: G56.01 Carpal tunnel syndrome, right upper limb (principal); R20.0 Anesthesia of skin; R20.2 Paresthesia of skin; Z79.01 Long term (current) use of anticoagulants; Z98.890 Other specified postprocedural states; Z98.84 Bariatric surgery status; Z90.3 Acquired absence of stomach [part of]
CPT/HCPCS: 64721; J0165; J2003

== ENCOUNTER → 2025-07-14 10:50 | Outpatient (BNV) | payer OTHER, SELFPAY | PROVIDERS: PCP Internal Medicine; Visit Provider Orthopaedic Surgery | DX: G56.01 Carpal tunnel syndrome, right upper limb (principal) | CPT/HCPCS: 64721 ==

== ENCOUNTER 2025-07-29 12:58 | Outpatient (AMB) | payer OTHER, SELFPAY ==
[2025-07-29 13:07] VITALS: BMI 33.4
--- NOTE | 2025-07-29 13:07 | A.OFFVIS_ITS ---
Vital Signs 07/29/25 13:07 Height 5 ft 8 in Weight 220 lb BMI 33.4 Intake Visit Reasons: PO RT CTR 07/14/25 AR Intake Note: Yojana is a 55 year old right hand dominant female who presents today for a Post- Operative Visit status post Right Carpal Tunnel Release performed by Dr. Lin on 07/14/25. Patient reports she is doing well. She denies any numbness, tingling, fingr locking. Sutures removed and steri strips applied. Allergies No Known Allergies Allergy (Verified 07/29/25 13:08) HPI HPI PO RT CTR 07/14/25 AR: Details: Yojana is a 55 year old right hand dominant female who presents today for a Post- Operative Visit status post Right Carpal Tunnel Release performed by Dr. Lin on 07/14/25. Patient reports she is doing well. She denies any numbness, tingling, fingr locking. Denies any pain around the incision site. Denies redn ess, swelling, discharge. Sutures removed and steri strips applied. PFSH Surgical History Hx of breast biopsy History of back surgery Hx of hysterectomy S/P laparoscopic sleeve gastrectomy Hx of laparoscopic gastric banding Hx of colonoscopy Family History Mother No problems noted. Father No problems noted. Sister No problems noted. Sister No problems noted. Son No problems noted. Son No problems noted. Son No problems noted. Daughter No problems noted. 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 Good APB muscle firing and good finger cross. Vascular: Capillary refill brisk. ROM: Patient can make a fist and extend all their digits. Skin: Well approximated and well healing incision site noted on the volar right wrist No lacerations or abrasions noted. General: No ecchymosis. No erythema or evidence of infection. Results Reviewed Results Reviewed: IMPRESSION: 1. This is an abnormal study. 2. There is electrodiagnostic evidence for bilateral moderate-severe median n europathy at the wrist, consistent with carpal tunnel syndrome. 3. There is no electrodiagnostic evidence for ulnar neuropathy, brachial plexopathy, or cervical radiculopathy. Thank you for your kind referral. Yahaira Carolina MD, LIZETH Assessment & Plan Assessment & Plan (1) Carpal tunnel syndrome, bilateral: Code(s): G56.03 - Carpal tunnel syndrome, bilateral upper limbs Category: Medical Plan 1. Left carpal tunnel syndrome Intermittent, daily, worse at night I educated the patient about the condition. I discussed both operative and nonoperative treatment options. The patient would like to proceed with surgery. The risks and benefits of operative treatment were discussed with the patient and the patient wishes to proceed with surgery. These risks include, but are not limited to, risk of damage to blood vessels, nerves, tendons, infection, recurrence, incomplete relief of preoperative symptoms, persistent pain, possible need for further surgery, and the risks associated with regional blocks and/or anesthesia. Plan is to take the patient to the operating room at some point in the next few weeks for the following procedures: 1. Left carpal tunnel release under local All of the preoperative paperwork including the consent was discussed today. All of the patient's questions were answered in the clinic today. The patient understands that they will be in contact with our neurosurgical nurse to discuss scheduling their procedure. Takes Xarelto, does not need to hold prior to surgery Patient denies diabetes, asthma, heart issues, lung issues, kidney issues, or current smoking. 1. Status post right carpal tunnel release DOS 07/14/2025 With good symptomatic resolution postoperatively Patient appears to be recovering well postoperatively Patient is educated about the typical recovery course No under water times one-week, 2 lb weight limit x2 weeks Patient appears to be recovering very well, and requires no further acute follow-up with us postoperatively Patient is educated and worrisome signs and symptoms, and should call us if they experience any of these, including but not limited to redness, swelling, increased pain, and discharge Patient understands this and is amenable to this plan Coding Level of Care Code Est Pt Level 4 (34677) Diagnoses Carpal tunnel syndrome, bilateral G56.03
--- OUTSIDE RECORDS SUMMARY | 2025-07-30 04:27 | XMS_ITS | Data Portability ---
Author Organization [facility], [address] Address [address] [place] [address] Assessment No assessment recorded. Plan of Treatment [...] ICD10 Code Diagnosis IMO Codes Diagnosis Note [id number] [address] [place] [address] 05/06/2020 18:15:23 05/06/2020 18:40:11 [id number] Andreia Rapp MD [address] [place] [address] 04/18/2023 16:33:56 04/18/2023 18:06:29 Tuberculosis screening [id number] Z11.1 Health Concerns Section Related Observation LastModified by Organization Detai ls LastModified Time None Recorded Concern Status LastModified by Organization Details LastModified Time None Recorded Advance Directives Directive None Recorded Payers Insurance Date Sequence Insurance Name Policy Number Policy Lomeli Covered Member ID Lomeli Member ID Guarantor Name 04/18/2023 [employer] [facility] [employer] [facility] OTHER Yojana Goff 04/18/2023 1 [facility] PLAN - [facility] (MEDICAID REPLACEMENT - HMO) SAIM Goff [id number] Yojana Goff OBGyn Episode No OBEpisode recorded.
== END 2025-07-29 13:28 | disposition home or self-care (01) ==
LOC: HO.HOS 12:59
DX: G56.03 Carpal tunnel syndrome, bilateral upper limbs (principal)
CPT/HCPCS: 99214

== ENCOUNTER → 2025-07-29 12:58 | Outpatient (BNVA) | payer OTHER, SELFPAY | DX: G56.03 Carpal tunnel syndrome, bilateral upper limbs (principal) | CPT/HCPCS: 99212 ==

== ENCOUNTER 2025-08-21 06:26 | Day surgery (SDC) | payer OTHER, SELFPAY ==
--- OUTSIDE RECORDS SUMMARY | 2025-08-01 08:30 | XMS_ITS | Data Portability ---
Author Organization [facility], [address] Address [address] [place] [address] Assessment No assessment recorded. Plan of Treatment [...] ICD10 Code Diagnosis IMO Codes Diagnosis Note [id number] [address] [place] [address] 05/06/2020 18:15:23 05/06/2020 18:40:11 [id number] Andreia Rapp [facility] [address] [place] [address] 04/18/2023 16:33:56 04/18/2023 18:06:29 Tuberculosis screening [id number] Z11.1 Health Concerns Section Related Observation LastModified by Organization Detai ls LastModified Time None Recorded Concern Status LastModified by Organization Details LastModified Time None Recorded Advance Directives Directive None Recorded Payers Insurance Date Sequence Insurance Name Policy Number Policy Lomeli Covered Member ID Lomeli Member ID Guarantor Name 04/18/2023 [employer] [facility] [employer] [facility] OTHER Yojana Goff 04/18/2023 1 [facility] PLAN - [facility] (MEDICAID REPLACEMENT - HMO) SAMI Goff [id number] Yojana Goff OBGyn Episode No OBEpisode recorded.
--- OUTSIDE RECORDS SUMMARY | 2025-08-01 08:30 | XMS_ITS | Clinical Summary ---
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 The examination was performed utilizing dose reduction techniques. COMPARISON: No priors available. FINDINGS: No acute fracture or prevertebral swelling. Straightening of the normal cervical lordosis, likely degenerativeinterpositional. Multilevel degenerative changes are seen throughout the cervical spinewith uncovertebral spurring and facet arthropathy present. Advanced facetarthritis on the right at C3-4. No pneumothorax at the lung apices. IMPRESSION: No acute cervical spine fracture. -------- FINAL REPORT -------- Dictated By: TED PATE Dictated Date: 07/18/2025 10:33 ET Assigned Physician: TED PATE Reviewed and Electronically Signed By: TED PATE Signed Date: 07/18/2025 10:36 ET Workstation ID: [id number] Transcribed By: Self Edit Transcribed Date: 07/18/2025 10:33 ET Bobby Abrams MD IM CT PROCEDURES Final Result * CT Head wo Contrast (07/18/2025 10:21 AM EST) Anatomical Region Laterality Modality Head and Neck Computed Tomogra phy 07/18/2025 10:3 6 AM EST Impressions 07/18/2025 10:43 AM EST No acute intracranial abnormality. -------- FINAL REPORT -------- Dictated By: TED PATE Dictated Date: 07/18/2025 10:36 ET Assigned Physician: TED PATE Reviewed and Electronically Signed By: TED PATE Signed Date: 07/18/2025 10:43 ET Workstation ID: [id number] Transcribed By: Self Edit Transcribed Date: 07/18/2025 10:36 ET Narrative 07/18/2025 10:43 AM EST PROCEDURE: HEAD CT INDICATION: Trauma, pain TECHNIQUE: CT of the head without intravenous contrast. Multiplanar reformats. The examination was performed utilizing dose reduction techniques. Total DLP 1728 COMPARISON: No priors available. FINDINGS: No acute territorial infarct, mass effect, or intracranial hemorrhage. Herring-white differentiation is maintained. Brain parenchyma is within normal limits. Ventricles, sulci, and cisterns are normal in size and configuration. No hydrocephalus or volume loss. Visualized paranasal sinuses and mastoid air cells are clear. No scalp hematoma or skull fracture. Procedure Note Ted Pate MD - 07/18/2025 PROCEDURE: HEAD CT INDICATION: Trauma, pain TECHNIQUE: CT of the head without intravenous contrast. Multiplanarreformats. The examination was performed utilizing dose reductiontechniques. Total DLP 1728 COMPARISON: No priors available. FINDINGS: No acute territorial infarct, mass effect, or intracranial hemorrhage. Herring-white differentiation is maintained. Brain parenchyma is withinnormal limits. Ventricles, sulci, and cisterns are normal in size and configuration. Nohydrocephalus or volume loss. Visualized paranasal sinuses and mastoid air cells are clear. No scalp hematoma or skull fracture. IMPRESSION: No acute intracranial abnormality. -------- FINAL REPORT -------- Dictated By: TED PATE Dictated Date: 07/18/2025 10:36 ET Assigned Physician: TED PATE Reviewed and Electronically Signed By: TED PATE Signed Date: 07/18/2025 10:43 ET Workstation ID: [id number] Transcribed By: Self Edit Transcribed Date: 07/18/2025 10:36 ET Bobby Abrams MD IM CT PROCEDURES Final Result * 12-Lead ECG (07/18/2025 9:04 AM EST) Only the most recent of2 resultswithin the time period is included. Ventricular Rate ECG 68 BPM GEMUSE Atrial Rate 68 BPM GEMUSE P-R Interval 192 ms GEMUSE QRS Duration 82 ms GEMUSE Q-T Interval 426 ms GEMUSE QTc 452 ms GEMUSE P Wave [place] 53 degrees GEMUSE R [place] 43 degrees GEMUSE T [place] 43 degrees GEMUSE ECG Interpretation Normal sinus rhythm Normal ECG When compared with ECG of 05-JUN-2025 13:43, No significant change was found Confirmed by DIXIE FENTON ([id number]) on 07/19/2025 1:19:36 PM GEMUSE 07/18/2025 9:04 AM EST 07/19/2025 1:19 PM EST us Bobby Abrams MD ECG ORDERABLES Final Result GEMUSE * (ABNORMAL) CBC auto differential (07/18/2025 8:57 AM EST) Only the most recent of4 resultswithin the time period is included. [facility] WBC 6.2 4.8 - 10.8 K/mcL LAB HEMETOLOGY METHOD 07/18/2025 9:09 AM [facility] RBC 3.90 3.80 - 4.80 M/mcL LAB HEMETOLOGY METHOD 07/18/2025 9:09 AM [facility] Hemoglobin 11.9 11.5 - 16.0 g/dL LAB HEMETOLOGY METHOD 07/18/2025 9:09 AM [facility] Hematocrit 36.3 35.0 - 47.0 % LAB HEMETOLOGY METHOD 07/18/2025 9:09 AM [facility] MCV 93.1 79.0 - 98.0 FL LAB HEMETOLOGY METHOD 07/18/2025 9:09 AM [facility] MCH 30.5 27.0 - 32.0 pcg LAB HEMETOLOGY METHOD 07/18/2025 9:09 AM [facility] MCHC 32.8 32.0 - 37.0 g/dL LAB HEMETOLOGY METHOD 07/18/2025 9:09 AM [facility] RDW 15.6(H) 11.0 - 15.0 % LAB HEMETOLOGY METHOD 07/18/2025 9:09 AM [facility] Platelets 327 130 - 400 K/mcL LAB HEMETOLOGY METHOD 07/18/2025 9:09 AM [facility] MPV 8.9 7.0 - 11.0 FL LAB HEMETOLOGY METHOD 07/18/2025 9:09 AM [facility] NRBC 0.0 <1.0 % LAB HEMETOLOGY METHOD 07/18/2025 9:09 AM [facility] NRBC Absolute 0.00 <0.10 K/mcL LAB HEMETOLOGY METHOD 07/18/2025 9:09 AM [facility] Neutrophils Relative 73.4 % LAB HEMETOLOGY METHOD 07/18/2025 9:09 AM [facility] Lymphocytes Relative 20.6 % LAB HEMETOLOGY METHOD 07/18/2025 9:09 AM [facility] Monocytes Relative 5.1 % LAB HEMETOLOGY METHOD 07/18/2025 9:09 AM [facility] Eosinophils Relative 0.5 % LAB HEMETOLOGY METHOD 07/18/2025 9:09 AM [facility] Basophils Relative 0.2 % LAB HEMETOLOGY METHOD 07/18/2025 9:09 AM [facility] Immature Granulocytes Relative 0.2 % LAB HEMETOLOGY METHOD 07/18/2025 9:09 AM [facility] Neutrophils Absolute 4.57 1.50 - 7.00 K/mcL LAB HEMETOLOGY METHOD 07/18/2025 9:09 AM [facility] Lymphocytes Absolute 1.28 1.00 - 5.00 K/mcL LAB HEMETOLOGY METHOD 07/18/2025 9:09 AM EST [facility] Monocytes Absolute 0.32 0.20 - 1.00 K/[facility] LAB HEMETOLOGY METHOD 07/18/2025 9:09 AM EST [facility] Eosinophils Absolute 0.03 0.00 - 0.50 K/[facility] LAB HEMETOLOGY METHOD 07/18/2025 9:09 AM EST [facility] Basophils Absolute 0.01 0.00 - 0.20 K/[facility] LAB HEMETOLOGY METHOD 07/18/2025 9:09 AM EST [facility]) [facility] Immature Granulocytes Absolute 0.01 0.00 - 0.03 K/[facility] LAB HEMETOLOGY METHOD 07/18/2025 9:09 AM EST [facility] Blood Venous blood specimen / Unknown Venipuncture / Unknown 07/18/2025 8:57 AM EST 07/18/2025 9:03 AM EST us Bobby Abrams MD LAB BLOOD ORDERABLES Final Resul t Performing Organization Address City/[facility]/ZIP Co de Phone Number [facility] [address] [place] [address], * APTT (07/18/2025 8:57 AM EST) Only the most recent of7 resultswithin the time period is included. aPTT 26.7 24.1 - 39.3 sec LAB COAGULATION METHOD 07/18/2025 9:20 AM EST [facility] Blood Venous blood specimen / Unknown Venipuncture / Unknown 07/18/2025 8:57 AM EST 07/18/2025 9:03 AM EST us Bobby Abrams MD LAB BLOOD ORDERABLES Final Resul t [facility] [address] [place] [address], * Protime-INR (07/18/2025 8:57 AM EST) Only the most recent of3 resultswithin the time period is included. [facility] Protime 12.8 10.6 - 13.9 sec LAB COAGULATION METHOD 07/18/2025 9:26 AM EST [facility] INR 1.0 LAB COAGULATION METHOD 07/18/2025 9:26 AM EST [facility] Blood Venous blood specimen / Unknown Venipuncture / Unknown 07/18/2025 8:57 AM EST 07/18/2025 9:03 AM EST us Bobby Abrams MD LAB BLOOD ORDERABLES Final Resul t Performing Organization Address City/[facility]/ZIP Co de Phone Number [facility] [address] [place] [address], * Type and Screen (07/18/2025 8:57 AM EST) Only the most recent of2 resultswithin the time period is included. [facility] ABO Group B 07/18/2025 10:24 AM EST [facility] Rh Type Positive 07/18/2025 10:24 AM EST [facility] Antibody Screen Negative 07/18/2025 10:24 AM EST [facility] Blood Venous blood specimen / Unknown Venipuncture / Unknown 07/18/2025 8:57 AM EST 07/18/2025 9:03 AM EST us Bobby Abrams MD LAB BLOOD BANK TEST ORDERABLES F inal Result Performing Organization Address City/[facility]/ZIP Co de Phone Number [facility] [address] [place] [address], * hCG Qualitative (07/18/2025 8:57 AM EST) [facility] hCG Qual Negative Negative 07/18/2025 9:33 AM EST [facility] Blood Venous blood specimen / Unknown Venipuncture / Unknown 07/18/2025 8:57 AM EST 07/18/2025 9:03 AM EST us Bobby Abrams MD LAB BLOOD ORDERABLES Final Resul t Performing Organization Address [facility] [[email or web address]] Co de Phone Number [facility] [address] [place] [address], [place] [phone] * Magnesium (07/18/2025 8:57 AM EST) [facility] Magnesium 1.9 1.9 - 2.6 mg/dL LAB CHEMISTRY METHOD 07/18/2025 9:30 AM EST [facility] Blood Venous blood specimen / Unknown Venipuncture / Unknown 07/18/2025 8:57 AM EST 07/18/2025 9:03 AM EST us Bobby Abrams MD LAB BLOOD ORDERABLES Final Resul t Performing Organization Address [facility] de Phone Number [facility] [address] [place] [address], [place] [phone] * Lipase (07/18/2025 8:57 AM EST) Only the most recent of2 resultswithin the time period is included. [facility] Lipase 26 13 - 75 unit/L LAB CHEMISTRY METHOD 07/18/2025 9:30 AM EST [facility] Blood Venous blood specimen / Unknown Venipuncture / Unknown 07/18/2025 8:57 AM EST 07/18/2025 9:03 AM EST us Bobby Abrams MD LAB BLOOD ORDERABLES Final Resul t Performing Organization Address City/[facility]/ZIP Co de Phone Number [facility] [address] [place] [address], [place] [phone] * Comprehensive Metabolic Panel (CMP) (07/18/2025 8:57 AM EST) Only the most recent of4 resultswithin the time period is included. Sodium 140 133 - 145 mmol/L LAB CHEMISTRY METHOD 07/18/2025 9:30 AM [facility] Potassium 3.5 3.5 - 5.5 mmol/L LAB CHEMISTRY METHOD 07/18/2025 9:30 AM [facility] Chloride 109 96 - 110 mmol/L LAB CHEMISTRY METHOD 07/18/2025 9:30 AM [facility] CO2 26 21 - 32 mmol/L LAB CHEMISTRY METHOD 07/18/2025 9:30 AM [facility] Anion Gap 5 3 - 11 LAB CHEMISTRY METHOD 07/18/2025 9:30 AM [facility] Glucose 92 70 - 100 mg/dL LAB CHEMISTRY METHOD 07/18/2025 9:30 AM [facility] BUN 9 5 - 25 mg/dL LAB CHEMISTRY METHOD 07/18/2025 9:30 AM [facility] Creatinine 0.72 0.50 - 1.10 mg/dL LAB CHEMISTRY METHOD 07/18/2025 9:30 AM [facility] eGFR 98 >=60 mL/min/1. 73m2 LAB CHEMISTRY METHOD 07/18/2025 9:30 AM [facility] Comment:Calculation based on the Chronic Kidney Disease Epidemiology Collaboration (CKD-EPI) equation refit without adjustment for race. BUN/Creatinine Ratio 12.5 LAB CHEMISTRY METHOD 07/18/2025 9:30 AM [facility] Calcium 9.1 8.5 - 10.5 mg/dL LAB CHEMISTRY METHOD 07/18/2025 9:30 AM [facility] AST (SGOT) 40 10 - 42 unit/L LAB CHEMISTRY METHOD 07/18/2025 9:30 AM [facility] ALT (SGPT) 43 10 - 60 unit/L LAB CHEMISTRY METHOD 07/18/2025 9:30 AM EST [facility] Alkaline Phosphatase 97 42 - 121 unit/L LAB CHEMISTRY METHOD 07/18/2025 9:30 AM [facility] Total Protein 7.2 6.0 - 8.0 g/dL LAB CHEMISTRY METHOD 07/18/2025 9:30 AM EST [facility] Albumin 3.6 3.2 - 5.0 g/dL LAB CHEMISTRY METHOD 07/18/2025 9:30 AM [facility] Total Bilirubin 0.6 0.0 - 1.4 mg/dL LAB CHEMISTRY METHOD 07/18/2025 9:30 AM [facility] Blood Venous blood specimen / Unknown Venipuncture / Unknown 07/18/2025 8:57 AM EST 07/18/2025 9:03 AM EST us Bobby Abrams MD LAB BLOOD ORDERABLES Final Resul t [facility] [address] [place] [address], * Vascular US Duplex Lower Extremity Venous Right (07/11/2025 12:32 PM EDT) Only the most recent of2 resultswithin the time period is included. Anatomical Region Laterality Modality Vascular, Abdomen Ultrasound 07/11/2025 12:1 3 PM EDT Impressions 07/11/2025 12:14 PM EDT NONOCCLUSIVE THROMBUS IN THE RIGHT POPLITEAL AND PERONEAL VEINS, SIMILAR COMPARED TO PRIOR EXAMS. -------- FINAL REPORT -------- Dictated By: TED PATE Dictated Date: 07/11/2025 12:13 ET Assigned Physician: TED PATE Reviewed and Electronically Signed By: TED PATE Signed Date: 07/11/2025 12:14 ET Workstation ID: [id number] Transcribed By: Self Edit Transcribed Date: 07/11/2025 12:13 ET Narrative 07/11/2025 12:14 PM EDT PROCEDURE: VAS US DUPLEX LOWER EXT VENOUS RIGHT INDICATION: Pain TECHNIQUE: 2-D and color Doppler imaging of the right lower extremity venous vasculature with compression and augmentation maneuvers. COMPARISON: 06/04/2025 and 04/08/2025 FINDINGS: Persistent nonocclusive thrombus in the popliteal vein and peroneal vein. No other venous thrombosis Procedure Note Ted Pate MD - 07/11/2025 PROCEDURE: VAS US DUPLEX LOWER EXT VENOUS RIGHT INDICATION: Pain TECHNIQUE: 2-D and color Doppler imaging of the right lower extremityvenous vasculature with compression and augmentation maneuvers. COMPARISON: 06/04/2025 and 04/08/2025 FINDINGS: Persistent nonocclusive thrombus in the popliteal vein and peroneal vein.No other venous thrombosis IMPRESSION: NONOCCLUSIVE THROMBUS IN THE RIGHT POPLITEAL AND PERONEAL VEINS, SIMILARCOMPARED TO PRIOR EXAMS. -------- FINAL REPORT -------- Dictated By: TED PATE Dictated Date: 07/11/2025 12:13 ET Assigned Physician: TED PATE Reviewed and Electronically Signed By: TED PATE Signed Date: 07/11/2025 12:14 ET Workstation ID: [id number] Transcribed By: Self Edit Transcribed Date: 07/11/2025 12:13 ET us David Chavarria MD CV VASCULAR PROCEDURES Mireille l Result * Zinc (07/10/2025 8:38 AM EDT) Zinc, Serum/Plasma 78.4 50.0 - 150.0 ug/dL 07/14/2025 1:10 PM EST [facility] Comment: Elevated results may be due to sample collected in a non-certified trace element-free tube. This test was developed and the performance characteristics determined by [facility]. It has not been cleared or approved by the FDA. The laboratory is regulated under CLIA as qualified to perform high-complexity testing. This test is used for patient testing purposes. It should not be regarded as investigational or for research. Test performed at [facility], [address] [place] [address] Karma Martinez MD, PhD - Network Director Blood Venous blood specimen / Unknown Venipuncture / Unknown 07/10/2025 8:38 AM EDT 07/10/2025 8:38 AM EDT Lucretia READ LAB BLOOD ORDERABLES Final R esult Performing Organization Address [facility] [[email or web address]] Co de Phone Number [facility] [address] [place] [address] * Copper (07/10/2025 8:38 AM EDT) Copper, Serum/Plasma 153.67 70.0 - 160.0 ug/dL 07/14/2025 1:10 PM EST [facility] Comment: Copper values may be elevated to twice the normal levels in . Elevated results may be due to sample collected in a non-certified trace element-free tube. This test was developed and the performance characteristics determined by [facility]. It has not been cleared or approved by the FDA. The laboratory is regulated under CLIA as qualified to perform high-complexity testing. This test is used for patient testing purposes. It should not be regarded as investigational or for research. Test performed at [facility], [facility] [place] [address] Karma Martinez MD, PhD - Network Director Blood Venous blood specimen / Unknown Venipuncture / Unknown 07/10/2025 8:38 AM EDT 07/10/2025 8:38 AM EDT Lucretia READ LAB BLOOD ORDERABLES Final R esult Performing Organization Address [facility] [[email or web address]] Co de Phone Number [facility] [address] [place] [address] * (ABNORMAL) Selenum (07/10/2025 8:38 AM EDT) Selenium, Serum/Plasma 14.03(H) 5.0 - 7.0 ug/dL 07/14/2025 1:10 PM EST [facility] Comment: Elevated results may be due to sample collected in a non-certified trace element-free tube. This test was developed and the performance characteristics determined by [facility]. It has not been cleared or approved by the FDA. The laboratory is regulated under CLIA as qualified to perform high-complexity testing. This test is used for patient testing purposes. It should not be regarded as investigational or for research. Test performed at [facility], [address] , [place] [address] Karma Martinez MD, PhD - Network Director Blood Venous blood specimen / Unknown Venipuncture / Unknown 07/10/2025 8:38 AM EDT 07/10/2025 8:38 AM EDT Lucretia READ LAB BLOOD ORDERABLES Final R esult [facility] [address] [place] [address] * Nicotine and cotinine (07/10/2025 8:38 AM EDT) Nicotine <2.0 <2.0 ng/mL 07/15/2025 8:03 AM [facility] Cotinine <2.0 <2.0 ng/mL 07/15/2025 8:03 AM [facility] Comment: Additional Reference Ranges: Active Tobacco Passive Abstinence User Exposure 2 Weeks and more Nicotine 30 - 50 ng/mL <2 ng/mL <2 ng/mL Cotinine 200 - 800 ng/mL <8 ng/mL <2 ng/mL Reference Ranges from: Clin. Chem.; 48:5617-3841 (2002) Direct any interpretive questions to the toxicology laboratory. This is for medical use only, it is not intended for forensic use. If applicable, any drug confirmation testing reported here was developed and the performance characteristics determined by [facility]. This confirmation testing has not been cleared or approved by the FDA. The laboratory is regulated under CLIA as qualified to perform high-complexity testing. This test is used for patient testing purposes. It should not be regarded as investigational or for research. Test performed at [facility], [address] , [place] [address] Karma Martinez MD, PhD - Network Director Blood Venous blood specimen / Unknown Venipuncture / Unknown 07/10/2025 8:38 AM EDT 07/10/2025 8:38 AM EDT Lucretia READ LAB BLOOD ORDERABLES Final R esult Performing Organization Address City/[facility]/ZIP Co de Phone Number [facility] [address] [place] [address] * (ABNORMAL) Iron and TIBC (07/10/2025 8:38 AM EDT) Iron 44 40 - 150 mcg/dL LAB CHEMISTRY METHOD 07/10/2025 11:02 AM EDT [facility] TIBC 416 250 - 450 mcg/dL LAB CHEMISTRY METHOD 07/10/2025 11:02 AM EDT [facility] Iron Saturation 11(L) 15 - 50 % LAB CHEMISTRY METHOD 07/10/2025 11:02 AM EDT [facility] Blood Venous blood specimen / Unknown Venipuncture / Unknown 07/10/2025 8:38 AM EDT 07/10/2025 8:38 AM EDT Lucretia READ LAB BLOOD ORDERABLES Final R esult [facility] [address] [place] [address], [place] [phone] * Vitamin A (07/10/2025 8:38 AM EDT) [facility] Vitamin A 43 38 - 106 ug/dL 07/15/2025 7:01 AM EST [facility] Comment: This test was developed and the performance characteristics determined by [facility]. It has not been cleared or approved by the FDA. The laboratory is regulated under CLIA as qualified to perform high-complexity testing. This test is used for patient testing purposes. It should not be regarded as investigational or for research. Test performed at [facility], [address] , [place] [address] Karma Martinez MD, PhD - Network Director Blood Venous blood specimen / Unknown Venipuncture / Unknown 07/10/2025 8:38 AM EDT 07/10/2025 8:38 AM EDT Lucretia READ LAB BLOOD ORDERABLES Final R esult Performing Organization Address City/[facility]/ZIP Co de Phone Number [facility] [address] [place] [address] * (ABNORMAL) Vitamin D 25 hydroxy (07/10/2025 8:38 AM EDT) [facility] Vit D, 25-Hydroxy 11.2(L) 30.0 - 80.0 ng/mL LAB CHEMISTRY METHOD 07/10/2025 11:36 AM EDT [facility] Blood Venous blood specimen / Unknown Venipuncture / Unknown 07/10/2025 8:38 AM EDT 07/10/2025 8:38 AM EDT Lucretia READ LAB BLOOD ORDERABLES Final R esult [facility] [address] [place] [address], * Vitamin B1 (07/10/2025 8:38 AM EDT) [facility] Vitamin B1 Whole Blood 81 38 - 122 ug/L 07/15/2025 7:27 AM EST [facility] Comment: This test was developed and the performance characteristics determined by [facility]. It has not been cleared or approved by the FDA. The laboratory is regulated under CLIA as qualified to perform high-complexity testing. This test is used for patient testing purposes. It should not be regarded as investigational or for research. Test performed at [facility], [address] [place] [address] Karma Martinez MD, PhD - Network Director Blood Venous blood specimen / Unknown Venipuncture / Unknown 07/10/2025 8:38 AM EDT 07/10/2025 8:38 AM EDT Lucretia READ LAB BLOOD ORDERABLES Final R esult Performing Organization Address [facility] [[email or web address]] Co de Phone Number [facility] [address] [place] [address] * Vitamin B6 (07/10/2025 8:38 AM EDT) [facility] Vitamin B6 (Pyridoxine) Level 11 5 - 50 ug/L 07/17/2025 1:33 PM EST [facility] Comment: This test was developed and the performance characteristics determined by [facility]. It has not been cleared or approved by the FDA. The laboratory is regulated under CLIA as qualified to perform high-complexity testing. This test is used for patient testing purposes. It should not be regarded as investigational or for research. Test performed at [facility], [address] [place] [address] Karma Martinez MD, PhD - Network Director Blood Venous blood specimen / Unknown Venipuncture / Unknown 07/10/2025 8:38 AM EDT 07/10/2025 8:38 AM EDT Lucretia READ LAB BLOOD ORDERABLES Final R esult Performing Organization Address City/[facility]/ZIP Co de Phone Number [facility] [address] [place] [address] * Folate (07/10/2025 8:38 AM EDT) [facility] Folate 4.9 2.8 - 17.0 ng/ml LAB CHEMISTRY METHOD 07/10/2025 11:02 AM EDT [facility] Blood Venous blood specimen / Unknown Venipuncture / Unknown 07/10/2025 8:38 AM EDT 07/10/2025 8:38 AM EDT Lucretia READ LAB BLOOD ORDERABLES Final R esult [facility] [address] [place] [address], [place] [phone] * Vitamin B12 (07/10/2025 8:38 AM EDT) [facility] Vitamin B-12 307 250 - 900 pcg/mL LAB CHEMISTRY METHOD 07/10/2025 11:02 AM EDT [facility] Blood Venous blood specimen / Unknown Venipuncture / Unknown 07/10/2025 8:38 AM EDT 07/10/2025 8:38 AM EDT Lucretia READ LAB BLOOD ORDERABLES Final R esult Performing Organization Address City/[facility]/ZIP Co de Phone Number [facility] [address] [place] [address], [place] [phone] * (ABNORMAL) Basic metabolic panel (06/06/2025 8:32 AM EDT) [facility] Sodium 142 133 - 145 mmol/L LAB CHEMISTRY METHOD 06/06/2025 9:50 AM EDT [facility] Potassium 4.2 3.5 - 5.5 mmol/L LAB CHEMISTRY METHOD 06/06/2025 9:50 AM EDT [facility] Chloride 112(H) 96 - 110 mmol/L LAB CHEMISTRY [facility] CO[facility] 27 21 - 32 mmol/L LAB CHEMISTRY METHOD 06/06/2025 9:50 AM [facility] Anion Gap 3 3 - 11 LAB CHEMISTRY METHOD 06/06/2025 9:50 AM [facility] Glucose 80 70 - 100 mg/dL LAB CHEMISTRY METHOD 06/06/2025 9:50 AM [facility] BUN 9 5 - 25 mg/dL LAB CHEMISTRY METHOD 06/06/2025 9:50 AM [facility] Creatinine 0.49(L) 0.50 - 1.10 mg/dL LAB CHEMISTRY METHOD 06/06/2025 9:50 AM [facility] eGFR 111 >=60 mL/min/1. 73m2 LAB CHEMISTRY METHOD 06/06/2025 9:50 AM [facility] Comment:Calculation based on the Chronic Kidney Disease Epidemiology Collaboration (CKD-EPI) equation refit without adjustment for race. BUN/Creatinine Ratio 18.4 LAB CHEMISTRY METHOD 06/06/2025 9:50 AM [facility] Calcium 9.0 8.5 - 10.5 mg/dL LAB CHEMISTRY METHOD 06/06/2025 9:50 AM [facility] Blood Venous blood specimen / Unknown Venipuncture / Unknown 06/06/2025 8:32 AM EDT 06/06/2025 9:06 AM EDT us Sarah READ LAB BLOOD ORDERABLES Fi nal Result [facility] [address] [place] [address], * (ABNORMAL) Anti-Xa - Every 6 Hours (06/05/2025 8:02 PM EDT) Only the most recent of2 resultswithin the time period is included. Heparin Anti-Xa 1.25(H) 0.30 - 0.70 I Unit/mL LAB COAGULATION METHOD 06/05/2025 9:16 PM EDT [facility] Blood Venous blood specimen / Unknown Venipuncture / Unknown 06/05/2025 8:02 PM EDT 06/05/2025 8:31 PM EDT Narrative [facility] - 06/05/2025 9:16 PM EDT Therapeutic range listed is for Unfractionated Heparin. LMW Heparin therapeutic range: 0.50-1.20 IU/mL us Bobby Abrams MD LAB BLOOD ORDERABLES Final Resul t [facility] [address] [place] [address], [place] [phone] * CT Angio Chest wo and/or w Contrast (06/05/2025 3:25 PM EDT) Anatomical Region Laterality Modality Body [...] Signed Date: 06/05/2025 15:59 ET Workstation ID: [id number] Transcribed By: Self Edit Transcribed Date: 06/05/2025 15:47 ET Narrative 06/05/2025 3:59 PM EDT PROCEDURE: CT ANGIO CHEST INDICATION: PE suspected, high prob COMPARISON: None. TECHNIQUE: CT pulmonary angiogram performed following uneventful IV administration of ISOVUE contrast material with bolus timing technique from the thoracic inlet through the lung bases. 3-D multiplanar reformations were obtained by the technologist on an independent workstation. GE Lightspeed VCT dose reduction utilizing iterative reconstruction. Total [...] obtained by the technologist on anindependent workstation. GE ICEdotpeed VCT dose reduction utilizing iterative reconstruction. Total [...] Signed Date: 06/05/2025 15:59 ET Workstation ID: [id number] Transcribed By: Self Edit Transcribed Date: 06/05/2025 15:47 ET us Bobby Abrams MD IMG CT PROCEDURES Final Result * B-type natriuretic peptide (06/05/2025 1:45 PM EDT) BNP 92 <=100 pcg/mL LAB CHEMISTRY METHOD 06/05/2025 2:38 PM EDT [facility] Blood Venous blood specimen / Unknown Venipuncture / Unknown 06/05/2025 1:45 PM EDT 06/05/2025 1:58 PM EDT Bobby Abrams MD LAB BLOOD ORDERABLES Final Resul t [facility] [address] [place] [address], [place] [phone] * [facility] 30-74 MINUTES (06/05/2025 10:56 AM [...] Comments: DVT refractory Xarelto requiring IV heparin Bobby Abrams MD IN CLINIC/BEDSIDE ORDERABLES Fin al Result * Vascular US duplex IVC complete (05/30/2025 10:30 AM EDT) Anatomical Region Laterality Modality Vascular, Abdomen Ultrasound Historical Provider CV VASCULAR PROCEDURES Fi nal Result * (ABNORMAL) Urinalysis microscopic only (05/07/2025 1:09 PM EDT) RBC, Urine 3.7 0 - 4 /HPF LAB URINALYSIS - AUTOMATED METHOD 05/07/2025 3:06 PM [facility] WBC, Urine 8.4(H) 0 - 4 /HPF LAB URINALYSIS - AUTOMATED METHOD 05/07/2025 3:06 PM [facility] Squamous Epithelial, Urine 19 0 - 60 /LPF LAB URINALYSIS - AUTOMATED METHOD 05/07/2025 3:06 PM [facility] Bacteria, Urine Many(A) Negative /HPF LAB URINALYSIS - AUTOMATED METHOD 05/07/2025 3:06 PM [facility] Hyaline Casts, Urine 0.8 0 - 3 /LPF LAB URINALYSIS - AUTOMATED METHOD 05/07/2025 3:06 PM [facility] Urine Urine specimen obtained by clean catch procedure / Unknown Non-blood Collection / Unknown 05/07/2025 1:09 PM EDT 05/07/2025 1:09 PM EDT Naresh Scott MD LAB URINE ORDERABLES Final Resul t [facility] [address] [place] [address], [place] [phone] * (ABNORMAL) Culture urine (05/07/2025 1:09 PM EDT) Culture, Urine >=100,000 CFU/mL Escherichia coli(A) KRYSTAL 05/09/2025 10:37 AM EDT [facility] Urine Urine specimen obtained by clean [...] MICROBIOLOGY - GENERAL ORDER SHAW Final Result [facility] [address] [place] [address], [place] [phone] * Lipid panel with reflex to direct LDL (01/14/2025 1:32 PM EDT) Cholesterol 183 0 - 200 mg/dL LAB CHEMISTRY METHOD 01/14/2025 7:40 PM EDT [facility] Triglycerides 81 0 - 150 mg/dL LAB CHEMISTRY METHOD 01/14/2025 7:40 PM EDT [facility] HDL 71 >=40 mg/dL LAB CHEMISTRY METHOD 01/14/2025 7:40 PM EDT [facility] LDL Calculated 96 0 - 100 mg/dL LAB CHEMISTRY METHOD 01/14/2025 7:40 PM EDT [facility] VLDL Cholesterol Evaristo 16.2 mg/dL LAB CHEMISTRY METHOD 01/14/2025 7:40 PM EDT [facility] Non HDL Chol. (LDL+VLDL) 112 <145 mg/dL LAB CHEMISTRY METHOD 01/14/2025 7:40 PM EDT [facility] Chol/HDL Ratio 2.6 0.0 - 4.4 LAB CHEMISTRY METHOD 01/14/2025 7:40 PM EDT [facility] Blood Venous blood specimen / Unknown Venipuncture / Unknown 01/14/2025 1:32 PM EDT 01/14/2025 1:33 PM EDT us Antelmo Ruelas MD LAB BLOOD ORDERABLES Final Res ult [facility] [address] [place] [address], [place] [phone] * MG Mammo Digital Screening w Santy bilat (12/16/2024 5:36 PM EDT) Anatomical Region Laterality Modality Breast Bilateral Mammography 12/17/2024 5:12 PM EDT Impressions 12/17/2024 5:14 PM EDT No mammographic evidence of malignancy. BREAST DENSITY: B - There are scattered areas of fibroglandular density. BI-RADS CATEGORY: 1 - NEGATIVE RECOMMENDATION: Screening bilateral mammogram is recommended in 1 year. MAMMO LOCATION: [facility], [address] [place] [address], [id number], . -------- FINAL REPORT -------- Dictated By: Alison Chavarria Dictated Date: 12/17/2024 17:12 ET Assigned Physician: Aliosn Chavarria Reviewed and Electronically Signed By: Alison Chavarria Signed Date: 12/17/2024 17:14 ET Workstation ID: [id number] Transcribed By: Self Edit Transcribed Date: 12/17/2024 [...] is recommended in 1 year. MAMMO LOCATION: [facility], [address] [place] [address], [address], . -------- FINAL REPORT -------- Dictated By: Alison Chavarria Dictated Date: 12/17/2024 17:12 ET Assigned Physician: Alison Chavarria Reviewed and Electronically Signed By: Alison Chavarria Signed Date: 12/17/2024 17:14 ET Workstation ID: [id number] Transcribed By: Self Edit Transcribed Date: 12/17/2024 17:12 ET Antelmo Ruelas MD IMG BI PROCEDURES Final Result * Colonoscopy (03/23/2023) Colonoscopy no interpretation , abstracted Anatomical Region Laterality Modality Other Historical Provider HEALTH MAINTENANCE Final Result from Last 3 Months or Most Recently Relevant to Health Maintenance Insurance [facility] [employer] AUTO GENERIC AUTO [employer]IC PLAN Advance Directives * Full Code - [...] currently active code status orders. Care Teams Judicial Administrative Assistant Relationship Specialty Start Date End Date Antelmo Ruelas MD [address] [place] [id number] PCP - General Internal Medicine 07/01/11
--- OUTSIDE RECORDS SUMMARY | 2025-08-01 08:30 | XMS_ITS ---
Author Organization [address] [facility] Address [address] [place] [address] Phone Care Team Providers Care Clinical Project Coordinator Name Role Phone Antelmo Ruelas MD Primary Care Provider [phone] Active Problems Problem Noted Date Diagnosed Date DVT (deep venous thrombosis) ([facility] V24, [facility]/ [facility] V28) 06/05/2025 S/P bariatric surgery 12/12/2024 History of recurrent deep vein thrombosis (DVT) 10/21/2024 Bilateral primary osteoarthritis of knee 025 Abdominal pain 10/16/2024 Phlebitis 10/16/2024 Class 2 severe obesity with serious comorbidity and body mass index (BMI) of 35.0 to 35.9 in adult 10/16/2024 Pulmonary embolism without a cute cor pulmonale ([facility] V24, [facility] V28) 07/25/2024 Hepatic steatosis 11/10/2022 History of COVID-19 09/14/2021 Obstructive sleep apnea 12/09/2020 Overview (07/01/2024): [facility] Home Sleep Apnea Test: Date [...]
[2025-08-21 06:43] VITALS: BP 131/87; PULSE 70; RESP 16; TEMP 36.8; O2SAT 100; BMI 33.4
--- NOTE | 2025-08-21 07:49 | MHC.SHP ---
Pre-Procedural Eval Section A - 24 Hr Update-Section A only Date of Service: 08/21/25 The patient is an INPATIENT: No Changes since office visit: No Cold of Flu in the past 2 weeks, No New Medical Problems, No Changes in Medication and No Patient answered all questions The patient has been examined within 24 hours of the surgical procedure. The History & Physical has been completed within 30 days and I have reviewed it.: Yes Section B - Complete if H&P > 30 days Chief Complaint: Carpal tunnel syndrome, left upper limb Allergies: Allergies Allergy/AdvReac Type Severity Reaction Status Date / Time No Known Allergies Allergy Verified 07/29/25 13:08 Plan I have reviewed the history and physical and performed a pertinent physical examination on my patient. No changes have occurred unless specified. Time Spent With Patient Time: Total time managing care of this patient today ____ minutes.
--- NOTE | 2025-08-21 07:49 | W.PM.OPN ---
Operative Note Operative Note Date of Service: 08/21/25 Narrative: Preop diagnosis: 1. Left Carpal tunnel syndrome Postop diagnosis: same Procedure: 1. Left Carpal tunnel release Surgeon: Sheree Lin MD Dye Beck Reel Operator: Dar READ Anesthesia: local block using 1% lidocaine with epinephrine Findings: Thickened transverse carpal ligament. EBL: Less than 5 mL Specimens: None Complications: None Disposition: Brought to recovery room in stable condition Plan: Follow-up for 10-14 days for wound check and suture removal Indications: The patient is 55 years old, with left carpal tunnel syndrome that has been unresponsive to nonoperative management. The risks and benefits of operative treatment including but not limited to risk of damage to blood vessels, nerves, tendons, infection, persistent pain, persistent symptoms, or possible need for additional surgery were discussed with the patient and the patient wishes to proceed with surgery. Procedure: Once consent was obtained a local block was performed using a combination of 1% lidocaine with epinephrine. The patient was then brought back to the operating suite and placed on the operative table in supine position. The left upper extremity was prepped and draped in a standard surgical fashion. Once assured that we had a good block, a 2.0 cm longitudinal incision was made centered over the carpal tunnel. The incision was made through the skin to the subcutaneous tissues using a #15 blade. Dissection was made down to the level of the transverse carpal ligament with care being taken to protect the palmar cutaneous nerve. Once the transverse carpal ligament was clearly visualized, a longitudinal incision was made in the transverse carpal ligament 1st using a #15 blade, then using tenotomy scissors under direct visualization. Care was taken to look for and protect the motor branch of the median nerve when seen in this area. Once satisfied with our carpal tunnel release the wound was copiously irrigated with normal saline and hemostasis was obtained with a brief period of local pressure. The skin edges were reapproximated with some 5.0 nylon suture material and a sterile dressing was applied. The patient appears to have tolerated the procedure well and with no complications. All digits were well vascularized at the conclusion of the case.
[2025-08-21 08:33] VITALS: BP 133/88; PULSE 76; RESP 15; O2SAT 99
== END 2025-08-21 08:38 | disposition home or self-care (01) ==
PROVIDERS: PCP Internal Medicine; Visit Provider Orthopaedic Surgery
PROC: (CPT 64721; principal; 2025-08-21 07:30)
DX: G56.02 Carpal tunnel syndrome, left upper limb (principal); Z98.84 Bariatric surgery status; Z90.710 Acquired absence of both cervix and uterus; Z98.890 Other specified postprocedural states
CPT/HCPCS: 64721; J0165; J2003; J2004

== ENCOUNTER → 2025-08-21 06:26 | Outpatient (BNV) | payer OTHER, SELFPAY | PROVIDERS: PCP Internal Medicine; Visit Provider Orthopaedic Surgery | DX: G56.02 Carpal tunnel syndrome, left upper limb (principal) | CPT/HCPCS: 64721 ==

== ENCOUNTER 2025-09-03 11:11 | Outpatient (AMB) | payer OTHER, SELFPAY ==
--- OUTSIDE RECORDS SUMMARY | 2025-09-03 11:12 | XMS_ITS ---
Author Organization [address] [place] [address] Address [address] [place] [address] Phone Care Team Providers Care Wire Spiral Binder Name Role Phone Antelmo Ruelas MD Primary Care Provider [phone] Community Health Worker Program Status:Identified (Enrolling) Start date:08/28/2025 Enrollment reason:Hypertension management Overview Community Health Worker Program Case Team Name Relationship Phone Kenyetat Canales(Responsible Staff) Community Hea lth Worker Continued Care and Services Coordination
--- NOTE | 2025-09-03 11:13 | A.OFFVIS_ITS ---
Vital Signs 09/03/25 11:14 Height 5 ft 8 in Weight 220 lb BMI 33.4 Intake Visit Reasons: PO LT CTR 08/21/25 AR Intake Note: Yojana is a 55 year old right hand dominant female who presents today for a Post- Operative Visit status post Left Carpal Tunnel Release, DOS: 08/21/[address] Lin. Patient reports she is doing well. Denies numbness, tingling, finger locking. Sutures removed and steri strips applied Allergies No Known Allergies Allergy (Verified 09/03/25 11:20) HPI HPI PO LT CTR 08/21/25 AR: Details: Yojana is a 55 year old right hand dominant female who presents today for a Post- Operative Visit status post Left Carpal Tunnel Release, DOS: 08/21/[address] Lin. Patient reports she is doing well. Denies numbness, tingling, finger locking. Patient does report that she is experiencing pain in the area of the incision site on the wrist, as well as to the sides of incision. Denies redness, worsening swelling, and discharge. Sutures removed and steri strips applied PFSH Surgical History Hx of breast biopsy History of back surgery Hx of hysterectomy S/P laparoscopic sleeve gastrectomy Hx of laparoscopic gastric banding Hx of colonoscopy Family History Mother No problems noted. Father No problems noted. Sister No problems noted. Sister No problems noted. Son No problems noted. Son No problems noted. Son No problems noted. Daughter No problems noted. 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 Neuro: Normal sensation of the tips of all digits of the left hand at this time Vascular: Cap refill brisk Pain: Tenderness to even extremely gentle palpation of the incision site on the volar left wrist Pain to palpation of the area just radial and ulnar to the incision site ROM: Patient is able to make a closed fist and extend all digits of the left hand fully Skin: Well approximated and well healing incision site noted on volar left wrist No lacerations or abrasions. General: No ecchymosis, erythema, or evidence of infection. Psych: Appears grossly normal Affect normal Attitude cooperative Assessment & Plan Assessment & Plan (1) Carpal tunnel syndrome, bilateral: Code(s): G56.03 - Carpal tunnel syndrome, bilateral upper limbs Category: Medical Plan 1. Status post left carpal tunnel release DOS 08/21/2025 With symptomatic resolution of numbness and tingling, but associated hyper sensitivity and pillar pain Patient appears to be recovering well postoperatively Patient is educated about the typical recovery course No under water times one-week, 2 lb weight limit x2 weeks Patient appears to be recovering well, however I feel she would benefit from a referral to OT for range of motion and desensitization of the left wrist status post left carpal tunnel release Patient is educated and worrisome signs and symptoms, and should call us if they experience any of these, including but not limited to redness, swelling, increased pain, and discharge Patient understands this and is amenable to this plan Follow-up in 4-6 weeks for range of motion and pain check, sooner with any acute concerns Orders: Orders OT Evaluation and Treatment Today G56.03 - Carpal tunnel syndrome, bilateral upper limbs Coding Level of Care Code Global (96106) Diagnoses Carpal tunnel syndrome, bilateral G56.03
--- OUTSIDE RECORDS SUMMARY | 2025-09-03 11:13 | XMS_ITS | Data Portability ---
Author Organization [facility], [address] Address [address] [place] [address] Assessment No assessment recorded. Plan of Treatment [...] ICD10 Code Diagnosis IMO Codes Diagnosis Note [id number] [address] [place] [address] 05/06/2020 18:15:23 05/06/2020 18:40:11 [id number] Andreia Rapp MD [address] [place] [address] 04/18/2023 16:33:56 04/18/2023 18:06:29 Tuberculosis screening [id number] Z11.1 Health Concerns Section Related Observation LastModified by Organization Detai ls LastModified Time None Recorded Concern Status LastModified by Organization Details LastModified Time None Recorded Advance Directives Directive None Recorded Payers Insurance Date Sequence Insurance Name Policy Number Policy Lomeli Covered Member ID Lomeli Member ID Guarantor Name 04/18/2023 [employer] [facility] [employer] [facility] OTHER Yojana Goff 04/18/2023 1 [facility] - [facility] (MEDICAID REPLACEMENT - HMO) SAMI Goff [id number] Yojana Goff OBGyn Episode No OBEpisode recorded.
--- OUTSIDE RECORDS SUMMARY | 2025-09-03 11:13 | XMS_ITS ---
Author Organization [address] [facility] Address [address] [place] [address] Phone Care Team Providers Care Vice President [employer] Name Role Phone Antelmo Ruelas MD Primary Care Provider [phone] Active Problems Problem Noted Date Diagnosed Date DVT (deep venous thrombosis) 06/05/2025 S/P bariatric surgery 12/12/2024 History of recurrent deep vein thrombosis (DVT) 10/21/2024 Bilateral primary osteoarthritis of knee 025 Abdominal pain 10/16/2024 Phlebitis 10/16/2024 Class 2 severe obesity with serious comorbidity and body mass index (BMI) of 35.0 to 35.9 in adult 10/16/2024 Pulmonary embolism without acute cor pulmonale 1 09/24/2023 Hepatic steatosis 11/10/2022 History of COVID-19 09/14/2021 Obstructive sleep apnea 12/09/2020 Overview (07/01/2024): [facility] Home Sleep Apnea Test: Date 12/02/2020; [...] and apocrine metaplasia. 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 NO potential for recurrance at that location. 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
--- OUTSIDE RECORDS SUMMARY | 2025-09-03 11:13 | XMS_ITS | Clinical Summary ---
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 ORDERABLES Final R esult [facility] [address] [place] [address], [place] [phone] * Vitamin A (07/10/2025 8:38 AM EDT) Pathologist [facility] Vitamin A 43 38 - 106 ug/dL 07/15/2025 7:01 AM EST [facility] Comment: This test was developed and the performance characteristics determined by [facility]. It has not been cleared or approved by the FDA. The laboratory is regulated under CLIA as qualified to perform high-complexity testing. This test is used for patient testing purposes. It should not be regarded as investigational or for research. Test performed at [facility], [address] , [place] [address] Karma Martinez MD, PhD - [employer] Blood Venous blood specimen / Unknown Venipuncture / Unknown 07/10/2025 8:38 AM EDT 07/10/2025 8:38 AM EDT Lucretia READ LAB BLOOD ORDERABLES Final R esult Performing Organization Address City/[facility]/ZIP Co de Phone Number [facility] [address] [place] [address] * (ABNORMAL) Vitamin D 25 hydroxy (07/10/2025 8:38 AM EDT) Pathologist [facility] Vit D, 25-Hydroxy 11.2(L) 30.0 - 80.0 ng/mL LAB CHEMISTRY METHOD 07/10/2025 11:36 AM EDT [facility] Blood Venous blood specimen / Unknown Venipuncture / Unknown 07/10/2025 8:38 AM EDT 07/10/2025 8:38 AM EDT Lucretia READ LAB BLOOD ORDERABLES Final R esult [facility] [address] [place] [address], * Vitamin B1 (07/10/2025 8:38 AM EDT) Vitamin B1 Whole Blood 81 38 - 122 ug/L 07/15/2025 7:27 AM EST [facility] Comment: This test was developed and the performance characteristics determined by [facility]. It has not been cleared or approved by the FDA. The laboratory is regulated under CLIA as qualified to perform high-complexity testing. This test is used for patient testing purposes. It should not be regarded as investigational or for research. Test performed at [facility], [address] [place] [address] Karma Martinez MD, PhD - [employer] Blood Venous blood specimen / Unknown Venipuncture / Unknown 07/10/2025 8:38 AM EDT 07/10/2025 8:38 AM EDT Lucretia READ LAB BLOOD ORDERABLES Final R esult [facility] [address] [place] [address] * Vitamin B6 (07/10/2025 8:38 AM EDT) Vitamin B6 (Pyridoxine) Level 11 5 - 50 ug/L 07/17/2025 1:33 PM EST [facility] Comment: This test was developed and the performance characteristics determined by [facility]. It has not been cleared or approved by the FDA. The laboratory is regulated under CLIA as qualified to perform high-complexity testing. This test is used for patient testing purposes. It should not be regarded as investigational or for research. Test performed at [facility], [address] , [place] [address] Karma Martinez MD, PhD - [employer] Blood Venous blood specimen / Unknown Venipuncture / Unknown 07/10/2025 8:38 AM EDT 07/10/2025 8:38 AM EDT us Lucretia READ LAB BLOOD ORDERABLES Final R esult [facility] [address] [place] [address] * Folate (07/10/2025 8:38 AM EDT) Pathologist [facility] Folate 4.9 2.8 - 17.0 ng/ml LAB CHEMISTRY METHOD 07/10/2025 11:02 AM EDT [facility] Blood Venous blood specimen / Unknown Venipuncture / Unknown 07/10/2025 8:38 AM EDT 07/10/2025 8:38 AM EDT us Lucretia READ LAB BLOOD ORDERABLES Final R esult Performing Organization Address [facility] Co de Phone Number [facility] [address] [place] [address], [place] [phone] * Vitamin B12 (07/10/2025 8:38 AM EDT) [facility] Vitamin B-12 307 250 - 900 pcg/mL LAB CHEMISTRY METHOD 07/10/2025 11:02 AM EDT [facility] Blood Venous blood specimen / Unknown Venipuncture / Unknown 07/10/2025 8:38 AM EDT 07/10/2025 8:38 AM EDT us Lucretia READ LAB BLOOD ORDERABLES Final R esult Performing Organization Address City/[facility]/ZIP Co de Phone Number [facility] [address] [place] [address], [place] [phone] * (ABNORMAL) Basic metabolic panel (06/06/2025 8:32 AM EDT) Sodium 142 133 - 145 mmol/L LAB CHEMISTRY METHOD 06/06/2025 9:50 AM [facility] Potassium 4.2 3.5 - 5.5 mmol/L LAB CHEMISTRY METHOD 06/06/2025 9:50 AM [facility] Chloride 112(H) 96 - 110 mmol/L LAB CHEMISTRY METHOD 06/06/2025 9:50 AM [facility] CO2 27 21 - 32 mmol/L LAB CHEMISTRY METHOD 06/06/2025 9:50 AM [facility] Anion Gap 3 3 - 11 LAB CHEMISTRY METHOD 06/06/2025 9:50 AM [facility] Glucose 80 70 - 100 mg/dL LAB CHEMISTRY METHOD 06/06/2025 9:50 AM [facility] BUN 9 5 - 25 mg/dL LAB CHEMISTRY METHOD 06/06/2025 9:50 AM [facility] Creatinine 0.49(L) 0.50 - 1.10 mg/dL LAB CHEMISTRY METHOD 06/06/2025 9:50 AM [facility] eGFR 111 >=60 mL/min/1. 73m2 LAB CHEMISTRY METHOD 06/06/2025 9:50 AM [facility] Comment:Calculation based on the Chronic Kidney Disease Epidemiology Collaboration (CKD-EPI) equation refit without adjustment for race. BUN/Creatinine Ratio 18.4 LAB CHEMISTRY METHOD 06/06/2025 9:50 AM [facility] Calcium 9.0 8.5 - 10.5 mg/dL LAB CHEMISTRY METHOD 06/06/2025 9:50 AM [facility] Blood Venous blood specimen / Unknown Venipuncture / Unknown 06/06/2025 8:32 AM EDT 06/06/2025 9:06 AM EDT us Sarah READ LAB BLOOD ORDERABLES Fi nal Result Performing Organization Address [facility]/ZIP Co de Phone Number [facility] [address] [place] [address], [place] [phone] * (ABNORMAL) Anti-Xa - Every 6 Hours (06/05/2025 8:02 PM EDT) Only the most recent of2 resultswithin the time period is included. Heparin Anti-Xa 1.25(H) 0.30 - 0.70 I Unit/mL LAB COAGULATION METHOD 06/05/2025 9:16 PM EDT [facility] Blood Venous blood specimen / Unknown Venipuncture / Unknown 06/05/2025 8:02 PM EDT 06/05/2025 8:31 PM EDT Narrative [facility] - 06/05/2025 9:16 PM EDT Therapeutic range listed is for Unfractionated Heparin. LMW Heparin therapeutic range: 0.50-1.20 IU/mL Bobby Abrams MD LAB BLOOD ORDERABLES Final Resul t Performing Organization Address [facility] Co de Phone Number [facility] [address] [place] [address], [place] [phone] * CT Angio Chest wo and/or w [...] Signed Date: 06/05/2025 15:59 ET Workstation ID: [id number] Transcribed By: Self Edit Transcribed Date: 06/05/2025 15:47 ET Narrative 06/05/2025 3:59 PM EDT PROCEDURE: CT ANGIO CHEST INDICATION: PE suspected, high prob COMPARISON: None. TECHNIQUE: CT pulmonary angiogram performed following uneventful IV administration of ISOVUE contrast material with bolus timing technique from the thoracic inlet through the lung bases. 3-D multiplanar reformations were obtained by the technologist on an independent workstation. GE Numecentpeed VCT dose reduction utilizing iterative reconstruction. Total [...] by the technologist on anindependent workstation. GE Numec[employer]peed VCT dose reduction utilizing iterative reconstruction. Total [...] Signed Date: 06/05/2025 15:59 ET Workstation ID: [id number] Transcribed By: Self Edit Transcribed Date: 06/05/2025 15:47 ET Bobby Abrams MD IMG CT PROCEDURES Final Result * B-type natriuretic peptide (06/05/2025 1:45 PM EDT) BNP 92 <=100 pcg/mL LAB CHEMISTRY METHOD 06/05/2025 2:38 PM EDT [facility] Blood Venous blood specimen / Unknown Venipuncture / Unknown 06/05/2025 1:45 PM EDT 06/05/2025 1:58 PM EDT Bobby Abrams MD LAB BLOOD ORDERABLES Final Resul t [facility] [address] [place] [address], [place] [phone] * [place] CRITICAL CARE 30-74 MINUTES (06/05/2025 10:56 AM EDT) Bobby Hess MD - 06/05/2025 10:56 AM EDT Bobby [...] IN CLINIC/BEDSIDE ORDERABLES Fin al Result * Lipid panel with reflex to direct LDL (01/14/2025 1:32 PM EDT) Cholesterol 183 0 - 200 mg/dL LAB CHEMISTRY METHOD 01/14/2025 7:40 PM EDT [facility] Triglycerides 81 0 - 150 mg/dL LAB CHEMISTRY METHOD 01/14/2025 7:40 PM EDT [facility] HDL 71 >=40 mg/dL LAB CHEMISTRY METHOD 01/14/2025 7:40 PM EDT [facility] LDL Calculated 96 0 - 100 mg/dL LAB CHEMISTRY METHOD 01/14/2025 7:40 PM EDT [facility] VLDL Cholesterol Evaristo 16.2 mg/dL LAB CHEMISTRY METHOD 01/14/2025 7:40 PM EDT [facility] Non HDL Chol. (LDL+VLDL) 112 <145 mg/dL LAB CHEMISTRY METHOD 01/14/2025 7:40 PM EDT [facility] Chol/HDL Ratio 2.6 0.0 - 4.4 LAB CHEMISTRY METHOD 01/14/2025 7:40 PM EDT [facility] Blood Venous blood specimen / Unknown Venipuncture / Unknown 01/14/2025 1:32 PM EDT 01/14/2025 1:33 PM EDT us Antelmo Ruelas MD LAB BLOOD ORDERABLES Final Res ult [facility] [address] [place] [address], [place] [phone] * MG Mammo Digital Screening w Santy bilat (12/16/2024 5:36 PM EDT) Anatomical Region Laterality Modality Breast Bilateral Mammography 12/17/2024 5:12 PM EDT Impressions 12/17/2024 5:14 PM EDT No mammographic evidence of malignancy. BREAST DENSITY: B - There are scattered areas of fibroglandular density. BI-RADS CATEGORY: 1 - NEGATIVE RECOMMENDATION: Screening bilateral mammogram is recommended in 1 year. MAMMO LOCATION: [facility], [address] [place] [address], [id number], . -------- FINAL REPORT -------- Dictated By: Alison Chavarria Dictated Date: 12/17/2024 17:12 ET Assigned Physician: Alison Chavarria Reviewed and Electronically Signed By: Alison Chavarria Signed Date: 12/17/2024 17:14 ET Workstation ID: [id number] Transcribed By: Self Edit Transcribed Date: 12/17/2024 [...] is recommended in 1 year. MAMMO LOCATION: [facility], [address] [place] [address], [id number], . -------- FINAL REPORT -------- Dictated By: Alison Chavarria Dictated Date: 12/17/2024 17:12 ET Assigned Physician: Alison Chavarria Reviewed and Electronically Signed By: Alison Chavarria Signed Date: 12/17/2024 17:14 ET Workstation ID: [id number] Transcribed By: Self Edit Transcribed Date: 12/17/2024 17:12 ET Antelmo Ruelas MD IMG BI PROCEDURES Final Result * Colonoscopy (03/23/2023) Colonoscopy no interpretation , abstracted Anatomical Region Laterality Modality Other Historical Provider HEALTH MAINTENANCE Final Result from Last 3 Months or Most Recently Relevant to Health Maintenance Insurance [facility] AUTO GENERIC AUTO GENERIC Member Subscriber Plan / Payer (Ef fective 2025-Present) Name:Yojana Goff Relation to Subscriber:Self Name:Yojana Goff Payer ID:[id number] Group ID:Not on file Type:Not on file Address: [address] HEALTH PLAN Advance Directives * Full Code - [...] currently active code status orders. 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
[2025-09-03 11:14] VITALS: BMI 33.4
== END 2025-09-03 11:32 | disposition home or self-care (01) ==
LOC: HO.HOS 11:11
PROVIDERS: PCP Internal Medicine
DX: G56.03 Carpal tunnel syndrome, bilateral upper limbs (principal)
CPT/HCPCS: 99024

== ENCOUNTER → 2025-09-03 11:11 | Outpatient (BNVA) | payer OTHER, SELFPAY | PROVIDERS: PCP Internal Medicine | DX: Z48.811 Encounter for surgical aftercare following surgery on the nervous system (principal); G56.03 Carpal tunnel syndrome, bilateral upper limbs | CPT/HCPCS: 99212 ==